=== PATIENT | female | born 1960 | race African-American/Black ===

== ENCOUNTER 2017-01-01 12:08 | Inpatient (IN) | payer OTHER ==
[2017-01-01 12:35] VITALS: BMI 15.6
--- NOTE | 2017-01-01 16:19 | HP ---
COWS - Scale Resting Pulse: 4= [place] > 121 Sweatin= Chills/Flushing Restless Observation: 1= Difficult to Sit Still Pupil Size: 0= Normal to Room Light Bone or Joint Aches: 4=Acute Joint/Muscle Pain Runny Nose/ Eye Tearin= None GI Upset > 30mins: 2= Nausea/Diarrhea (AND STOMACH CRAMPS) Tremor Observation: 2= Slight Tremor Visible Yawning Observation: 2= >3x During Session Anxiety or Irritability: 2=Irritable/Anxious Goose Flesh Skin: 0=Smooth Skin COWS Score: 18 CIWA Score - CIWA Score Nausea/Vomitin (DIARRHEA) Muscle Tremors: 4-Moderate,w/Arms Extend Anxiety: 4-Mod. Anxious/Guarded Agitation: 4-Moderately Restless Paroxysmal Sweats: 1-Minimal Palms Moist Orientation: 0-Oriented Tacttile Disturbances: 3-Moderate Itch/Numb/Burn Auditory Disturbances: 0-None Visual Disturbances: 0-None Headache: 0-None Present CIWA-Ar Total Score: 19 Admission ROS S - HPI Chief Complaint: DETOX TX FOR HEROIN AND ALCOHOL DEPENDENCE SEEKING DETOX TX Allergies/Adverse Reactions: Allergies Allergy/AdvReac Type Severity Reaction Status Date / Time No Known Drug Allergies Allergy Verified 01/01/17 12:28 chicken Allergy Severe Itching Uncoded 01/01/17 12:28 fish Allergy Severe Itching Uncoded 01/01/17 12:28 History of Present Illness: 56 Y/O AA/FEMALE WITH A HX OF HEROIN,COCAINE,ALCOHOL AND XANAX DEPENDENCE SEEKING DETOX TX Exam Limitations: No Limitations - Ebola screening Have you traveled outside of the country in the last 21 days: No Have you had contact with anyone from an Ebola affected area: No Have you been sick,other than usual withdrawal symptoms: No Do you have a fever: No - Review of Systems Constitutional: Chills, Loss of Appetite, Night Sweats, Changes in sleep, Unintentional Wgt. Loss EENT: reports: Tearing, Nose Congestion, Dental Problems (NO TEEHT) Respiratory: reports: Shortness of Breath (HX ASTHMA), Wheezing Cardiac: reports: No Symptoms Reported GI: reports: Constipated, Diarrhea, Nausea, Vomiting, Abdominal cramping : reports: No Symptoms Reported Musculoskeletal: reports: Back Pain, Joint Pain, Muscle Pain Integumentary: reports: Lesions (COCAINE RASH SCARS FROM SCRATCHING/"DIGGING"), Rash Neuro: reports: Tremors, Unsteady Gait Endocrine: reports: No Symptoms Reported Hematology: reports: No Symptoms Reported Psychiatric: reports: Orientated x3, Anxious, Depressed Other Systems: Reviewed and Negative Patient History - Patient Medical History Hx Anemia: No Hx Asthma: Yes (Pt is on MDI) Hx Chronic Obstructive Pulmonary Disease (COPD): No Hx Cancer: No Hx Cardiac Disorders: No Hx Congestive Heart Failure: No Hx Hypertension: No Hx Hypercholesterolemia: No Hx Pacemaker: No HX Cerebrovascular Accident: No Hx Seizures: No Hx Dementia: No Hx Diabetes: No Hx Gastrointestinal Disorders: No Hx Liver Disease: Yes (hep C) Hx Genitourinary Disorders: No Hx Sexually Transmitted Disorders: Yes (Tx for syphillis) Hx Renal Disease (ESRD): No Hx Thyroid Disease: No Hx Human Immunodeficiency Virus (HIV): Yes (on atripla ) Hx Hepatitis C: Yes Hx Depression: Yes Hx Suicide Attempt: No (DENIES) Hx Bipolar Disorder: No Hx Schizophrenia: Yes - Patient Surgical History Past Surgical History: Yes Hx Neurologic Surgery: No Hx Cataract Extraction: No Hx Cardiac Surgery: No Hx Lung Surgery: No Hx Breast Surgery: No Hx Breast Biopsy: No Hx Abdominal Surgery: No Hx Appendectomy: No Hx Cholecystectomy: No Hx Genitourinary Surgery: No Hx Section: No Hx Orthopedic Surgery: No Hx Hysterectomy: No Other Surgical History: Tubal ligation Anesthesia Reaction: No - PPD History Previous Implant?: Yes Documented Results: Positive w/o proof Implanted On Prior R Admission?: No Results: hx. positive PPD to be Administered?: No - Reproductive History Patient is a Female of Child Bearing Age (11 -55 yrs old): No (POST MENOPAUSAL) Last Menstrual Period: 05/27/94 Patient : No - Smoking Cessation Smoking history: Current every day smoker Have you smoked in the past 12 months: Yes Aproximately how many cigarettes per day: 20 Hx Chewing Tobacco Use: No Initiated information on smoking cessation: Yes 'Breaking Loose' booklet given: 01/01/17 - Substance & Tx. History Hx Alcohol Use: Yes (VODKA/BEER) Hx Substance Use: Yes (XANAX/HEROIN/CRACK) - Substances Abused Heroin Route: Injection Frequency: Daily Amount used: 6-7 BAGS Age of first use: 26 Date of Last Use: 12/31/16 Alcohol Route: Oral Frequency: Daily Amount used: 2 PINTS VODKA Age of first use: 9 Date of Last Use: 12/31/16 Crack Route: Smoking Frequency: Daily Amount used: $100 Age of first use: 36 Date of Last Use: 12/31/16 Alprazolam (Xanax) Route: Oral Frequency: 3-6 times per week Amount used: 6MG Age of first use: 54 Date of Last Use: 12/30/16 Family Disease History - Family Disease History Family Disease History: Heart Disease: Mother, Respiratory: Sister (que) Admission Physical Exam [facility] - Vital Signs Vital Signs: Vital Signs - 24 hr 01/01/17 01/01/17 12:11 12:33 Temperature 98.8 F 96.7 F L Pulse Rate 67 122 H Respiratory 18 18 Rate Blood Pressure 122/50 125/88 - Physical General Appearance: Yes: Moderate Distress, Irritable, Anxious HEENTM: Yes: EOMI, Normocephalic, FARTUN, Pharynx Normal Respiratory: Yes: Chest Non-Tender, Lungs Clear, Normal Breath Sounds, No Respiratory Distress Neck: Yes: Supple, Trachea in good position Breast: Yes: Breast Exam Deferred Cardiology: Yes: Regular Rhythm, Regular Rate, S1, S2 Abdominal: Yes: Normal Bowel Sounds, Non Tender, Soft Genitourinary: Yes: Other (N/C) Back: Yes: Within Normal Limits Musculoskeletal: Yes: full range of Motion, Gait Steady Extremities: Yes: Normal Range of Motion, Non-Tender Neurological: Yes: cleaning manager II-XII NML intact, Fully Oriented, Alert Integumentary: Yes: Dry, Warm Lymphatic: Yes: Within Normal Limits - Diagnostic (1) Hepatitis C Current Visit: Yes Status: Chronic Qualifiers: Viral hepatitis chronicity: chronic (2) Alcohol dependence with uncomplicated withdrawal Current Visit: Yes Status: Acute (3) Bronchial asthma Current Visit: Yes Status: Chronic Qualifiers: Asthma severity: mild intermittent Asthma complication type: uncomplicated Qualified Code(s): J45.20 - Mild intermittent asthma, uncomplicated (4) Cocaine dependence, uncomplicated Current Visit: Yes Status: Acute (5) HIV (human immunodeficiency virus infection) Current Visit: Yes Status: Chronic (6) Nicotine dependence Current Visit: Yes Status: Acute Qualifiers: Nicotine product type: cigarettes Substance use status: uncomplicated Qualified Code(s): F17.210 - Nicotine dependence, cigarettes, uncomplicated (7) Sedative hypnotic or anxiolytic dependence Current Visit: Yes Status: Acute Cleared for Admission [facility] - Detox or Rehab [facility] Level of Care: Medically Managed Detox Regimen/Protocol: Methadone/Librium [facility] Breath Alcohol Content Breath Alcohol Content: 0.285 Urine Pregancy Test - Result Urine Test Results: Negative- NO Line Present Urine Drug Screen - Results Drug Screen Negative: No Urine Drug Screen Results: BZO-Benzodiazepines
[2017-01-01] MEDS ORDERED: chlordiazePOXIDE HCL 25 MG CAPSULE PO PRN (16:37)
[2017-01-01] MEDS ORDERED: MAGNESIUM HYDROX 2400MG/30ML ORAL SUSPENSION 30 ML CUP PO PRN (16:37)
[2017-01-01] MEDS ORDERED: LOPERAMIDE HCL 2 MG CAPSULE PO PRN (16:37)
[2017-01-01] MEDS ORDERED: IBUPROFEN 400 MG TABLET (FP) PO PRN (16:37)
[2017-01-01] MEDS ORDERED: METHADONE HCL 10 MG TABLET (FOR DETOX USE ONLY) PO ONE ×2 (16:37→23:00)
[2017-01-01] MEDS ORDERED: guaiFENesin/D-METHORPHAN HB 10 ML UNIT-DOSE CUPS PO PRN (16:37)
[2017-01-01] MEDS ORDERED: MAG HYDROX/AL HYDROX/SIMETH 30 ML UNIT-DOSE CUP PO PRN (16:37)
[2017-01-01] MEDS ORDERED: chlordiazePOXIDE HCL 25 MG CAPSULE PO ONE (16:37)
[2017-01-01] MEDS ORDERED: P-EPHED 60MG/TRIPROLIDI 2.5MG TABLET PO PRN (16:37)
[2017-01-01] MEDS ORDERED: NICOTINE POLACRILEX 2 MG GUM BC PRN (16:37)
[2017-01-01] MEDS ORDERED: MENTHOL/PHENOL 1 EACH UD MM PRN (16:37)
[2017-01-01] MEDS ORDERED: MAGNESIUM CITRATE 300 ML BOTTLE PO PRN (16:37)
[2017-01-01] MEDS ORDERED: ACETAMINOPHEN 325 MG TABLET (FP) PO PRN (16:37)
[2017-01-01] MEDS: NICOTINE 14 MG/24 HOURS TOPICAL PATCH TD SCH (17:55)
[2017-01-01 21:12] LABS: URINE APPEARANCE SLCLOUDY; URINE BILIRUBIN NEGATIVE (NEGATIVE); URINE BLOOD 1+ (NEGATIVE); URINE COLOR AMBER; URINE GLUCOSE (UA) NEGATIVE (NEGATIVE); URINE KETONE NEGATIVE (NEGATIVE); URINE LEUK ESTERASE NEGATIVE (NEGATIVE); URINE NITRITE NEGATIVE (NEGATIVE); URINE UROBILINOGEN 4.0 E.U/dl mg/dL (0.2-1.0)
[2017-01-01 21:19] LABS: URINE PROTEIN 1+ (NEGATIVE)
[2017-01-01 21:32] LABS: CALCIUM OXALATE CRYSTALS FEW /hpf (NONE SEEN); URINE BACTERIA RARE /hpf (NONE SEEN); URINE MUCUS MANY; URINE RBC 13 /hpf (0-3); URINE WBC 11 /hpf (3-5)
[2017-01-01] MEDS: chlordiazePOXIDE HCL 25 MG CAPSULE PO SCH (22:38)
[2017-01-01] MEDS: THIAMINE HCL 100 MG TABLET (FP) PO SCH (22:38)
[2017-01-02] MEDS: chlordiazePOXIDE HCL 25 MG CAPSULE PO SCH ×4 (05:53→22:23)
--- NOTE | 2017-01-02 09:31 | EKG ---
Test Reason : Blood Pressure : / mmHG Vent. Rate : 043 BPM Atrial Rate : 043 BPM P-R Int : 148 ms QRS Dur : 098 ms QT Int : 494 ms P-R-T Axes : -04 070 034 degrees QTc Int : 417 ms MARKED SINUS BRADYCARDIA INCOMPLETE RIGHT BUNDLE BRANCH BLOCK T WAVE ABNORMALITY, CONSIDER ANTERIOR ISCHEMIA ABNORMAL ECG NO PREVIOUS ECGS AVAILABLE Confirmed by MD ALFRED, SERGIO ([id number]) on 01/02/2017 9:30:56 AM Referred By: Juan Kennedy Confirmed By:SERGIO SIMON MD
[2017-01-02] MEDS ORDERED: METHADONE HCL 10 MG TABLET (FOR DETOX USE ONLY) PO SCH (10:00)
[2017-01-02] MEDS: PRENATAL VITAMINS W/ FOLIC ACID TABLET (FP) PO SCH (10:37)
[2017-01-02] MEDS: NICOTINE 14 MG/24 HOURS TOPICAL PATCH TD SCH (10:39)
[2017-01-02 11:07] LABS: MCH 32.4 pg (25.7-33.7); MCHC 33.7 g/dl (32.0-36.0); MEAN CELL VOLUME 96.1 fl (80-96); MEAN PLT VOLUME 10.6 fl (7.5-11.1); PLATELET COUNT 162 K/MM3 (134-434); RDW 13.3 % (11.6-15.6); WHITE BLOOD COUNT 3.1 K/mm3 (4.0-10.0)
[2017-01-02 11:13] LABS: ALBUMIN 3.7 g/dl (3.4-5.0); ALK PHOS 86 U/L (45-117); ANION GAP 11 (8-16); BILIRUBIN,TOTAL 0.7 mg/dL (0.2-1.0); CALCIUM 8.4 mg/dL (8.5-10.1); CO2 23 mmol/L (21-32); CREATININE 0.8 mg/dL (0.55-1.02); GLUCOSE,RANDOM 95 mg/dL (74-106); SGOT/AST 30 U/L (15-37); SGPT/ALT 24 U/L (12-78); TOT PROT 8.3 g/dl (6.4-8.2)
--- NOTE | 2017-01-02 12:37 | PN ---
S CIWA - CIWA Score Nausea/Vomitin Muscle Tremors: 2 Anxiety: 2 Agitation: 2 Paroxysmal Sweats: 2 Orientation: 0-Oriented Tacttile Disturbances: 2-Mild Itch/Numbness/Burn Auditory Disturbances: 0-None Visual Disturbances: 1-Very Mild Sensitivity Headache: 2-Mild CIWA-Ar Total Score: 15 BHS COWS - Scale Resting Pulse: 0= [place] 80 or Below Sweatin=Flushed/Facial Moisture Restless Observation: 1= Difficult to Sit Still Pupil Size: 0= Normal to Room Light Bone or Joint Aches: 2= Severe Diffuse Aches Runny Nose/ Eye Tearin= Nasal Congestion GI Upset > 30mins: 2= Nausea/Diarrhea Tremor Observation of Outstretched Hands: 2= Slight Tremor Visible Yawning Observation: 0= None Anxiety or Irritability: 2=Irritable/Anxious Goose Flesh Skin: 0=Smooth Skin COWS Score: 12 BHS Progress Note (SOAP) Subjective: interrupted sleep, abdominal cramps, shakes and sweats Objective: 01/02/17 12:37 Vital Signs - 8 hr 01/02/17 01/02/17 01/02/17 04:58 06:51 10:00 Temperature 97.6 F 97.2 F L Pulse Rate 5 L 67 Respiratory 18 16 18 Rate Blood Pressure 105/71 144/61 Laboratory Last Values WBC 3.1 K/mm3 (4.0-10.0) L 01/02/17 06:00 RBC 3.87 M/mm3 (3.60-5.2) 01/02/17 06:00 Hgb 12.5 GM/dL (10.7-15.3) 01/02/17 06:00 Hct 37.2 % (32.4-45.2) 01/02/17 06:00 MCV 96.1 fl (80-96) H 01/02/17 06:00 MCH 32.4 pg (25.7-33.7) 01/02/17 06:00 MCHC 33.7 g/dl (32.0-36.0) 01/02/17 06:00 RDW 13.3 % (11.6-15.6) 01/02/17 06:00 Plt Count 162 K/MM3 (134-434) 01/02/17 06:00 MPV 10.6 fl (7.5-11.1) D 01/02/17 06:00 Sodium 139 mmol/L (136-145) 01/02/17 06:00 Potassium 4.0 mmol/L (3.5-5.1) 01/02/17 06:00 Chloride 105 mmol/L (98-107) 01/02/17 06:00 Carbon Dioxide 23 mmol/L (21-32) 01/02/17 06:00 Anion Gap 11 (8-16) 01/02/17 06:00 BUN 14 mg/dL (7-18) D 01/02/17 06:00 Creatinine 0.8 mg/dL (0.55-1.02) 01/02/17 06:00 Creat Clearance w eGFR > 60 (>60) 01/02/17 06:00 Random Glucose 95 mg/dL (74-106) 01/02/17 06:00 Calcium 8.4 mg/dL (8.5-10.1) L 01/02/17 06:00 Total Bilirubin 0.7 mg/dL (0.2-1.0) D 01/02/17 06:00 AST 30 U/L (15-37) 01/02/17 06:00 ALT 24 U/L (12-78) 01/02/17 06:00 Alkaline Phosphatase 86 U/L (45-117) D 01/02/17 06:00 Total Protein 8.3 g/dl (6.4-8.2) H 01/02/17 06:00 Albumin 3.7 g/dl (3.4-5.0) 01/02/17 06:00 Urine Color Elvira 01/01/17 20:00 Urine Appearance Slcloudy 01/01/17 20:00 Urine pH 5.0 (5.0-8.0) D 01/01/17 20:00 Ur Specific [place] >= 1.030 (1.005-1.025) H 01/01/17 20:00 Urine Protein 1+ (NEGATIVE) H 01/01/17 20:00 Urine Glucose (UA) Negative (NEGATIVE) 01/01/17 20:00 Urine Ketones Negative (NEGATIVE) 01/01/17 20:00 Urine Blood 1+ (NEGATIVE) H 01/01/17 20:00 Urine Nitrite Negative (NEGATIVE) 01/01/17 20:00 Urine Bilirubin Negative (NEGATIVE) 01/01/17 20:00 Urine Urobilinogen 4.0 e.u/dl mg/dL (0.2-1.0) H 01/01/17 20:00 Ur Leukocyte Esterase Negative (NEGATIVE) 01/01/17 20:00 Urine RBC 13 /hpf (0-3) 01/01/17 20:00 Urine WBC 11 /hpf (3-5) 01/01/17 20:00 Ur Epithelial Cells Few /hpf (FEW) 01/01/17 20:00 Calcium Oxalate Crystal Few /hpf (NONE SEEN) 01/01/17 20:00 Urine Bacteria Rare /hpf (NONE SEEN) 01/01/17 20:00 Urine Mucus Many 01/01/17 20:00 lab noted Assessment: 01/02/17 12:37 withdrawal sx Plan: continue detox
[2017-01-02 13:11] LABS: SICKLE CELL SCREEN NEGATIVE (NEGATIVE)
[2017-01-02] MEDS: HYDROCORTISONE 1% TOPICAL CREAM 30 GM TUBE TP PRN (14:44)
[2017-01-02] MEDS: hydrOXYzine PAMOATE 50 MG CAPSULE (FP) PO PRN (14:45)
--- NOTE | 2017-01-02 14:48 | CONSULT ---
[facility] Psychiatric Consult - Data Date of interview: 01/02/17 Admission source: [facility] Identifying data: Readmission to [facility] for this 56 y/o AA female seeking detox treatment on for heroin,benzodiazepine,alcohol and cocaine dependence.Patient is single,a mother of three,domiciled,unemployed and supported on [employer] funds. Substance Abuse History: Confirmed by patient in this interview. Smoking Cessation. Smoking history: Current every day smoker. Have you smoked in the past 12 months: Yes. Aproximately how many cigarettes per day: 20. Hx Chewing Tobacco Use: No. Initiated information on smoking cessation: Yes. 'Breaking Loose' booklet given: 01/01/17. - Substance & Tx. History. Hx Alcohol Use: Yes (VODKA/BEER). Hx Substance Use: Yes (XANAX/HEROIN/CRACK). - Substances Abused. Heroin. Route: Injection. Frequency: Daily. Amount used: 6-7 BAGS. Age of first use: 26. Date of Last Use: 12/31/16. Alcohol. Route: Oral. Frequency: Daily. Amount used: 2 PINTS VODKA. Age of first use: 9. Date of Last Use: 12/31/16. Crack. Route: Smoking. Frequency: Daily. Amount used: $100. Age of first use: 36. Date of Last Use: 12/31/16. Alprazolam (Xanax). Route: Oral. Frequency: 3-6 times per week. Amount used: 6MG. Age of first use: 54. Date of Last Use: 12/30/16 Medical History: HIV infection (on antiretroviral medications),bronchial asthma and chronic skin rash.History of treatment for syphilis. Psychiatric History: Diagnosed with Schizophrenia.History of multiple psychiatric hospitalizations.Known to [facility].Patient reports total non-adherence to psychotropic medications (including methadone maintenance ).Ms Gonzalez was discharged from [facility],months ago,on risperdal and cogentin.Not taken.Patient reports that she dropped out of the MMTP program at [facility] (methadone daily dose = 170 mg).Known history of suicide attempts. Physical/Sexual Abuse/Trauma History: Patient declines to discuss this domain. Additional Comment: Urine Drug Screen Results: BZO-Benzodiazepines.Noted. Mental Status Exam - Mental Status Exam Alert and Oriented to: Time, Place, Person Cognitive Function: Good Patient Appearance: Well Groomed Mood: Nervous, Withdrawn, Anxious Affect: Mood Congruent Patient Behavior: Fatigued, Talkative, Cooperative (medication-seeking) Speech Pattern: Clear Voice Loudness: Normal Thought Process: Goal Oriented Thought Disorder: Not Present Hallucinations: Denies Suicidal Ideation: Denies Homicidal Ideation: Denies Insight/Judgement: Poor Sleep: Poorly, Difficulty falling asleep Appetite: Fair, Weight loss Muscle strength/Tone: Normal Gait/Station: Normal Psychiatric Findings - Problem List ([place] 1, 2,3) (1) Schizophrenia Current Visit: Yes Status: Chronic (2) Alcohol dependence with uncomplicated withdrawal Current Visit: Yes Status: Acute (3) Cocaine dependence, uncomplicated Current Visit: Yes Status: Acute (4) Sedative hypnotic or anxiolytic dependence Current Visit: Yes Status: Acute (5) Nicotine dependence Current Visit: Yes Status: Acute Qualifiers: Nicotine product type: cigarettes Substance use status: uncomplicated Qualified Code(s): F17.210 - Nicotine dependence, cigarettes, uncomplicated (6) HIV (human immunodeficiency virus infection) Current Visit: Yes Status: Chronic (7) Hepatitis C Current Visit: Yes Status: Chronic Qualifiers: Viral hepatitis chronicity: chronic (8) Bronchial asthma Current Visit: Yes Status: Chronic Qualifiers: Asthma severity: mild intermittent Asthma complication type: uncomplicated Qualified Code(s): J45.20 - Mild intermittent asthma, uncomplicated (9) Insomnia Current Visit: Yes Status: Acute - Initial Treatment Plan Initial Treatment Plan: Psychoeducation.Detoxification.Medications : risperdal 0.5 mg po bid + cogentin 0.5 mg po hs.Side effects/benefits of both medications are discussed with the patient.She agrees with this careplan.Observation.
[2017-01-02] MEDS: diphenhydrAMINE HCL 50 MG CAPSULE PO PRN (22:22)
[2017-01-02] MEDS: THIAMINE HCL 100 MG TABLET (FP) PO SCH (22:22)
[2017-01-02] MEDS: risperiDONE 0.5 MG TABLET (FP) PO SCH (22:23)
[2017-01-02] MEDS: BENZTROPINE MESYLATE 0.5 MG TABLET (FP) PO SCH (22:23)
[2017-01-03] MEDS: chlordiazePOXIDE HCL 25 MG CAPSULE PO SCH ×3 (06:28→17:44)
[2017-01-03] MEDS: PRENATAL VITAMINS W/ FOLIC ACID TABLET (FP) PO SCH (10:09)
[2017-01-03] MEDS: METHADONE HCL 5 MG TABLET (FOR DETOX USE ONLY) PO SCH (10:09)
[2017-01-03] MEDS: risperiDONE 0.5 MG TABLET (FP) PO SCH ×2 (10:10→22:15)
[2017-01-03] MEDS: NICOTINE 14 MG/24 HOURS TOPICAL PATCH TD SCH (10:43)
[2017-01-03] MEDS: hydrOXYzine PAMOATE 50 MG CAPSULE (FP) PO PRN (13:59)
--- NOTE | 2017-01-03 19:49 | PN ---
[facility] CIWA - CIWA Score Nausea/Vomitin-No Nausea/No Vomiting Muscle Tremors: 3 Anxiety: 4-Mod. Anxious/Guarded Agitation: 4-Moderately Restless Paroxysmal Sweats: 3 Orientation: 0-Oriented Tacttile Disturbances: 0-None Auditory Disturbances: 0-None Visual Disturbances: 0-None Headache: 0-None Present CIWA-Ar Total Score: 14 S COWS - Scale Resting Pulse: 0= [place] 80 or Below Sweatin=Flushed/Facial Moisture Restless Observation: 1= Difficult to Sit Still Pupil Size: 0= Normal to Room Light Bone or Joint Aches: 1= Mild Discomfort Runny Nose/ Eye Tearin= Nasal Congestion GI Upset > 30mins: 2= Nausea/Diarrhea Tremor Observation of Outstretched Hands: 2= Slight Tremor Visible Yawning Observation: 1= 1-2x During Session Anxiety or Irritability: 2=Irritable/Anxious Goose Flesh Skin: 0=Smooth Skin COWS Score: 12 S Progress Note (SOAP) Objective: 01/03/17 19:48 Vital Signs - 8 hr 01/03/17 01/03/17 15:07 17:41 Temperature 98.6 F 98.1 F Pulse Rate 81 64 Respiratory 18 18 Rate Blood Pressure 148/91 96/52 Laboratory Last Values WBC 3.1 K/mm3 (4.0-10.0) L 01/02/17 06:00 RBC 3.87 M/mm3 (3.60-5.2) 01/02/17 06:00 Hgb 12.5 GM/dL (10.7-15.3) 01/02/17 06:00 Hct 37.2 % (32.4-45.2) 01/02/17 06:00 MCV 96.1 fl (80-96) H 01/02/17 06:00 MCH 32.4 pg (25.7-33.7) 01/02/17 06:00 MCHC 33.7 g/dl (32.0-36.0) 01/02/17 06:00 RDW 13.3 % (11.6-15.6) 01/02/17 06:00 Plt Count 162 K/MM3 (134-434) 01/02/17 06:00 MPV 10.6 fl (7.5-11.1) D 01/02/17 06:00 Sickle Cell Screen Negative (NEGATIVE) 01/02/17 06:00 Sodium 139 mmol/L (136-145) 01/02/17 06:00 Potassium 4.0 mmol/L (3.5-5.1) 01/02/17 06:00 Chloride 105 mmol/L (98-107) 01/02/17 06:00 Carbon Dioxide 23 mmol/L (21-32) 01/02/17 06:00 Anion Gap 11 (8-16) 01/02/17 06:00 BUN 14 mg/dL (7-18) D 01/02/17 06:00 Creatinine 0.8 mg/dL (0.55-1.02) 01/02/17 06:00 Creat Clearance w eGFR > 60 (>60) 01/02/17 06:00 Random Glucose 95 mg/dL (74-106) 01/02/17 06:00 Calcium 8.4 mg/dL (8.5-10.1) L 01/02/17 06:00 Total Bilirubin 0.7 mg/dL (0.2-1.0) D 01/02/17 06:00 AST 30 U/L (15-37) 01/02/17 06:00 ALT 24 U/L (12-78) 01/02/17 06:00 Alkaline Phosphatase 86 U/L (45-117) D 01/02/17 06:00 Total Protein 8.3 g/dl (6.4-8.2) H 01/02/17 06:00 Albumin 3.7 g/dl (3.4-5.0) 01/02/17 06:00 Urine Color Elvira 01/01/17 20:00 Urine Appearance Slcloudy 01/01/17 20:00 Urine pH 5.0 (5.0-8.0) D 01/01/17 20:00 Ur Specific [place] >= 1.030 (1.005-1.025) H 01/01/17 20:00 Urine Protein 1+ (NEGATIVE) H 01/01/17 20:00 Urine Glucose (UA) Negative (NEGATIVE) 01/01/17 20:00 Urine Ketones Negative (NEGATIVE) 01/01/17 20:00 Urine Blood 1+ (NEGATIVE) H 01/01/17 20:00 Urine Nitrite Negative (NEGATIVE) 01/01/17 20:00 Urine Bilirubin Negative (NEGATIVE) 01/01/17 20:00 Urine Urobilinogen 4.0 e.u/dl mg/dL (0.2-1.0) H 01/01/17 20:00 Ur Leukocyte Esterase Negative (NEGATIVE) 01/01/17 20:00 Urine RBC 13 /hpf (0-3) 01/01/17 20:00 Urine WBC 11 /hpf (3-5) 01/01/17 20:00 Ur Epithelial Cells Few /hpf (FEW) 01/01/17 20:00 Calcium Oxalate Crystal Few /hpf (NONE SEEN) 01/01/17 20:00 Urine Bacteria Rare /hpf (NONE SEEN) 01/01/17 20:00 Urine Mucus Many 01/01/17 20:00 RPR Titer Nonreactive (NONREACTIVE) 01/02/17 06:00 labs noted Assessment: 01/03/17 19:49 Withdrawal sx
[2017-01-03] MEDS: THIAMINE HCL 100 MG TABLET (FP) PO SCH (22:15)
[2017-01-03] MEDS: diphenhydrAMINE HCL 50 MG CAPSULE PO PRN (22:15)
[2017-01-03] MEDS: chlordiazePOXIDE 5 MG CAPSULE PO SCH (22:15)
[2017-01-03] MEDS: BENZTROPINE MESYLATE 0.5 MG TABLET (FP) PO SCH (22:15)
[2017-01-04] MEDS: chlordiazePOXIDE 5 MG CAPSULE PO SCH ×3 (05:50→17:22)
[2017-01-04] MEDS: METHADONE HCL 5 MG TABLET (FOR DETOX USE ONLY) PO SCH (10:31)
[2017-01-04] MEDS: PRENATAL VITAMINS W/ FOLIC ACID TABLET (FP) PO SCH (10:31)
[2017-01-04] MEDS: risperiDONE 0.5 MG TABLET (FP) PO SCH ×2 (10:31→22:20)
[2017-01-04] MEDS: NICOTINE 14 MG/24 HOURS TOPICAL PATCH TD SCH (10:33)
--- NOTE | 2017-01-04 11:20 | PN ---
BHS Progress Note (SOAP) Subjective: interrupted sleep agitation irritable Objective: 01/04/17 11:19 Vital Signs Temperature 97.5 F L 01/04/17 10:00 Pulse Rate 74 01/04/17 10:00 Respiratory Rate 18 01/04/17 10:00 Blood Pressure 99/59 01/04/17 10:00 O2 Sat by Pulse Oximetry (%) awake/alert ambulating no acute distress Assessment: 01/04/17 11:19 withdrawal sx Plan: continue detox
[2017-01-04] MEDS: hydrOXYzine PAMOATE 50 MG CAPSULE (FP) PO PRN (13:50)
[2017-01-04] MEDS: HYDROCORTISONE 1% TOPICAL CREAM 30 GM TUBE TP PRN (22:20)
[2017-01-04] MEDS: THIAMINE HCL 100 MG TABLET (FP) PO SCH (22:20)
[2017-01-04] MEDS: chlordiazePOXIDE HCL 10 MG CAPSULE PO SCH (22:20)
[2017-01-04] MEDS: BENZTROPINE MESYLATE 1 MG TABLET (FP) PO SCH (22:20)
[2017-01-05] MEDS: chlordiazePOXIDE HCL 10 MG CAPSULE PO SCH ×3 (05:42→17:58)
[2017-01-05] MEDS ORDERED: METHADONE HCL 10 MG TABLET (FOR DETOX USE ONLY) PO SCH (10:00)
[2017-01-05] MEDS: PRENATAL VITAMINS W/ FOLIC ACID TABLET (FP) PO SCH (10:27)
[2017-01-05] MEDS: NICOTINE 14 MG/24 HOURS TOPICAL PATCH TD SCH (10:27)
[2017-01-05] MEDS: risperiDONE 0.5 MG TABLET (FP) PO SCH ×2 (10:27→22:03)
[2017-01-05] MEDS ORDERED: ALBUTEROL SO4 6.7 GM HFA INHALER IH PRN (11:24)
--- NOTE | 2017-01-05 11:28 | PN ---
BHS Progress Note (SOAP) Subjective: nasua, sweats, interrupted sleep, anxiety, tremors Objective: 01/05/17 11:27 Vital Signs - 8 hr 01/05/17 01/05/17 01/05/17 03:30 06:57 10:32 Temperature 97.4 F L 99.1 F Pulse Rate 64 83 Respiratory 18 16 18 Rate Blood Pressure 119/76 100/63 Laboratory Tests 01/01/17 01/02/17 01/02/17 20:00 06:00 06:00 WBC 3.1 L RBC 3.87 Hgb 12.5 Hct 37.2 MCV 96.1 H MCH 32.4 MCHC 33.7 RDW 13.3 Plt Count 162 MPV 10.6 D Sickle Cell Screen Negative Sodium 139 Potassium 4.0 Chloride 105 Carbon Dioxide 23 Anion Gap 11 BUN 14 D Creatinine 0.8 Creat Clearance w eGFR > 60 Random Glucose 95 Calcium 8.4 L Total Bilirubin 0.7 D AST 30 ALT 24 Alkaline Phosphatase 86 D Total Protein 8.3 H Albumin 3.7 Urine Color Elvira Urine Appearance Slcloudy Urine pH 5.0 D Ur Specific [place] >= 1.030 H Urine Protein 1+ H Urine Glucose (UA) Negative Urine Ketones Negative Urine Blood 1+ H Urine Nitrite Negative Urine Bilirubin Negative Urine Urobilinogen 4.0 e.u/dl H Ur Leukocyte Esterase Negative Urine RBC 13 Urine WBC 11 Ur Epithelial Cells Few Calcium Oxalate Crystal Few Urine Bacteria Rare Urine Mucus Many RPR Titer 01/02/17 06:00 WBC RBC Hgb Hct MCV MCH MCHC RDW Plt Count MPV Sickle Cell Screen Sodium Potassium Chloride Carbon Dioxide Anion Gap BUN Creatinine Creat Clearance w eGFR Random Glucose Calcium Total Bilirubin AST ALT Alkaline Phosphatase Total Protein Albumin Urine Color Urine Appearance Urine pH Ur Specific [place] Urine Protein Urine Glucose (UA) Urine Ketones Urine Blood Urine Nitrite Urine Bilirubin Urine Urobilinogen Ur Leukocyte Esterase Urine RBC Urine WBC Ur Epithelial Cells Calcium Oxalate Crystal Urine Bacteria Urine Mucus RPR Titer Nonreactive 01/05/17 11:27 Assessment: 01/05/17 11:28 withdrawwal sx Plan: cont detox, fluids
[2017-01-05] MEDS: hydrOXYzine PAMOATE 50 MG CAPSULE (FP) PO PRN (13:37)
[2017-01-05] MEDS: diphenhydrAMINE HCL 50 MG CAPSULE PO PRN (22:03)
[2017-01-05] MEDS: THIAMINE HCL 100 MG TABLET (FP) PO SCH (22:03)
[2017-01-05] MEDS: BENZTROPINE MESYLATE 1 MG TABLET (FP) PO SCH (22:04)
[2017-01-06] MEDS ORDERED: METHADONE HCL 5 MG TABLET (FOR DETOX USE ONLY) PO SCH (06:00)
[2017-01-06 06:36] VITALS: BP 101/62; PULSE 80; TEMP 98
--- NOTE | 2017-01-06 09:08 | DS ---
[facility] Detox Discharge Summary Admission Date: 01/01/17 Discharge Date: 01/06/17 - History Present History: Alcohol Dependence, Cocaine Dependence, Opioid Dependence - Physical Exam Results Vital Signs: Vital Signs Temperature 98 F 01/06/17 06:35 Pulse Rate 80 01/06/17 06:35 Respiratory Rate 18 01/06/17 06:35 Blood Pressure 101/62 01/06/17 06:35 O2 Sat by Pulse Oximetry (%) - Treatment Hospital Course: Detox Protocol Followed, Detoxed Safely, Responded well, Discharged Condition Good, Rehab Referral Accepted - Medication Discharge Medications: Ambulatory Orders Efavirenz/Emtricitab/Tenofovir [Atripla -] 1 tab PO DAILY 09/29/15 Albuterol Sulfate Inhaler - [Ventolin HFA Inhaler -] 2 puff IH Q4H PRN 10/03/15 Benztropine Mesylate [Cogentin -] 0.5 mg PO BID #30 tablet 01/02/17 Risperidone [Risperdal] 1 mg PO BID #30 tablet 01/02/17 - Diagnosis (1) Alcohol dependence with uncomplicated withdrawal Current Visit: Yes Status: Chronic (2) Cocaine dependence, uncomplicated Current Visit: Yes Status: Chronic (3) Insomnia Current Visit: Yes Status: Chronic Qualifiers: Insomnia type: primary Qualified Code(s): F51.01 - Primary insomnia (4) Nicotine dependence Current Visit: Yes Status: Chronic Qualifiers: Nicotine product type: cigarettes Substance use status: uncomplicated Qualified Code(s): F17.210 - Nicotine dependence, cigarettes, uncomplicated (5) Sedative hypnotic or anxiolytic dependence Current Visit: Yes Status: Chronic (6) HIV (human immunodeficiency virus infection) Current Visit: Yes Status: Chronic (7) Hepatitis C Current Visit: Yes Status: Chronic Qualifiers: Viral hepatitis chronicity: chronic (8) Methadone maintenance therapy patient Current Visit: No Status: Deleted (9) Sedative, hypnotic or anxiolytic dependence with withdrawal, uncomplicated Current Visit: Yes Status: Chronic - AMA Did Patient Leave Against Medical Advice: No
[2017-01-06] MEDS ORDERED: EFAVIRENZ 600 MG TABLET PO SCH (10:00)
[2017-01-06] MEDS ORDERED: PATIENT'S OWN MEDICATION (NON-FORMULARY) (Efavirenz/Emtricitab/Tenofovir 1 TAB) PO SCH (10:00)
[2017-01-06] MEDS ORDERED: EMTRICITABINE 200MG/TENOFOVIR 300MG PO SCH (10:00)
== END 2017-01-06 09:24 | disposition home or self-care (01) | DRG 773 ==
LOC: YASAS 12:08 → Y6N 16:18
PROVIDERS: ADMIT Internal Medicine Addiction Medicine; ATTEND Internal Medicine Addiction Medicine
PROC: HZ2ZZZZ Detoxification Services for Substance Abuse Treatment (ICD-10-PCS; principal; 2017-01-01)
DX: F11.20 Opioid dependence, uncomplicated (principal); F13.230 Sedative, hypnotic or anxiolytic dependence with withdrawal, uncomplicated; F10.230 Alcohol dependence with withdrawal, uncomplicated; F14.20 Cocaine dependence, uncomplicated; F17.210 Nicotine dependence, cigarettes, uncomplicated; F20.9 Schizophrenia, unspecified; G47.00 Insomnia, unspecified; B18.2 Chronic viral hepatitis C; J45.20 Mild intermittent asthma, uncomplicated; Z21 Asymptomatic human immunodeficiency virus [HIV] infection status; Z87.42 Personal history of other diseases of the female genital tract
CPT/HCPCS: 36415; 71020-TC; 80053; 81003; 81015; 85027; 85660; 86593; 93005; 93010

== ENCOUNTER 2017-04-13 12:03 | Inpatient (IN) | payer OTHER ==
[2017-04-13 12:46] VITALS: BMI 24.1
--- NOTE | 2017-04-13 16:29 | HP ---
COWS - Scale Resting Pulse: 2= [place] 101-120 Sweatin= Chills/Flushing Restless Observation: 1= Difficult to Sit Still Pupil Size: 1= Pupils >than Normal Bone or Joint Aches: 1= Mild Discomfort Runny Nose/ Eye Tearin= Nasal Congestion GI Upset > 30mins: 2= Nausea/Diarrhea Tremor Observation: 2= Slight Tremor Visible Yawning Observation: 1= 1-2x During Session Anxiety or Irritability: 2=Irritable/Anxious Goose Flesh Skin: 3=Piloerection COWS Score: 17 CIWA Score - CIWA Score Nausea/Vomitin Muscle Tremors: 3 Anxiety: 3 Agitation: 3 Paroxysmal Sweats: 3 Orientation: 0-Oriented Tacttile Disturbances: 0-None Auditory Disturbances: 0-None Visual Disturbances: 0-None Headache: 0-None Present CIWA-Ar Total Score: 15 Admission ROS S - HPI Chief Complaint: alcohol, xanax and heorin withdrawl sx Allergies/Adverse Reactions: Allergies Allergy/AdvReac Type Severity Reaction Status Date / Time chicken derived Allergy Severe Itching Verified 04/13/17 16:01 Fish Containing Products Allergy Severe Itching Verified 04/13/17 16:01 No Known Drug Allergies Allergy Verified 01/01/17 12:28 History of Present Illness: 57 yo f with h/o heorin, xanax, and alcohol dependence admitted for inpatient detoxification because of withdrawawl sx when she does not use. no h/o sieuzres , DTs, suicide atemmpts. Has psychiatric history - schizophrenia - on depot medication. Exam Limitations: No Limitations - Ebola screening Have you traveled outside of the country in the last 21 days: No Have you had contact with anyone from an Ebola affected area: No Have you been sick,other than usual withdrawal symptoms: No Do you have a fever: No - Review of Systems Constitutional: Chills, Diaphoresis, Loss of Appetite, Malaise, Night Sweats, Unintentional Wgt. Loss EENT: reports: Nose Congestion Respiratory: reports: No Symptoms reported Cardiac: reports: No Symptoms Reported GI: reports: Diarrhea, Nausea, Poor Appetite, Poor Fluid Intake, Vomiting, Indigestion, Abdominal cramping : reports: No Symptoms Reported Musculoskeletal: reports: Back Pain, Joint Pain, Muscle Pain Integumentary: reports: Flushing, Sweating Neuro: reports: Headache, Numbness, Paresthesia, Tingling, Tremors, Weakness Endocrine: reports: Increased Thirst Hematology: reports: No Symptoms Reported Psychiatric: reports: Judgement Intact, Mood/Affect Appropiate, Orientated x3, Anxious, Depressed Other Systems: Reviewed and Negative Patient History - Patient Medical History Hx Anemia: No Hx Asthma: Yes (Pt is on MDI) Hx Chronic Obstructive Pulmonary Disease (COPD): No Hx Cancer: No Hx Cardiac Disorders: No Hx Congestive Heart Failure: No Hx Hypertension: No Hx Hypercholesterolemia: No Hx Pacemaker: No HX Cerebrovascular Accident: No Hx Seizures: No Hx Dementia: No Hx Diabetes: No Hx Gastrointestinal Disorders: No Hx Liver Disease: Yes (hep C) Hx Genitourinary Disorders: No Hx Sexually Transmitted Disorders: No Hx Renal Disease (ESRD): No Hx Thyroid Disease: No Hx Human Immunodeficiency Virus (HIV): Yes (on atripla ) Hx Hepatitis C: Yes Hx Depression: No Hx Suicide Attempt: No (no si at this time) Hx Bipolar Disorder: No Hx Schizophrenia: Yes (on depot medications) - Patient Surgical History Past Surgical History: Yes Hx Neurologic Surgery: No Hx Cataract Extraction: No Hx Cardiac Surgery: No Hx Lung Surgery: No Hx Breast Surgery: No Hx Breast Biopsy: No Hx Abdominal Surgery: No Hx Appendectomy: No Hx Cholecystectomy: No Hx Genitourinary Surgery: No Hx Section: No Hx Orthopedic Surgery: No Hx Hysterectomy: No Other Surgical History: Tubal ligation Anesthesia Reaction: No - PPD History Previous Implant?: Yes Documented Results: Positive w/proof Implanted On Prior R Admission?: No Results: CXR megative PPD to be Administered?: No - Reproductive History Patient is a Female of Child Bearing Age (11 -55 yrs old): No Last Menstrual Period: 05/27/94 Patient : No - Smoking Cessation Smoking history: Current every day smoker Have you smoked in the past 12 months: Yes Aproximately how many cigarettes per day: 20 Hx Chewing Tobacco Use: No Initiated information on smoking cessation: Yes 'Breaking Loose' booklet given: 04/13/17 - Substance & Tx. History Hx Alcohol Use: Yes Hx Substance Use: Yes Substance Use Type: Alcohol, Cocaine, Heroin, Marijuana, Opiates, Prescribed, Tranquilizers Hx Substance Use Treatment: Yes ([facility]) - Substances Abused Heroin Route: Injection Frequency: Daily Amount used: 6-7 bags Age of first use: 16 Date of Last Use: 04/13/17 Alprazolam (Xanax) Route: Oral Frequency: Daily Amount used: 6-8mg Age of first use: 20 Date of Last Use: 04/12/17 Crack Route: Smoking Frequency: Daily Amount used: 3-4 bags Age of first use: 20 Date of Last Use: 04/12/17 Alcohol Route: Oral Frequency: Daily Amount used: fifth of vodka Age of first use: 9 Date of Last Use: 04/13/17 Family Disease History - Family Disease History Family Disease History: Heart Disease: Mother, Respiratory: Sister (asharvind) Admission Physical Exam [facility] - Vital Signs Vital Signs: Vital Signs - 24 hr 04/13/17 12:43 Temperature 97.8 F Pulse Rate 105 H Respiratory 18 Rate Blood Pressure 102/68 - Physical General Appearance: Yes: Nourished, Appropriately Dressed, Disheveled, Mild Distress, Alcohol on Breath, Thin, Tremorous, Irritable, Sweating, Anxious HEENTM: Yes: EOMI, Hearing grossly Normal, Normocephalic, Normal Voice, FARTUN, Pharynx Normal, Nasal Congestion, Rhinorrhea Respiratory: Yes: Within Normal Limits, Chest Non-Tender, Lungs Clear, Normal Breath Sounds, No Respiratory Distress, No Accessory Muscle Use Neck: Yes: Within Normal Limits, No masses,lesions,Nodules, Supple, Trachea in good position Breast: Yes: Breast Exam Deferred Cardiology: Yes: Within Normal Limits, Regular Rhythm, Regular Rate, S1, S2 Abdominal: Yes: Normal Bowel Sounds, Non Tender, Flat, Soft, Increased Bowel Sounds Genitourinary: Yes: Within Normal Limits Back: Yes: Normal Inspection Musculoskeletal: Yes: full range of Motion, Gait Steady, Pelvis Stable, Back pain Extremities: Yes: Normal Capillary Refill, Normal Range of Motion, Non-Tender, Tremors Neurological: Yes: briquetter operator II-XII NML intact, Fully Oriented, Alert, Motor Strength 5/5, Normal Response, Depressed Affect Integumentary: Yes: Normal Color, Warm, Diaphoresis, Moist, Track Norris (new track norris no infection, no abscess noted) Lymphatic: Yes: Within Normal Limits - Addiitonal Findings: withdrawal sx - Diagnostic (1) Alcohol dependence with uncomplicated withdrawal Current Visit: No Status: Chronic (2) Cocaine dependence, uncomplicated Current Visit: No Status: Chronic (3) HIV (human immunodeficiency virus infection) Current Visit: No Status: Chronic (4) Hepatitis C Current Visit: No Status: Chronic Qualifiers: Viral hepatitis chronicity: chronic (5) Nicotine dependence Current Visit: No Status: Chronic Qualifiers: Nicotine product type: cigarettes Substance use status: uncomplicated Qualified Code(s): F17.210 - Nicotine dependence, cigarettes, uncomplicated (6) Opioid dependence with withdrawal Current Visit: No Status: Chronic (7) Schizophrenia Current Visit: No Status: Chronic (8) Sedative, hypnotic or anxiolytic dependence with withdrawal, uncomplicated Current Visit: No Status: Chronic Cleared for Admission S - Detox or Rehab [facility] Level of Care: Medically Managed Detox Regimen/Protocol: Methadone/Librium S Breath Alcohol Content Breath Alcohol Content: 0 Urine Pregancy Test - Result Urine Test Results: Negative- NO Line Present Urine Drug Screen - Results Drug Screen Negative: No Urine Drug Screen Results: ARANZA-Cocaine, OPI-Opiates, BZO-Benzodiazepines
[2017-04-13] MEDS ORDERED: MAG HYDROX/AL HYDROX/SIMETH 30 ML UNIT-DOSE CUP PO PRN (16:30)
[2017-04-13] MEDS ORDERED: P-EPHED 60MG/TRIPROLIDI 2.5MG TABLET PO PRN (16:30)
[2017-04-13] MEDS ORDERED: MAGNESIUM CITRATE 300 ML BOTTLE PO PRN (16:30)
[2017-04-13] MEDS ORDERED: ACETAMINOPHEN 325 MG TABLET (FP) PO PRN (16:30)
[2017-04-13] MEDS ORDERED: LOPERAMIDE HCL 2 MG CAPSULE PO PRN (16:30)
[2017-04-13] MEDS ORDERED: MAGNESIUM HYDROX 2400MG/30ML ORAL SUSPENSION 30 ML CUP PO PRN (16:30)
[2017-04-13] MEDS ORDERED: guaiFENesin/D-METHORPHAN HB 10 ML UNIT-DOSE CUPS PO PRN (16:30)
[2017-04-13] MEDS ORDERED: MENTHOL/PHENOL 1 EACH UD MM PRN (16:30)
[2017-04-13] MEDS ORDERED: chlordiazePOXIDE HCL 25 MG CAPSULE PO PRN (16:30)
[2017-04-13] MEDS ORDERED: ALBUTEROL SO4 18 GM HFA INHALER IH PRN (16:33)
[2017-04-13] MEDS ORDERED: PATIENT'S OWN MEDICATION (NON-FORMULARY) (Efavirenz/Emtricitab/Tenofovir 1 TAB) PO SCH (16:45)
[2017-04-13] MEDS ORDERED: chlordiazePOXIDE HCL 25 MG CAPSULE PO ONE (19:00)
[2017-04-13] MEDS ORDERED: EMTRICITABINE 200MG/TENOFOVIR 300MG PO ONE (19:00)
[2017-04-13] MEDS ORDERED: METHADONE HCL 10 MG TABLET (FOR DETOX USE ONLY) PO ONE ×2 (19:00→23:00)
[2017-04-13] MEDS ORDERED: EFAVIRENZ 600 MG TABLET PO ONE (19:00)
[2017-04-13] MEDS: NICOTINE 21 MG/24 HOURS TOPICAL PATCH TD SCH (19:25)
--- NOTE | 2017-04-13 20:51 | EKG ---
Test Reason : Blood Pressure : / mmHG Vent. Rate : 059 BPM Atrial Rate : 059 BPM P-R Int : 144 ms QRS Dur : 088 ms QT Int : 432 ms P-R-T Axes : 042 077 027 degrees QTc Int : 427 ms SINUS BRADYCARDIA NONSPECIFIC T WAVE ABNORMALITY ABNORMAL ECG WHEN COMPARED WITH ECG OF 01-JAN-2017 16:58, COMPARED TO EKG NO SIGNIFICANT CHANGE IS FOUND Confirmed by MD SAMM, SAM ([id number]) on 04/13/2017 8:51:25 PM Referred By: Confirmed By:SAM QUIJANO MD
[2017-04-13] MEDS: chlordiazePOXIDE HCL 25 MG CAPSULE PO SCH (22:15)
[2017-04-13] MEDS: THIAMINE HCL 100 MG TABLET (FP) PO SCH (22:15)
[2017-04-14 01:24] LABS: URINE APPEARANCE SLCLOUDY; URINE BILIRUBIN NEGATIVE (NEGATIVE); URINE BLOOD 1+ (NEGATIVE); URINE COLOR AMBER; URINE GLUCOSE (UA) NEGATIVE (NEGATIVE); URINE KETONE NEGATIVE (NEGATIVE); URINE NITRITE NEGATIVE (NEGATIVE); URINE PROTEIN NEGATIVE (NEGATIVE)
[2017-04-14 01:45] LABS: URINE LEUK ESTERASE 3+ (NEGATIVE)
[2017-04-14 01:53] LABS: URINE BACTERIA RARE /hpf (NONE SEEN); URINE HYALINE CAST 2 /lpf; URINE MUCUS MODERATE; URINE RBC 36 /hpf (0-3); URINE WBC 66 /hpf (3-5)
[2017-04-14] MEDS: chlordiazePOXIDE HCL 25 MG CAPSULE PO SCH ×4 (05:41→22:49)
--- NOTE | 2017-04-14 07:34 | CONSULT ---
[facility] Psychiatric Consult - Data Date of interview: 04/14/17 Admission source: [facility] Identifying data: This is 57 years old female with Schizophrenia history , intoxicated with: Alcohol, Cocaine, Xanax and Nicotine Substance Abuse History: - Smoking Cessation. Smoking history: Current every day smoker. Have you smoked in the past 12 months: Yes. Aproximately how many cigarettes per day: 20. Hx Chewing Tobacco Use: No. Initiated information on smoking cessation: Yes. 'Breaking Loose' booklet given: 04/13/17. - Substance & Tx. History. Hx Alcohol Use: Yes. Hx Substance Use: Yes. Substance Use Type : Alcohol, Cocaine, Heroin, Marijuana, Opiates, Prescribed, Tranquilizers. Hx Substance Use Treatment: Yes ([facility] - Substances Abused. Heroin. Route: Injection. Frequency: Daily. Amount used: 6-7 bags. Age of first use: 16. Date of Last Use: 04/13/17. Alprazolam (Xanax). Route: Oral. Frequency: Daily. Amount used: 6-8mg. Age of first use: 20. Date of Last Use : 04/12/17. Crack. Route: Smoking. Frequency: Daily. Amount used: 3-4 bags. Age of first use: 20. Date of Last Use: 04/12/17. Alcohol. Route: Oral. Frequency: Daily. Amount used: fifth of vodka. Age of first use: 9. Date of Last Use: 04/13/17 Medical History: HIV+, HepC+ Psychiatric History: Patient reports history of Paranoid Schizophrenia with nost recent psychoiatric admission at [facility] due to auditory hallucinations, currently stable on Haldol Decanoate 50mg IM per month with last injection on 04/13/17 Physical/Sexual Abuse/Trauma History: Denies Additional Comment: Haldol Decanoate 50mg IM per month with last injection on 04/13/17 Mental Status Exam - Mental Status Exam Alert and Oriented to: Person Cognitive Function: Fair Patient Appearance: Unkempt Mood: Anxious Affect: Constricted Patient Behavior: Cooperative Speech Pattern: Appropriate Voice Loudness: Normal Thought Process: Goal Oriented Thought Disorder: Being Controlled Hallucinations: Denies Suicidal Ideation: Denies Homicidal Ideation: Denies Insight/Judgement: Fair Sleep: Difficulty falling asleep Appetite: Weight loss Muscle strength/Tone: Normal Gait/Station: Normal Additional Comments: Haldol Decanoate 50mg IM per month with last injection on 04/13/17 Psychiatric Findings - Problem List (Toney 1, 2,3) (1) Alcohol dependence with uncomplicated withdrawal Current Visit: No Status: Chronic (2) Cocaine dependence, uncomplicated Current Visit: No Status: Chronic (3) Nicotine dependence Current Visit: No Status: Chronic Qualifiers: Nicotine product type: cigarettes Substance use status: uncomplicated Qualified Code(s): F17.210 - Nicotine dependence, cigarettes, uncomplicated (4) Opioid dependence with withdrawal Current Visit: No Status: Chronic (5) Schizophrenia Current Visit: No Status: Chronic (6) Sedative hypnotic or anxiolytic dependence Current Visit: No Status: Chronic - Initial Treatment Plan Initial Treatment Plan: Haldol Decanoate 50mg IM per month with last injection on 04/13/17
[2017-04-14 10:06] LABS: MCHC 33.7 g/dl (32.0-36.0); MEAN PLT VOLUME 7.8 fl (7.5-11.1); PLATELET COUNT 282 K/MM3 (134-434); RDW 14.8 % (11.6-15.6); WHITE BLOOD COUNT 3.8 K/mm3 (4.0-10.0)
[2017-04-14] MEDS: PRENATAL VITAMINS W/ FOLIC ACID TABLET (FP) PO SCH (10:16)
[2017-04-14] MEDS: METHADONE HCL 10 MG TABLET (FOR DETOX USE ONLY) PO SCH ×2 (10:16→10:19)
[2017-04-14] MEDS: EFAVIRENZ 600 MG TABLET PO SCH (10:17)
[2017-04-14] MEDS: EMTRICITABINE 200MG/TENOFOVIR 300MG PO SCH (10:17)
[2017-04-14] MEDS: NICOTINE 21 MG/24 HOURS TOPICAL PATCH TD SCH (10:17)
[2017-04-14 10:21] LABS: URINE LEUK ESTERASE 2+ (NEGATIVE)
[2017-04-14 10:28] LABS: ALK PHOS 92 U/L (45-117); ANION GAP 10 (8-16); BILIRUBIN,TOTAL 0.3 mg/dL (0.2-1.0); CALCIUM 8.5 mg/dL (8.5-10.1); CO2 19 mmol/L (21-32); CREATININE 0.8 mg/dL (0.55-1.02); GLUCOSE,RANDOM 85 mg/dL (74-106); SGOT/AST 25 U/L (15-37); SGPT/ALT 50 U/L (12-78); TOT PROT 7.8 g/dl (6.4-8.2)
--- NOTE | 2017-04-14 10:29 | PN ---
S CIWA - CIWA Score Nausea/Vomitin Muscle Tremors: 2 Anxiety: 2 Agitation: 2 Paroxysmal Sweats: 3 Orientation: 0-Oriented Tacttile Disturbances: 2-Mild Itch/Numbness/Burn Auditory Disturbances: 0-None Visual Disturbances: 0-None Headache: 0-None Present CIWA-Ar Total Score: 13 BHS COWS - Scale Resting Pulse: 0= [place] 80 or Below Sweatin= Chills/Flushing Restless Observation: 1= Difficult to Sit Still Pupil Size: 1= Pupils >than Normal Bone or Joint Aches: 1= Mild Discomfort Runny Nose/ Eye Tearin= Nasal Congestion GI Upset > 30mins: 1= Stomach Cramp Tremor Observation of Outstretched Hands: 1= Tremor [place], Not Seen Yawning Observation: 0= None Anxiety or Irritability: 1=Feels Anxious/Irritable Goose Flesh Skin: 0=Smooth Skin COWS Score: 8 BHS Progress Note (SOAP) Subjective: interrupted sleep, sweats, Objective: 04/14/17 10:26 Vital Signs Temperature 98.1 F 04/14/17 06:06 Pulse Rate 66 04/14/17 06:06 Respiratory Rate 16 04/14/17 06:06 Blood Pressure 116/67 04/14/17 06:06 O2 Sat by Pulse Oximetry (%) Laboratory Tests 04/13/17 04/14/17 23:37 07:00 WBC 3.8 L RBC 3.63 Hgb 12.0 Hct 35.6 MCV 98.0 H MCH 33.0 MCHC 33.7 RDW 14.8 D Plt Count 282 D MPV 7.8 D Urine Color Elvira Urine Appearance Slcloudy Urine pH 5.0 Ur Specific [place] 1.018 Urine Protein Negative Urine Glucose (UA) Negative Urine Ketones Negative Urine Blood 1+ H Urine Nitrite Negative Urine Bilirubin Negative Urine Urobilinogen 2.0 H Ur Leukocyte Esterase 2+ H Urine WBC (Auto) 66 Urine RBC (Auto) 36 Ur Epithelial Cells Rare Urine Bacteria Rare Hyaline Casts 2 Urine Mucus Moderate pt aox3 in nad ambulating Assessment: 04/14/17 10:27 withdrawal sx's abn. u/a Plan: cont. detox increase fluids repeat u/a, cx
[2017-04-14] MEDS: IBUPROFEN 400 MG TABLET (FP) PO PRN (14:01)
[2017-04-14] MEDS: THIAMINE HCL 100 MG TABLET (FP) PO SCH (22:21)
[2017-04-15] MEDS: chlordiazePOXIDE HCL 25 MG CAPSULE PO SCH ×3 (05:15→17:26)
[2017-04-15] MEDS: IBUPROFEN 400 MG TABLET (FP) PO PRN (08:37)
[2017-04-15] MEDS: METHADONE HCL 5 MG TABLET (FOR DETOX USE ONLY) PO SCH (10:14)
[2017-04-15] MEDS: PRENATAL VITAMINS W/ FOLIC ACID TABLET (FP) PO SCH (10:14)
[2017-04-15] MEDS: EFAVIRENZ 600 MG TABLET PO SCH (10:15)
[2017-04-15] MEDS: NICOTINE 21 MG/24 HOURS TOPICAL PATCH TD SCH (10:15)
[2017-04-15] MEDS: EMTRICITABINE 200MG/TENOFOVIR 300MG PO SCH (10:15)
--- NOTE | 2017-04-15 10:52 | PN ---
S CIWA - CIWA Score Nausea/Vomitin Muscle Tremors: 3 Anxiety: 3 Agitation: 3 Paroxysmal Sweats: 3 Orientation: 0-Oriented Tacttile Disturbances: 0-None Auditory Disturbances: 0-None Visual Disturbances: 0-None Headache: 0-None Present CIWA-Ar Total Score: 15 BHS COWS - Scale Resting Pulse: 0= [place] 80 or Below Sweatin= Chills/Flushing Restless Observation: 1= Difficult to Sit Still Pupil Size: 1= Pupils >than Normal Bone or Joint Aches: 1= Mild Discomfort Runny Nose/ Eye Tearin= Nasal Congestion GI Upset > 30mins: 2= Nausea/Diarrhea Tremor Observation of Outstretched Hands: 2= Slight Tremor Visible Yawning Observation: 1= 1-2x During Session Anxiety or Irritability: 2=Irritable/Anxious Goose Flesh Skin: 3=Piloerection COWS Score: 15 S Progress Note (SOAP) Subjective: nasuea, sweats, interrupted sleep, anxiety, tremors Objective: 04/15/17 10:51 Vital Signs - 24 hr 04/14/17 04/14/17 04/14/17 11:04 13:07 16:51 Temperature 97.9 F 98.2 F 97.2 F L Pulse Rate 75 78 74 Respiratory 16 16 18 Rate Blood Pressure 97/57 112/65 93/56 04/14/17 04/14/17 04/15/17 22:04 22:44 00:30 Temperature 98.2 F Pulse Rate 69 Respiratory 16 18 Rate Blood Pressure 87/60 112/71 04/15/17 04/15/17 04/15/17 03:30 06:19 09:22 Temperature 97.5 F L 97.7 F Pulse Rate 71 78 Respiratory 18 18 18 Rate Blood Pressure 101/50 106/63 Laboratory Tests 04/13/17 04/14/17 04/14/17 23:37 07:00 07:00 WBC 3.8 L RBC 3.63 Hgb 12.0 Hct 35.6 MCV 98.0 H MCH 33.0 MCHC 33.7 RDW 14.8 D Plt Count 282 D MPV 7.8 D Sodium 139 Potassium 3.7 Chloride 110 H Carbon Dioxide 19 L Anion Gap 10 BUN 16 Creatinine 0.8 Creat Clearance w eGFR > 60 Random Glucose 85 Calcium 8.5 Total Bilirubin 0.3 D AST 25 ALT 50 D Alkaline Phosphatase 92 Total Protein 7.8 Albumin 3.0 L Urine Color Elvira Urine Appearance Slcloudy Urine pH 5.0 Ur Specific [place] 1.018 Urine Protein Negative Urine Glucose (UA) Negative Urine Ketones Negative Urine Blood 1+ H Urine Nitrite Negative Urine Bilirubin Negative Urine Urobilinogen 2.0 H Ur Leukocyte Esterase 2+ H Urine WBC (Auto) 66 Urine RBC (Auto) 36 Ur Epithelial Cells Rare Urine Bacteria Rare Hyaline Casts 2 Urine Mucus Moderate RPR Titer 04/14/17 07:00 WBC RBC Hgb Hct MCV MCH MCHC RDW Plt Count MPV Sodium Potassium Chloride Carbon Dioxide Anion Gap BUN Creatinine Creat Clearance w eGFR Random Glucose Calcium Total Bilirubin AST ALT Alkaline Phosphatase Total Protein Albumin Urine Color Urine Appearance Urine pH Ur Specific [place] Urine Protein Urine Glucose (UA) Urine Ketones Urine Blood Urine Nitrite Urine Bilirubin Urine Urobilinogen Ur Leukocyte Esterase Urine WBC (Auto) Urine RBC (Auto) Ur Epithelial Cells Urine Bacteria Hyaline Casts Urine Mucus RPR Titer Nonreactive Assessment: 04/15/17 10:52 withdrawal sx - cont detox, fluids, encourage ambualtion
[2017-04-15 21:48] LABS: URINE APPEARANCE CLOUDY; URINE BILIRUBIN NEGATIVE (NEGATIVE); URINE BLOOD NEGATIVE (NEGATIVE); URINE COLOR YELLOW; URINE GLUCOSE (UA) NEGATIVE (NEGATIVE); URINE KETONE NEGATIVE (NEGATIVE); URINE NITRITE NEGATIVE (NEGATIVE); URINE PROTEIN NEGATIVE (NEGATIVE); URINE UROBILINOGEN NEGATIVE mg/dL (0.2-1.0)
[2017-04-15 21:51] LABS: URINE LEUK ESTERASE 3+ (NEGATIVE)
[2017-04-15 21:56] LABS: URINE BACTERIA RARE /hpf (NONE SEEN); URINE MUCUS RARE; URINE RBC 2 /hpf (0-3); URINE WBC 4 /hpf (3-5)
[2017-04-15] MEDS: chlordiazePOXIDE 5 MG CAPSULE PO SCH (22:21)
[2017-04-15] MEDS: THIAMINE HCL 100 MG TABLET (FP) PO SCH (22:21)
[2017-04-15 23:28] LABS: URINE LEUK ESTERASE 2+ (NEGATIVE)
[2017-04-16] MEDS: IBUPROFEN 400 MG TABLET (FP) PO PRN (00:35)
[2017-04-16] MEDS: chlordiazePOXIDE 5 MG CAPSULE PO SCH ×3 (05:13→17:24)
[2017-04-16] MEDS: EFAVIRENZ 600 MG TABLET PO SCH (10:14)
[2017-04-16] MEDS: METHADONE HCL 5 MG TABLET (FOR DETOX USE ONLY) PO SCH (10:14)
[2017-04-16] MEDS: PRENATAL VITAMINS W/ FOLIC ACID TABLET (FP) PO SCH (10:14)
[2017-04-16] MEDS: EMTRICITABINE 200MG/TENOFOVIR 300MG PO SCH (10:15)
[2017-04-16] MEDS: NICOTINE 21 MG/24 HOURS TOPICAL PATCH TD SCH (10:15)
--- NOTE | 2017-04-16 10:55 | PN ---
BHS Progress Note (SOAP) Subjective: agitation sweats interrupted sleep body aches Objective: 04/16/17 10:54 Vital Signs Temperature 96.3 F L 04/16/17 10:02 Pulse Rate 77 04/16/17 10:02 Respiratory Rate 18 04/16/17 10:02 Blood Pressure 106/67 04/16/17 10:02 O2 Sat by Pulse Oximetry (%) [id number] ambulating no acute distress Assessment: 04/16/17 10:55 withdrawal sx Plan: continue detox increase fluids
[2017-04-16] MEDS: NICOTINE POLACRILEX 4 MG GUM BC PRN (11:07)
[2017-04-16] MEDS: chlordiazePOXIDE HCL 10 MG CAPSULE PO SCH (22:28)
[2017-04-16] MEDS: THIAMINE HCL 100 MG TABLET (FP) PO SCH (22:29)
[2017-04-17] MEDS: chlordiazePOXIDE HCL 10 MG CAPSULE PO SCH ×3 (05:59→17:26)
[2017-04-17] MEDS: IBUPROFEN 400 MG TABLET (FP) PO PRN (08:39)
[2017-04-17] MEDS ORDERED: METHADONE HCL 10 MG TABLET (FOR DETOX USE ONLY) PO SCH (10:00)
[2017-04-17] MEDS: NICOTINE 21 MG/24 HOURS TOPICAL PATCH TD SCH (10:23)
[2017-04-17] MEDS: PRENATAL VITAMINS W/ FOLIC ACID TABLET (FP) PO SCH (10:23)
[2017-04-17] MEDS: EFAVIRENZ 600 MG TABLET PO SCH (10:23)
[2017-04-17] MEDS: EMTRICITABINE 200MG/TENOFOVIR 300MG PO SCH (10:23)
[2017-04-17] MEDS: hydrOXYzine PAMOATE 50 MG CAPSULE (FP) PO PRN ×2 (14:36→22:29)
--- NOTE | 2017-04-17 15:48 | PN ---
BHS Progress Note (SOAP) Subjective: Sweating,interrupted sleep,restless Objective: 04/17/17 15:44 Vital Signs - 8 hr 04/17/17 15:28 Temperature 98.1 F Pulse Rate 77 Respiratory 18 Rate Blood Pressure 107/67 Laboratory Tests 04/13/17 04/14/17 04/14/17 23:37 07:00 07:00 WBC 3.8 L RBC 3.63 Hgb 12.0 Hct 35.6 MCV 98.0 H MCH 33.0 MCHC 33.7 RDW 14.8 D Plt Count 282 D MPV 7.8 D Sodium 139 Potassium 3.7 Chloride 110 H Carbon Dioxide 19 L Anion Gap 10 BUN 16 Creatinine 0.8 Creat Clearance w eGFR > 60 Random Glucose 85 Calcium 8.5 Total Bilirubin 0.3 D AST 25 ALT 50 D Alkaline Phosphatase 92 Total Protein 7.8 Albumin 3.0 L Urine Color Elvira Urine Appearance Slcloudy Urine pH 5.0 Ur Specific [place] 1.018 Urine Protein Negative Urine Glucose (UA) Negative Urine Ketones Negative Urine Blood 1+ H Urine Nitrite Negative Urine Bilirubin Negative Urine Urobilinogen 2.0 H Ur Leukocyte Esterase 2+ H Urine WBC (Auto) 66 Urine RBC (Auto) 36 Ur Epithelial Cells Rare Urine Bacteria Rare Hyaline Casts 2 Urine Mucus Moderate RPR Titer 04/14/17 04/15/17 07:00 17:00 WBC RBC Hgb Hct MCV MCH MCHC RDW Plt Count MPV Sodium Potassium Chloride Carbon Dioxide Anion Gap BUN Creatinine Creat Clearance w eGFR Random Glucose Calcium Total Bilirubin AST ALT Alkaline Phosphatase Total Protein Albumin Urine Color Yellow Urine Appearance Cloudy Urine pH 5.0 Ur Specific [place] 1.016 Urine Protein Negative Urine Glucose (UA) Negative Urine Ketones Negative Urine Blood Negative Urine Nitrite Negative Urine Bilirubin Negative Urine Urobilinogen Negative Ur Leukocyte Esterase 2+ H Urine WBC (Auto) 4 Urine RBC (Auto) 2 Ur Epithelial Cells Few Urine Bacteria Rare Hyaline Casts Urine Mucus Rare RPR Titer Nonreactive Repeat U/A is grossly normal, Nitrite is negative in both samples. No further w/ u needed Assessment: 04/17/17 15:46 Withdrawal sx. Plan: Continue detox
[2017-04-17] MEDS: THIAMINE HCL 100 MG TABLET (FP) PO SCH (22:29)
[2017-04-18] MEDS: NICOTINE POLACRILEX 4 MG GUM BC PRN (05:35)
[2017-04-18] MEDS ORDERED: METHADONE HCL 5 MG TABLET (FOR DETOX USE ONLY) PO SCH (06:00)
[2017-04-18 06:53] VITALS: BP 93/65; PULSE 76; TEMP 96.4
--- NOTE | 2017-04-18 09:00 | DS ---
[facility] Detox Discharge Summary Admission Date: 04/13/17 Discharge Date: 04/18/17 - History Present History: Alcohol Dependence, Cocaine Dependence, Opioid Dependence Pertinent Past History: HIV Hep C Asthma - Physical Exam Results Vital Signs: Vital Signs Temperature 96.4 F L 04/18/17 06:53 Pulse Rate 76 04/18/17 06:53 Respiratory Rate 18 04/18/17 06:53 Blood Pressure 93/65 04/18/17 06:53 O2 Sat by Pulse Oximetry (%) Pertinent Admission Physical Exam Findings: Withdrawal sx. Laboratory Tests 04/13/17 04/14/17 04/14/17 23:37 07:00 07:00 WBC 3.8 L RBC 3.63 Hgb 12.0 Hct 35.6 MCV 98.0 H MCH 33.0 MCHC 33.7 RDW 14.8 D Plt Count 282 D MPV 7.8 D Sodium 139 Potassium 3.7 Chloride 110 H Carbon Dioxide 19 L Anion Gap 10 BUN 16 Creatinine 0.8 Creat Clearance w eGFR > 60 Random Glucose 85 Calcium 8.5 Total Bilirubin 0.3 D AST 25 ALT 50 D Alkaline Phosphatase 92 Total Protein 7.8 Albumin 3.0 L Urine Color Elvira Urine Appearance Slcloudy Urine pH 5.0 Ur Specific [place] 1.018 Urine Protein Negative Urine Glucose (UA) Negative Urine Ketones Negative Urine Blood 1+ H Urine Nitrite Negative Urine Bilirubin Negative Urine Urobilinogen 2.0 H Ur Leukocyte Esterase 2+ H Urine WBC (Auto) 66 Urine RBC (Auto) 36 Ur Epithelial Cells Rare Urine Bacteria Rare Hyaline Casts 2 Urine Mucus Moderate RPR Titer 04/14/17 04/15/17 07:00 17:00 WBC RBC Hgb Hct MCV MCH MCHC RDW Plt Count MPV Sodium Potassium Chloride Carbon Dioxide Anion Gap BUN Creatinine Creat Clearance w eGFR Random Glucose Calcium Total Bilirubin AST ALT Alkaline Phosphatase Total Protein Albumin Urine Color Yellow Urine Appearance Cloudy Urine pH 5.0 Ur Specific [place] 1.016 Urine Protein Negative Urine Glucose (UA) Negative Urine Ketones Negative Urine Blood Negative Urine Nitrite Negative Urine Bilirubin Negative Urine Urobilinogen Negative Ur Leukocyte Esterase 2+ H Urine WBC (Auto) 4 Urine RBC (Auto) 2 Ur Epithelial Cells Few Urine Bacteria Rare Hyaline Casts Urine Mucus Rare RPR Titer Nonreactive labs noted, U/A is negative for nitrite, no infection - Treatment Hospital Course: Detox Protocol Followed, Detoxed Safely, Responded well, Discharged Condition Good, Rehab Referral Accepted Patient has Accepted a Rehab Referral to: [facility] - Medication Discharge Medications: Ambulatory Orders Efavirenz/Emtricitab/Tenofovir [Atripla -] 1 tab PO DAILY 09/29/15 Albuterol Sulfate Inhaler - [Ventolin HFA Inhaler -] 2 puff IH Q4H PRN 10/03/15 Haloperidol Decanoate [Haldol Decanoate 100] 50 mg IM ASDIR 04/13/17 - Diagnosis (1) Alcohol dependence with uncomplicated withdrawal Current Visit: Yes Status: Chronic (2) Opioid dependence with withdrawal Current Visit: Yes Status: Chronic (3) Cocaine dependence, uncomplicated Current Visit: Yes Status: Chronic (4) HIV (human immunodeficiency virus infection) Current Visit: Yes Status: Chronic (5) Hepatitis C Current Visit: No Status: Chronic Qualifiers: Viral hepatitis chronicity: chronic (6) Sedative, hypnotic or anxiolytic dependence with withdrawal, uncomplicated Current Visit: Yes Status: Chronic (7) Schizophrenia Current Visit: No Status: Chronic - AMA Did Patient Leave Against Medical Advice: No
[2017-04-18] MEDS: hydrOXYzine PAMOATE 50 MG CAPSULE (FP) PO PRN (09:19)
[2017-04-18] MEDS: PRENATAL VITAMINS W/ FOLIC ACID TABLET (FP) PO SCH (10:11)
[2017-04-18] MEDS: EFAVIRENZ 600 MG TABLET PO SCH (10:11)
[2017-04-18] MEDS: EMTRICITABINE 200MG/TENOFOVIR 300MG PO SCH (10:11)
[2017-04-18] MEDS: NICOTINE 21 MG/24 HOURS TOPICAL PATCH TD SCH (10:11)
== END 2017-04-18 10:26 | disposition other institution (70) | DRG 773 ==
LOC: YASAS 12:03 → Y6N 18:25
PROVIDERS: ADMIT Internal Medicine; ATTEND Internal Medicine
PROC: HZ2ZZZZ Detoxification Services for Substance Abuse Treatment (ICD-10-PCS; principal; 2017-04-13)
DX: F11.23 Opioid dependence with withdrawal (principal); F10.230 Alcohol dependence with withdrawal, uncomplicated; F13.230 Sedative, hypnotic or anxiolytic dependence with withdrawal, uncomplicated; F14.20 Cocaine dependence, uncomplicated; F17.210 Nicotine dependence, cigarettes, uncomplicated; F20.9 Schizophrenia, unspecified; Z21 Asymptomatic human immunodeficiency virus [HIV] infection status; B18.2 Chronic viral hepatitis C; J45.909 Unspecified asthma, uncomplicated; R82.90 Unspecified abnormal findings in urine; Z91.013 Allergy to seafood; Z91.018 Allergy to other foods
CPT/HCPCS: 36415; 80053; 81003; 81015; 85027; 86593; 87086; 93005; 93010

== ENCOUNTER 2017-04-18 11:33 | Inpatient (IN) | payer OTHER ==
[2017-04-18] MEDS ORDERED: MAG HYDROX/AL HYDROX/SIMETH 30 ML UNIT-DOSE CUP PO PRN (12:13)
[2017-04-18] MEDS ORDERED: ACETAMINOPHEN 325 MG TABLET (FP) PO PRN (12:13)
[2017-04-18] MEDS ORDERED: P-EPHED 60MG/TRIPROLIDI 2.5MG TABLET PO PRN (12:13)
[2017-04-18] MEDS ORDERED: LOPERAMIDE HCL 2 MG CAPSULE PO PRN (12:13)
[2017-04-18] MEDS ORDERED: MENTHOL/PHENOL 1 EACH UD MM PRN (12:13)
[2017-04-18] MEDS ORDERED: guaiFENesin/D-METHORPHAN HB 10 ML UNIT-DOSE CUPS PO PRN (12:13)
[2017-04-18] MEDS ORDERED: NICOTINE POLACRILEX 4 MG GUM BUC PRN (12:13)
[2017-04-18] MEDS ORDERED: MAGNESIUM HYDROX 2400MG/30ML ORAL SUSPENSION 30 ML CUP PO PRN (12:13)
[2017-04-18] MEDS ORDERED: MAGNESIUM CITRATE 300 ML BOTTLE PO PRN (12:13)
[2017-04-18] MEDS ORDERED: IBUPROFEN 400 MG TABLET (FP) PO PRN (12:13)
[2017-04-18] MEDS ORDERED: ALBUTEROL SO4 18 GM HFA INHALER IH PRN (12:14)
--- NOTE | 2017-04-18 12:20 | HP ---
[facility] Rehab Assess/Revision - Admission History Admitted to Rehab from: [facility] Date of Admission to Rehab: 04/18/17 - Vital signs Vital Signs: Vital Signs Period Temp Pulse Resp BP Sys/Franco Pulse Ox Last 24 Hr 97.9 F 79 18 102/73 - Findings Detox History & Physical reviewed: Yes Concur with findings: Yes Inpatient Rehab Admission - Initial Determination Are CD services needed?: Yes Free of communicable disease: Yes Not in need of hospitalization: Yes - Rehab Admission Criteria Previous failed treatment: Yes Poor recovery environment: Yes Comorbidities: Yes Lacks judgement: Yes Patient is meeting Inpatient Rehab admission criteria:: Yes
[2017-04-18] MEDS: hydrOXYzine PAMOATE 50 MG CAPSULE (FP) PO PRN ×2 (13:59→21:24)
[2017-04-18] MEDS ORDERED: diphenhydrAMINE HCL 25 MG CAPSULE (FP) PO PRN (16:07)
[2017-04-18] MEDS: THIAMINE HCL 100 MG TABLET (FP) PO SCH (21:23)
[2017-04-19] MEDS: hydrOXYzine PAMOATE 50 MG CAPSULE (FP) PO PRN ×4 (06:38→19:29)
[2017-04-19] MEDS ORDERED: PT OWN MED DRAWER 7, Y5N ONE (08:25)
[2017-04-19] MEDS: PRENATAL VITAMINS W/ FOLIC ACID TABLET (FP) PO SCH (09:37)
[2017-04-19] MEDS: EFAVIRENZ 600 MG TABLET PO SCH (09:37)
[2017-04-19] MEDS: NICOTINE 21 MG/24 HOURS TOPICAL PATCH TD SCH (09:38)
[2017-04-19] MEDS: EMTRICITABINE 200MG/TENOFOVIR 300MG PO SCH (09:47)
[2017-04-19] MEDS: THIAMINE HCL 100 MG TABLET (FP) PO SCH (21:08)
[2017-04-20 06:39] VITALS: TEMP 98
[2017-04-20] MEDS: hydrOXYzine PAMOATE 50 MG CAPSULE (FP) PO PRN ×3 (07:02→15:45)
[2017-04-20] MEDS: PRENATAL VITAMINS W/ FOLIC ACID TABLET (FP) PO SCH (09:27)
[2017-04-20] MEDS: EMTRICITABINE 200MG/TENOFOVIR 300MG PO SCH (09:27)
[2017-04-20] MEDS: EFAVIRENZ 600 MG TABLET PO SCH (09:27)
[2017-04-20] MEDS: NICOTINE 21 MG/24 HOURS TOPICAL PATCH TD SCH (09:27)
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
[2017-04-20] MEDS ORDERED: BENZTROPINE MESYLATE 1 MG TABLET (FP) PO SCH (11:45)
[2017-04-20] MEDS ORDERED: cloNIDine HCL 0.1 MG TABLET PO ONE (15:40)
[2017-04-20 15:44] VITALS: BP 114/78; PULSE 94
[2017-04-20] MEDS ORDERED: GABAPENTIN 100 MG CAPSULE (FP) PO SCH (22:00)
[2017-04-20] MEDS ORDERED: CYCLOBENZAPRINE HCL 10 MG TABLET (FP) PO SCH (22:00)
[2017-04-20] MEDS ORDERED: cloNIDine HCL 0.1 MG TABLET PO SCH (22:00)
[2017-04-20] MEDS ORDERED: SUVOREXANT 10 MG TABLET PO PRN (22:00)
--- NOTE | 2017-04-20 23:56 | PN ---
JOSE ALEJANDRO Progress Note Note: received nurse call that the patient wants to leave the facility encourage to inform attending physician on 3E or director of instruction psychiatrist
== END 2017-04-20 17:05 | disposition left against medical advice (07) | DRG 770 ==
LOC: YASAS 11:33 → Y3E 11:36
PROVIDERS: ADMIT Psychiatry & Neurology Psychiatry; ATTEND Psychiatry & Neurology Psychiatry
PROC: HZ42ZZZ Group Counseling for Substance Abuse Treatment, Cognitive-Behavioral (ICD-10-PCS; principal; 2017-04-18)
DX: F11.20 Opioid dependence, uncomplicated (principal); F10.20 Alcohol dependence, uncomplicated; F13.20 Sedative, hypnotic or anxiolytic dependence, uncomplicated; F14.20 Cocaine dependence, uncomplicated; F17.210 Nicotine dependence, cigarettes, uncomplicated; F20.9 Schizophrenia, unspecified; F19.282 Other psychoactive substance dependence with psychoactive substance-induced sleep disorder; F19.280 Other psychoactive substance dependence with psychoactive substance-induced anxiety disorder; Z21 Asymptomatic human immunodeficiency virus [HIV] infection status; B18.2 Chronic viral hepatitis C; J45.909 Unspecified asthma, uncomplicated

== ENCOUNTER 2017-08-03 10:41 | Inpatient (IN) | payer OTHER ==
[2017-08-03 12:13] VITALS: BMI 24.8
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
[2017-08-03] MEDS ORDERED: IBUPROFEN 400 MG TABLET (FP) PO PRN (13:45)
[2017-08-03] MEDS ORDERED: ACETAMINOPHEN 325 MG TABLET (FP) PO PRN (13:45)
[2017-08-03] MEDS ORDERED: MAGNESIUM CITRATE 300 ML BOTTLE PO PRN (13:45)
[2017-08-03] MEDS ORDERED: MAGNESIUM HYDROX 2400MG/30ML ORAL SUSPENSION 30 ML CUP PO PRN (13:45)
[2017-08-03] MEDS ORDERED: LOPERAMIDE HCL 2 MG CAPSULE PO PRN (13:45)
[2017-08-03] MEDS ORDERED: P-EPHED 60MG/TRIPROLIDI 2.5MG TABLET PO PRN (13:45)
[2017-08-03] MEDS ORDERED: MENTHOL/PHENOL 1 EACH UD MM PRN (13:45)
[2017-08-03] MEDS ORDERED: guaiFENesin/D-METHORPHAN HB 10 ML UNIT-DOSE CUPS PO PRN (13:45)
[2017-08-03] MEDS ORDERED: MAG HYDROX/AL HYDROX/SIMETH 30 ML UNIT-DOSE CUP PO PRN (13:45)
[2017-08-03] MEDS ORDERED: ALBUTEROL SO4 18 GM HFA INHALER IH PRN (13:48)
[2017-08-03] MEDS ORDERED: METHADONE HCL 10 MG TABLET (FOR DETOX USE ONLY) PO ONE ×2 (13:50→23:00)
[2017-08-03] MEDS ORDERED: diazePAM 5 MG TABLET PO ONE (13:50)
[2017-08-03] MEDS ORDERED: diphenhydrAMINE HCL 25 MG CAPSULE (FP) PO ONE (14:00)
[2017-08-03] MEDS: diazePAM 5 MG TABLET PO SCH ×2 (15:17→22:16)
[2017-08-03] MEDS: AMMONIUM LACTATE 12% LOTION 225 GM BOTTLE TP SCH ×2 (16:07→22:15)
[2017-08-03 16:46] LABS: HEMATOCRIT 40.7 % (32.4-45.2); MCH 34.3 pg (25.7-33.7); MCHC 34.4 g/dl (32.0-36.0); MEAN CELL VOLUME 99.7 fl (80-96); MEAN PLT VOLUME 9.8 fl (7.5-11.1); PLATELET COUNT 209 K/MM3 (134-434); RBC 4.09 M/mm3 (3.60-5.2); RDW 13.5 % (11.6-15.6); WHITE BLOOD COUNT 3.3 K/mm3 (4.0-10.0)
--- NOTE | 2017-08-03 16:53 | CONSULT ---
[facility] Psychiatric Consult - Data Date of interview: 08/03/17 Admission source: [facility] Identifying data: Pt. is a 57 year old single female, mother of three, unemployed, living in an apartment, and supported by public assistance. This is one of multiple admissions for patient. Pt. admitted to detox for alcohol, cocaine and opiate dependence. Substance Abuse History: Following information confirmed with Mr. Gonzalez: Substance & Tx. History. Hx Alcohol Use: Yes. Hx Substance Use: Yes. Substance Use Type: Alcohol, Cocaine, Heroin, Tranquilizers. Hx Substance Use Treatment: Yes (Previous Detox/Rehab admissions at [facility] (Last: 03/2017).). - Substances Abused. Heroin. Route: Inhalation. Frequency: Daily. Amount used: 8 bags. Age of first use: 20. Date of Last Use: 08/02/17. Crack. Route: Smoking. Frequency: Daily. Amount used: $80-90. Age of first use: 20. Date of Last Use: 08/02/17. Alcohol-vodka/beer. Route: Oral. Frequency: Daily. Amount used: fifth/2 (16 oz.). Age of first use: 9. Date of Last Use: 08/02/17. Xanax. Route: Oral. Frequency: 3-6 times per week. Amount used : 4-6 mg. Age of first use: 47. Date of Last Use: 08/01/17 Medical History: Asthma, Hep C, Tubal ligation, approx. 20 years ago Psychiatric History: Pt. reports multiple psychiatric hospitalizations, most recently at [facility] approximately 4 months ago for auditory hallucinations. Pt. has also been hospitalized at [facility]. Outpatient care is provided by the [facility] clinic. Pt. has a diagnosis of Schizophrenia and receives the haldol deconate injection monthly. As per patient, most recent haldol injection was received last month and states she will not be receiving the haldol injection while in this facility. Pt. also refusing to accept PO haldol. No psychosis noted. Pt. denies h/o suicide attempt. As per past entries patient has had several suicide attempts in the past. Pt. currently denies suicidal and homicidal ideation. Physical/Sexual Abuse/Trauma History: Denies. Mental Status Exam - Mental Status Exam Alert and Oriented to: Time, Place, Person Cognitive Function: Good Patient Appearance: Well Groomed Mood: Anxious Affect: Appropriate Patient Behavior: Cooperative Speech Pattern: Appropriate Voice Loudness: Normal Thought Process: Goal Oriented Thought Disorder: Not Present Hallucinations: Denies Suicidal Ideation: Denies Homicidal Ideation: Denies Insight/Judgement: Poor Sleep: Fair Appetite: Good Muscle strength/Tone: Normal Gait/Station: Other (Did not observe patient's gait.) Psychiatric Findings - Problem List ([place] 1, 2,3) (1) Schizophrenia Current Visit: Yes Status: Chronic (2) Alcohol dependence with uncomplicated withdrawal Current Visit: Yes Status: Acute (3) Opioid dependence with withdrawal Current Visit: Yes Status: Acute (4) Cocaine dependence, uncomplicated Current Visit: Yes Status: Chronic (5) Nicotine dependence Current Visit: Yes Status: Chronic Qualifiers: Nicotine product type: cigarettes Substance use status: uncomplicated Qualified Code(s): F17.210 - Nicotine dependence, cigarettes, uncomplicated - Initial Treatment Plan Initial Treatment Plan: Psychoeducation provided. Detoxification in progress. Pt. refusing to accept medication. Pt. made aware of the risk of the accepting medication. Observation.
[2017-08-03 17:10] LABS: ALBUMIN 4.2 g/dl (3.4-5.0); ALK PHOS 87 U/L (45-117); ANION GAP 10 (8-16); BILIRUBIN,TOTAL 0.4 mg/dL (0.2-1.0); BLOOD UREA NITROGEN 14 mg/dL (7-18); CALCIUM 9.4 mg/dL (8.5-10.1); CHLORIDE 109 mmol/L (98-107); CO2 21 mmol/L (21-32); CREATININE 0.8 mg/dL (0.55-1.02); GLUCOSE,RANDOM 98 mg/dL (74-106); POTASSIUM 3.9 mmol/L (3.5-5.1); SGOT/AST 26 U/L (15-37); SGPT/ALT 19 U/L (12-78); SODIUM 140 mmol/L (136-145); TOT PROT 9.2 g/dl (6.4-8.2)
[2017-08-03] MEDS: THIAMINE HCL 100 MG TABLET (FP) PO SCH (22:16)
[2017-08-03 23:02] LABS: URINE APPEARANCE TURBID; URINE BILIRUBIN NEGATIVE (<2.0 mg/dL); URINE BLOOD NEGATIVE (NEGATIVE); URINE COLOR DKYELLOW; URINE GLUCOSE (UA) NEGATIVE (NEGATIVE); URINE KETONE NEGATIVE (NEGATIVE); URINE NITRITE NEGATIVE (NEGATIVE); URINE PROTEIN NEGATIVE (NEGATIVE); URINE UROBILINOGEN 4.0 E.U/dl mg/dL (0.2-1.0)
[2017-08-03 23:31] LABS: URINE LEUK ESTERASE 3+ (NEGATIVE)
[2017-08-03 23:34] LABS: CALCIUM OXALATE CRYSTALS MANY /hpf (NONE SEEN); EPI CELLS FEW /HPF (FEW); URINE MUCUS FEW
[2017-08-04] MEDS: diazePAM 5 MG TABLET PO SCH ×3 (05:19→22:21)
[2017-08-04] MEDS ORDERED: PATIENT'S OWN MEDICATION (NON-FORMULARY) (Efavirenz/Emtricitab/Tenofovir 1 TAB) PO SCH (10:00)
[2017-08-04] MEDS ORDERED: METHADONE HCL 10 MG TABLET (FOR DETOX USE ONLY) PO SCH (10:00)
[2017-08-04] MEDS: diazePAM 5 MG TABLET PO PRN (10:34)
[2017-08-04] MEDS: PRENATAL VITAMINS W/ FOLIC ACID TABLET (FP) PO SCH (10:34)
[2017-08-04] MEDS: EFAVIRENZ 600 MG TABLET PO SCH (10:34)
[2017-08-04] MEDS: AMMONIUM LACTATE 12% LOTION 225 GM BOTTLE TP SCH ×2 (10:35→22:22)
[2017-08-04] MEDS: EMTRICITABINE 200MG/TENOFOVIR 300MG PO SCH (10:35)
[2017-08-04] MEDS: SELENIUM SULFIDE 2.5% LOTION 4 OZ. TP SCH (10:36)
--- NOTE | 2017-08-04 10:44 | PN ---
S CIWA - CIWA Score Nausea/Vomitin Muscle Tremors: 2 Anxiety: 2 Agitation: 2 Paroxysmal Sweats: 3 Orientation: 0-Oriented Tacttile Disturbances: 2-Mild Itch/Numbness/Burn Auditory Disturbances: 0-None Visual Disturbances: 0-None Headache: 0-None Present CIWA-Ar Total Score: 13 BHS COWS - Scale Resting Pulse: 0= [place] 80 or Below Sweatin=Flushed/Facial Moisture Restless Observation: 1= Difficult to Sit Still Pupil Size: 1= Pupils >than Normal Bone or Joint Aches: 2= Severe Diffuse Aches Runny Nose/ Eye Tearin= Nasal Congestion GI Upset > 30mins: 1= Stomach Cramp Tremor Observation of Outstretched Hands: 1= Tremor [place], Not Seen Yawning Observation: 1= 1-2x During Session Anxiety or Irritability: 1=Feels Anxious/Irritable Goose Flesh Skin: 0=Smooth Skin COWS Score: 11 S Progress Note (SOAP) Subjective: interrrupted sleep, sweats, Objective: 08/04/17 10:40 Vital Signs Temperature 97.7 F 08/04/17 09:23 Pulse Rate 51 L 08/04/17 09:23 Respiratory Rate 18 08/04/17 09:23 Blood Pressure 127/74 08/04/17 09:23 O2 Sat by Pulse Oximetry (%) Laboratory Tests 08/03/17 08/03/17 08/03/17 14:00 14:00 16:00 WBC 3.3 L RBC 4.09 Hgb 14.0 D Hct 40.7 MCV 99.7 H MCH 34.3 H MCHC 34.4 RDW 13.5 Plt Count 209 D MPV 9.8 D Sodium 140 Potassium 3.9 Chloride 109 H Carbon Dioxide 21 Anion Gap 10 BUN 14 Creatinine 0.8 Creat Clearance w eGFR > 60 Random Glucose 98 Calcium 9.4 Total Bilirubin 0.4 D AST 26 ALT 19 Alkaline Phosphatase 87 Total Protein 9.2 H Albumin 4.2 Urine Color Dkyellow Urine Appearance Turbid Urine pH 7.0 D Ur Specific [place] 1.015 Urine Protein Negative Urine Glucose (UA) Negative Urine Ketones Negative Urine Blood Negative Urine Nitrite Negative Urine Bilirubin Negative Urine Urobilinogen 4.0 e.u/dl H Ur Leukocyte Esterase 3+ H Urine WBC (Auto) 29 Urine RBC (Auto) 8 Ur Epithelial Cells Few Calcium Oxalate Crystal Many Urine Mucus Few pt aox3 in nad , lying in bed Assessment: 08/04/17 10:41 withdrawal sx's abn u/a low wbc 3.3 08/04/17 10:42 Plan: cont. detox increase fluids repeat u/a
--- NOTE | 2017-08-04 10:53 | EKG ---
Test Reason : Blood Pressure : / mmHG Vent. Rate : 047 BPM Atrial Rate : 047 BPM P-R Int : 166 ms QRS Dur : 088 ms QT Int : 504 ms P-R-T Axes : 032 057 046 degrees QTc Int : 446 ms SINUS BRADYCARDIA OTHERWISE NORMAL ECG WHEN COMPARED WITH ECG OF 13-APR-2017 19:38, NONSPECIFIC T WAVE ABNORMALITY NO LONGER EVIDENT IN LATERAL LEADS Confirmed by EDITH QUEZADA, SHELTON ([id number]) on 08/04/2017 10:52:55 AM Referred By: Confirmed By:SHELTON SHARMA MD
[2017-08-04] MEDS: MELATONIN 5 MG TABLETS PO PRN (22:21)
[2017-08-04] MEDS: THIAMINE HCL 100 MG TABLET (FP) PO SCH (22:21)
[2017-08-04 22:27] LABS: URINE APPEARANCE TURBID; URINE BILIRUBIN NEGATIVE (<2.0 mg/dL); URINE BLOOD NEGATIVE (NEGATIVE); URINE COLOR AMBER; URINE GLUCOSE (UA) NEGATIVE (NEGATIVE); URINE KETONE NEGATIVE (NEGATIVE); URINE NITRITE NEGATIVE (NEGATIVE); URINE PROTEIN NEGATIVE (NEGATIVE); URINE UROBILINOGEN 4.0 E.U/dl mg/dL (0.2-1.0)
[2017-08-04 22:32] LABS: URINE LEUK ESTERASE 2+ (NEGATIVE)
[2017-08-04 22:39] LABS: EPI CELLS RARE /HPF (FEW); URINE BACTERIA MODERATE /hpf (NONE SEEN); URINE MUCUS FEW
[2017-08-05] MEDS: EFAVIRENZ 600 MG TABLET PO SCH (10:10)
[2017-08-05] MEDS: METHADONE HCL 5 MG TABLET (FOR DETOX USE ONLY) PO SCH (10:11)
[2017-08-05] MEDS: PRENATAL VITAMINS W/ FOLIC ACID TABLET (FP) PO SCH (10:11)
[2017-08-05] MEDS: EMTRICITABINE 200MG/TENOFOVIR 300MG PO SCH (10:11)
[2017-08-05] MEDS: diazePAM 5 MG TABLET PO SCH ×2 (10:11→22:10)
[2017-08-05] MEDS: AMMONIUM LACTATE 12% LOTION 225 GM BOTTLE TP SCH ×2 (10:12→22:11)
[2017-08-05] MEDS: SELENIUM SULFIDE 2.5% LOTION 4 OZ. TP SCH (11:28)
[2017-08-05] MEDS: diazePAM 5 MG TABLET PO PRN ×2 (12:54→17:35)
--- NOTE | 2017-08-05 13:26 | PN ---
[facility] CIWA - CIWA Score Nausea/Vomitin-No Nausea/No Vomiting Muscle Tremors: 3 Anxiety: 3 Agitation: 3 Paroxysmal Sweats: 1-Minimal Palms Moist Orientation: 0-Oriented Tacttile Disturbances: 1-Very Mild Itch/Numbness Auditory Disturbances: 0-None Visual Disturbances: 0-None Headache: 0-None Present CIWA-Ar Total Score: 11 BHS COWS - Scale Resting Pulse: 0= [place] 80 or Below Sweatin= Chills/Flushing Restless Observation: 1= Difficult to Sit Still Pupil Size: 0= Normal to Room Light Bone or Joint Aches: 1= Mild Discomfort Runny Nose/ Eye Tearin= Nasal Congestion GI Upset > 30mins: 1= Stomach Cramp Tremor Observation of Outstretched Hands: 2= Slight Tremor Visible Yawning Observation: 2= >3x During Session Anxiety or Irritability: 1=Feels Anxious/Irritable Goose Flesh Skin: 0=Smooth Skin COWS Score: 10 S Progress Note (SOAP) Subjective: anxiety joint pain body ache tremor sweat gi distress Objective: 08/05/17 13:25 Vital Signs Temperature 97.9 F 08/05/17 10:25 Pulse Rate 56 L 08/05/17 10:25 Respiratory Rate 18 08/05/17 10:25 Blood Pressure 98/69 08/05/17 10:25 O2 Sat by Pulse Oximetry (%) Laboratory Last Values WBC 3.3 K/mm3 (4.0-10.0) L 08/03/17 14:00 RBC 4.09 M/mm3 (3.60-5.2) 08/03/17 14:00 Hgb 14.0 GM/dL (10.7-15.3) D 08/03/17 14:00 Hct 40.7 % (32.4-45.2) 08/03/17 14:00 MCV 99.7 fl (80-96) H 08/03/17 14:00 MCH 34.3 pg (25.7-33.7) H 08/03/17 14:00 MCHC 34.4 g/dl (32.0-36.0) 08/03/17 14:00 RDW 13.5 % (11.6-15.6) 08/03/17 14:00 Plt Count 209 K/MM3 (134-434) D 08/03/17 14:00 MPV 9.8 fl (7.5-11.1) D 08/03/17 14:00 Sodium 140 mmol/L (136-145) 08/03/17 14:00 Potassium 3.9 mmol/L (3.5-5.1) 08/03/17 14:00 Chloride 109 mmol/L (98-107) H 08/03/17 14:00 Carbon Dioxide 21 mmol/L (21-32) 08/03/17 14:00 Anion Gap 10 (8-16) 08/03/17 14:00 BUN 14 mg/dL (7-18) 08/03/17 14:00 Creatinine 0.8 mg/dL (0.55-1.02) 08/03/17 14:00 Creat Clearance w eGFR > 60 (>60) 08/03/17 14:00 Random Glucose 98 mg/dL (74-106) 08/03/17 14:00 Calcium 9.4 mg/dL (8.5-10.1) 08/03/17 14:00 Total Bilirubin 0.4 mg/dL (0.2-1.0) D 08/03/17 14:00 AST 26 U/L (15-37) 08/03/17 14:00 ALT 19 U/L (12-78) 08/03/17 14:00 Alkaline Phosphatase 87 U/L (45-117) 08/03/17 14:00 Total Protein 9.2 g/dl (6.4-8.2) H 08/03/17 14:00 Albumin 4.2 g/dl (3.4-5.0) 08/03/17 14:00 Urine Color [place] 08/04/17 19:00 Urine Appearance Turbid 08/04/17 19:00 Urine pH 7.0 (5.0-8.0) 08/04/17 19:00 Ur Specific [place] 1.020 (1.001-1.035) 08/04/17 19:00 Urine Protein Negative (NEGATIVE) 08/04/17 19:00 Urine Glucose (UA) Negative (NEGATIVE) 08/04/17 19:00 Urine Ketones Negative (NEGATIVE) 08/04/17 19:00 Urine Blood Negative (NEGATIVE) 08/04/17 19:00 Urine Nitrite Negative (NEGATIVE) 08/04/17 19:00 Urine Bilirubin Negative (<2.0 mg/dL) 08/04/17 19:00 Urine Urobilinogen 4.0 e.u/dl mg/dL (0.2-1.0) H 08/04/17 19:00 Ur Leukocyte Esterase 2+ (NEGATIVE) H 08/04/17 19:00 Urine WBC (Auto) 33 /hpf (3-5) 08/04/17 19:00 Urine RBC (Auto) 4 /hpf (0-3) 08/04/17 19:00 Ur Epithelial Cells Rare /HPF (FEW) 08/04/17 19:00 Calcium Oxalate Crystal Many /hpf (NONE SEEN) 08/03/17 16:00 Urine Bacteria Moderate /hpf (NONE SEEN) 08/04/17 19:00 Urine Mucus Few 08/04/17 19:00 RPR Titer Nonreactive (NONREACTIVE) 08/03/17 14:00 lab noted Assessment: 08/05/17 13:26 withdrawal sx Plan: continue detox
--- NOTE | 2017-08-05 14:29 | PN ---
Psychiatric Progress Note Vital Signs: Vital Signs Period Temp Pulse Resp BP Sys/Franco Pulse Ox Last 24 Hr 97.7 F-99.9 F 47-72 16-18 97-121/54-71 Date of Session: 08/05/17 Chief Complaint:: Insomnia HPI: As per nursing report Patient complains for Insomnia, reports taking Ambien in the past with good response Current Medications: Active Medications Generic Name Dose Route Start Last Admin Trade Name Freq PRN Reason Stop Dose Admin Acetaminophen 650 mg 08/03/17 13:45 Tylenol - PO Q4H PRN FEVER Al Hydroxide/Mg Hydroxide 30 ml 08/03/17 13:45 Mylanta Oral Suspension - PO Q6H PRN DYSPEPSIA Albuterol Sulfate 2 puff 08/03/17 13:48 Ventolin Hfa Inhaler - IH Q4H PRN WHEEZING Diazepam 5 mg 08/05/17 10:00 08/05/17 10:11 Valium - PO 08/06/17 22:01 5 mg BID SILVANA Administration Diazepam 5 mg 08/07/17 10:00 Valium - PO 08/07/17 10:01 DAILY SILVANA Diazepam 10 mg 08/03/17 13:45 08/05/17 12:54 Valium - PO 08/06/17 13:45 10 mg Q4H PRN Administration WITHDRAWAL(CONT SUBST) Efavirenz 600 mg 08/04/17 10:00 08/05/17 10:10 Sustiva - PO 600 mg DAILY SILVANA Administration Emtricitabine/Tenofovir 1 tab 08/04/17 10:00 08/05/17 10:11 Truvada PO 1 tab DAILY SILVANA Administration Eucalyptus/Menthol/Phenol/Sorbitol 1 each 08/03/17 13:45 Cepastat Lozenge - MM Q4H PRN SORE THROAT Guaifenesin 10 ml 08/03/17 13:45 Robitussin Dm - PO Q6H PRN COUGH Ibuprofen 400 mg 08/03/17 13:45 Motrin - PO Q6H PRN PAIN LEVEL 4-6 Lactic Acid 1 applic 08/03/17 14:00 08/05/17 10:12 Lac-Hydrin 12 TP Not Given BID SILVANA Loperamide HCl 4 mg 08/03/17 13:45 Imodium - PO Q6H PRN DIARRHEA Magnesium Citrate 300 ml 08/03/17 13:45 Citroma - PO Q48H PRN CONSTIPATION Magnesium Hydroxide 30 ml 08/03/17 13:45 Milk Of Magnesia - PO DAILY PRN CONSTIPATION Melatonin 5 mg 08/03/17 22:00 08/04/17 22:21 Melatonin PO 5 mg HS PRN Administration INSOMNIA Methadone HCl 10 mg 08/07/17 10:00 Dolophine - PO 08/07/17 10:01 DAILY SILVANA Methadone HCl 15 mg 08/05/17 10:00 08/05/17 10:11 Dolophine - PO 08/06/17 10:01 15 mg DAILY SILVANA Administration Methadone HCl 5 mg 08/08/17 06:00 Dolophine - PO 08/08/17 06:01 DAILY@0600 SILVANA Multivit/Folic Acid/Iron 1 tab 08/04/17 10:00 08/05/17 10:11 Vitamins (Sjr) - PO 1 tab DAILY SILVANA Administration Pseudoephedrine/Triprolidine 1 combo 08/03/17 13:45 Actifed - PO TID PRN NASAL CONGESTION Selenium Sulfide 1 applic 08/04/17 10:00 08/05/17 11:28 Selsun 2.5% Lotion - TP 08/11/17 09:59 1 applic DAILY SILVANA Administration Thiamine HCl 100 mg 08/03/17 22:00 08/04/17 22:21 Vitamin B1 - PO 100 mg HS SILVANA Administration Provider note:: Chart revewed, patient evaluated, as per Dr. Nagy notes, patient has a history of Schzophrenia and has been taking Haldol Decanoate IM last month, patient does not remember on what dfay injection has been done, she reports : '' last month'', patient refusing Haldol injections, refusing po Haldol as well, denies delusions and hallucinations, suicidal and homicidal ideation, following directionsm making stable eye contact and asking for sleeping medications. Patientn asking for sleeping medications and reports good response on Ambien 10mg po qhs in the past. Mental Status Exam - Mental Status Exam Alert and Oriented to: Person Cognitive Function: Fair Patient Appearance: Unkempt Mood: Nervous, Anxious Affect: Constricted Patient Behavior: Talkative, Cooperative Speech Pattern: Excessive Voice Loudness: Normal Thought Process: Circumstantial Thought Disorder: Being Controlled Hallucinations: Denies Suicidal Ideation: Denies Homicidal Ideation: Denies Insight/Judgement: Fair Sleep: Difficulty falling asleep Appetite: Weight loss Muscle strength/Tone: Mild Hypertonicity Gait/Station: Normal Additional Comments: Ambien 10mg po prn qhs Psychiatric Treatment Plan - Problem List (1) Alcohol dependence with uncomplicated withdrawal Current Visit: Yes (2) Cocaine dependence, uncomplicated Current Visit: Yes (3) Nicotine dependence Current Visit: Yes Qualifiers: Nicotine product type: cigarettes Substance use status: uncomplicated Qualified Code(s): F17.210 - Nicotine dependence, cigarettes, uncomplicated (4) Opioid dependence with withdrawal Current Visit: Yes (5) Schizophrenia Current Visit: Yes Qualifiers: Schizophrenia type: paranoid schizophrenia Qualified Code(s): F20.0 - Paranoid schizophrenia (6) Sedative, hypnotic or anxiolytic dependence with withdrawal, uncomplicated Current Visit: Yes (7) Alcohol dependence Current Visit: No (8) Cocaine dependence Current Visit: No (9) Opioid dependence Current Visit: No (10) Substance-induced anxiety disorder Current Visit: No (11) Substance-induced sleep disorder Current Visit: No Initial treatment plan: Ambien 10mg po prn qhs. Haldol 1mg po prn q4 for agitation and psychosis (12) Non compliance w medication regimen Current Visit: Yes
[2017-08-05] MEDS: THIAMINE HCL 100 MG TABLET (FP) PO SCH (22:10)
[2017-08-05] MEDS: MELATONIN 5 MG TABLETS PO PRN (22:10)
[2017-08-06] MEDS: PRENATAL VITAMINS W/ FOLIC ACID TABLET (FP) PO SCH (09:57)
[2017-08-06] MEDS: diazePAM 5 MG TABLET PO SCH ×2 (09:57→22:26)
[2017-08-06] MEDS: METHADONE HCL 5 MG TABLET (FOR DETOX USE ONLY) PO SCH (09:57)
[2017-08-06] MEDS: EFAVIRENZ 600 MG TABLET PO SCH (09:57)
[2017-08-06] MEDS: AMMONIUM LACTATE 12% LOTION 225 GM BOTTLE TP SCH ×2 (09:59→22:25)
[2017-08-06] MEDS ORDERED: hydrOXYzine PAMOATE 50 MG CAPSULE (FP) PO PRN (09:59)
[2017-08-06] MEDS: EMTRICITABINE 200MG/TENOFOVIR 300MG PO SCH (09:59)
[2017-08-06] MEDS: SELENIUM SULFIDE 2.5% LOTION 4 OZ. TP SCH (09:59)
--- NOTE | 2017-08-06 10:03 | PN ---
S CIWA - CIWA Score Nausea/Vomitin Muscle Tremors: 3 Anxiety: 3 Agitation: 3 Paroxysmal Sweats: 1-Minimal Palms Moist Orientation: 0-Oriented Tacttile Disturbances: 0-None Auditory Disturbances: 0-None Visual Disturbances: 0-None Headache: 0-None Present CIWA-Ar Total Score: 13 BHS COWS - Scale Resting Pulse: 0= MO 80 or Below Sweatin= Chills/Flushing Restless Observation: 1= Difficult to Sit Still Pupil Size: 1= Pupils >than Normal Bone or Joint Aches: 1= Mild Discomfort Runny Nose/ Eye Tearin= Nasal Congestion GI Upset > 30mins: 2= Nausea/Diarrhea Tremor Observation of Outstretched Hands: 2= Slight Tremor Visible Yawning Observation: 1= 1-2x During Session Anxiety or Irritability: 2=Irritable/Anxious Goose Flesh Skin: 0=Smooth Skin COWS Score: 12 S Progress Note (SOAP) Subjective: nausea, sweats, interrupted lseep, anxity, tremors Objective: 08/06/17 10:02 Vital Signs - 24 hr 08/05/17 08/05/17 08/05/17 10:25 15:07 18:45 Temperature 97.9 F 97.7 F 98.2 F Pulse Rate 56 L 65 55 L Respiratory 18 20 16 Rate Blood Pressure 98/69 115/72 97/53 08/05/17 08/06/17 08/06/17 22:05 00:30 03:30 Temperature 97.7 F Pulse Rate 67 Respiratory 18 18 18 Rate Blood Pressure 105/54 08/06/17 06:00 Temperature 97.2 F L Pulse Rate 64 Respiratory 18 Rate Blood Pressure 98/53 Laboratory Tests 08/03/17 08/03/17 08/03/17 14:00 14:00 14:00 WBC 3.3 L RBC 4.09 Hgb 14.0 D Hct 40.7 MCV 99.7 H MCH 34.3 H MCHC 34.4 RDW 13.5 Plt Count 209 D MPV 9.8 D Sodium 140 Potassium 3.9 Chloride 109 H Carbon Dioxide 21 Anion Gap 10 BUN 14 Creatinine 0.8 Creat Clearance w eGFR > 60 Random Glucose 98 Calcium 9.4 Total Bilirubin 0.4 D AST 26 ALT 19 Alkaline Phosphatase 87 Total Protein 9.2 H Albumin 4.2 Urine Color Urine Appearance Urine pH Ur Specific [place] Urine Protein Urine Glucose (UA) Urine Ketones Urine Blood Urine Nitrite Urine Bilirubin Urine Urobilinogen Ur Leukocyte Esterase Urine WBC (Auto) Urine RBC (Auto) Ur Epithelial Cells Calcium Oxalate Crystal Urine Bacteria Urine Mucus RPR Titer Nonreactive 08/03/17 08/04/17 16:00 19:00 WBC RBC Hgb Hct MCV MCH MCHC RDW Plt Count MPV Sodium Potassium Chloride Carbon Dioxide Anion Gap BUN Creatinine Creat Clearance w eGFR Random Glucose Calcium Total Bilirubin AST ALT Alkaline Phosphatase Total Protein Albumin Urine Color Dkyellow Elvira Urine Appearance Turbid Turbid Urine pH 7.0 D 7.0 Ur Specific [place] 1.015 1.020 Urine Protein Negative Negative Urine Glucose (UA) Negative Negative Urine Ketones Negative Negative Urine Blood Negative Negative Urine Nitrite Negative Negative Urine Bilirubin Negative Negative Urine Urobilinogen 4.0 e.u/dl H 4.0 e.u/dl H Ur Leukocyte Esterase 3+ H 2+ H Urine WBC (Auto) 29 33 Urine RBC (Auto) 8 4 Ur Epithelial Cells Few Rare Calcium Oxalate Crystal Many Urine Bacteria Moderate Urine Mucus Few Few RPR Titer Assessment: 08/06/17 10:02 withdrawwal sx, cont detox, symptomtic relief ordered sa requested by pateint
[2017-08-06] MEDS ORDERED: ONDANSETRON *ODT* 4 MG TABLET SL ONE (10:20)
[2017-08-06] MEDS: NAPROXEN 500 MG TABLET (FP) PO SCH ×2 (10:28→22:25)
[2017-08-06] MEDS ORDERED: diazePAM 5 MG TABLET PO ONE (11:20)
[2017-08-06] MEDS ORDERED: GABAPENTIN 100 MG CAPSULE (FP) PO SCH (14:00)
[2017-08-06] MEDS: GABAPENTIN 300 MG CAPSULE (FP) PO SCH ×2 (14:37→22:25)
[2017-08-06] MEDS: CYCLOBENZAPRINE HCL 10 MG TABLET (FP) PO SCH ×2 (14:37→22:25)
--- NOTE | 2017-08-06 17:20 | PN ---
Psychiatric Progress Note Vital Signs: Vital Signs Period Temp Pulse Resp BP Sys/Franco Pulse Ox Last 24 Hr 96.1 F-98.2 F 55-68 16-18 97-109/53-66 Date of Session: 08/06/17 Chief Complaint:: " I can't sleep." HPI: Pt. admitted to [facility] detox for alcohol, cocaine and opiate dependence. ROS: Unremarkable Current Medications: Active Medications Generic Name Dose Route Start Last Admin Trade Name Freq PRN Reason Stop Dose Admin Acetaminophen 650 mg 08/03/17 13:45 Tylenol - PO Q4H PRN FEVER Al Hydroxide/Mg Hydroxide 30 ml 08/03/17 13:45 Mylanta Oral Suspension - PO Q6H PRN DYSPEPSIA Albuterol Sulfate 2 puff 08/03/17 13:48 Ventolin Hfa Inhaler - IH Q4H PRN WHEEZING Cyclobenzaprine HCl 10 mg 08/06/17 14:00 08/06/17 14:37 Flexeril - PO 10 mg TID SILVANA Administration Diazepam 5 mg 08/05/17 10:00 08/06/17 09:57 Valium - PO 08/06/17 22:01 5 mg BID SILVANA Administration Diazepam 5 mg 08/07/17 10:00 Valium - PO 08/07/17 10:01 DAILY SILVANA Efavirenz 600 mg 08/04/17 10:00 08/06/17 09:57 Sustiva - PO 600 mg DAILY SILVANA Administration Emtricitabine/Tenofovir 1 tab 08/04/17 10:00 08/06/17 09:59 Truvada PO 1 tab DAILY SILVANA Administration Eucalyptus/Menthol/Phenol/Sorbitol 1 each 08/03/17 13:45 Cepastat Lozenge - MM Q4H PRN SORE THROAT Gabapentin 300 mg 08/06/17 14:00 08/06/17 14:37 Neurontin - PO 300 mg TID SILVANA Administration Guaifenesin 10 ml 08/03/17 13:45 Robitussin Dm - PO Q6H PRN COUGH Hydroxyzine Pamoate 50 mg 08/06/17 09:59 08/06/17 16:03 Vistaril - PO 50 mg Q4H PRN Administration FOR ITCHING Lactic Acid 1 applic 08/03/17 14:00 08/06/17 09:59 Lac-Hydrin 12 TP Not Given BID SILVANA Loperamide HCl 4 mg 08/03/17 13:45 Imodium - PO Q6H PRN DIARRHEA Magnesium Citrate 300 ml 08/03/17 13:45 Citroma - PO Q48H PRN CONSTIPATION Magnesium Hydroxide 30 ml 08/03/17 13:45 Milk Of Magnesia - PO DAILY PRN CONSTIPATION Melatonin 5 mg 08/03/17 22:00 08/05/17 22:10 Melatonin PO 5 mg HS PRN Administration INSOMNIA Methadone HCl 10 mg 08/07/17 10:00 Dolophine - PO 08/07/17 10:01 DAILY SILVANA Methadone HCl 5 mg 08/08/17 06:00 Dolophine - PO 08/08/17 06:01 DAILY@0600 SILVANA Naproxen 500 mg 08/06/17 10:00 08/06/17 10:28 Naprosyn - PO 500 mg BID SILVANA Administration Multivit/Folic Acid/Iron 1 tab 08/04/17 10:00 08/06/17 09:57 Vitamins (Sjr) - PO 1 tab DAILY SILVANA Administration Pseudoephedrine/Triprolidine 1 combo 08/03/17 13:45 Actifed - PO TID PRN NASAL CONGESTION Selenium Sulfide 1 applic 08/04/17 10:00 08/06/17 09:59 Selsun 2.5% Lotion - TP 08/11/17 09:59 Not Given DAILY [facility] Thiamine HCl 100 mg 08/03/17 22:00 08/05/17 22:10 Vitamin B1 - PO 100 mg HS SILVANA Administration Zolpidem Tartrate 10 mg 08/06/17 22:00 Ambien - PO 08/09/17 21:59 HS PRN INSOMNIA Medication(s) Change(s): No. Provider note:: Service Car Driver met with patient concerning her psychiatric reconsultation. Pt. reports poor sleep. Charts reviewed. Previous notes read and appreciated. Patient is ordered ambien 10mg for sleep but did not receive medication last night. Pt. made aware that ambien 10mg is available for her to accept for insomnia. Pt. appeared restless and was educated on the medication vistaril which she also has ordered. Benefits and side effects discussed. Pt. made aware of the risk of parasomnia when accepting ambien. Pt. receptive and satisifed with feedback. Will continue to monitor. Total face to face time:: 20 Mental Status Exam - Mental Status Exam Alert and Oriented to: Time, Place, Person Cognitive Function: Good Patient Appearance: Well Groomed Mood: Anxious Affect: Appropriate Patient Behavior: Cooperative Speech Pattern: Appropriate Voice Loudness: Normal Thought Process: Goal Oriented Thought Disorder: Not Present Hallucinations: Denies Suicidal Ideation: Denies Homicidal Ideation: Denies Insight/Judgement: Poor Sleep: Poorly Appetite: Fair Muscle strength/Tone: Normal Gait/Station: Normal Psychiatric Treatment Plan - Problem List (1) Schizophrenia Current Visit: Yes Qualifiers: Schizophrenia type: paranoid schizophrenia Qualified Code(s): F20.0 - Paranoid schizophrenia (2) Alcohol dependence with uncomplicated withdrawal Current Visit: Yes (3) Opioid dependence with withdrawal Current Visit: Yes (4) Cocaine dependence, uncomplicated Current Visit: Yes (5) Nicotine dependence Current Visit: Yes Qualifiers: Nicotine product type: cigarettes Substance use status: uncomplicated Qualified Code(s): F17.210 - Nicotine dependence, cigarettes, uncomplicated
[2017-08-06] MEDS ORDERED: ZOLPIDEM TARTRATE 10 MG TABLET (PARK CARE ONLY) PO PRN (22:00)
[2017-08-06] MEDS: ZOLPIDEM TARTRATE 10 MG TABLET (PARK CARE ONLY) PO PRN (22:25)
[2017-08-06] MEDS: THIAMINE HCL 100 MG TABLET (FP) PO SCH (22:26)
[2017-08-07] MEDS: CYCLOBENZAPRINE HCL 10 MG TABLET (FP) PO SCH ×3 (06:16→22:21)
[2017-08-07] MEDS: GABAPENTIN 300 MG CAPSULE (FP) PO SCH ×3 (06:16→22:21)
[2017-08-07] MEDS ORDERED: diazePAM 5 MG TABLET PO SCH (10:00)
[2017-08-07] MEDS ORDERED: METHADONE HCL 10 MG TABLET (FOR DETOX USE ONLY) PO SCH (10:00)
[2017-08-07] MEDS: NAPROXEN 500 MG TABLET (FP) PO SCH ×2 (10:46→22:21)
[2017-08-07] MEDS: AMMONIUM LACTATE 12% LOTION 225 GM BOTTLE TP SCH ×2 (10:46→22:46)
[2017-08-07] MEDS: PRENATAL VITAMINS W/ FOLIC ACID TABLET (FP) PO SCH (10:46)
[2017-08-07] MEDS: EFAVIRENZ 600 MG TABLET PO SCH (10:47)
[2017-08-07] MEDS: EMTRICITABINE 200MG/TENOFOVIR 300MG PO SCH (10:47)
[2017-08-07] MEDS: SELENIUM SULFIDE 2.5% LOTION 4 OZ. TP SCH (10:47)
--- NOTE | 2017-08-07 15:44 | PN ---
S Progress Note (SOAP) Subjective: ALERT,IRRITABLE,ANXIOUS,INTERRUPTED SLEEP Objective: 08/07/17 15:43 Vital Signs Temperature 96.4 F L 08/07/17 11:32 Pulse Rate 71 08/07/17 11:32 Respiratory Rate 20 08/07/17 11:32 Blood Pressure 119/66 08/07/17 11:32 O2 Sat by Pulse Oximetry (%) Assessment: 08/07/17 15:43 WITHDRAWAL SYMPTOM Plan: CONTINUE DETOX,DISCHARGE IN AM
[2017-08-07] MEDS: THIAMINE HCL 100 MG TABLET (FP) PO SCH (22:21)
[2017-08-07] MEDS: ZOLPIDEM TARTRATE 10 MG TABLET (PARK CARE ONLY) PO PRN (22:21)
[2017-08-08] MEDS: GABAPENTIN 300 MG CAPSULE (FP) PO SCH (05:56)
[2017-08-08] MEDS: CYCLOBENZAPRINE HCL 10 MG TABLET (FP) PO SCH (05:56)
[2017-08-08] MEDS ORDERED: METHADONE HCL 5 MG TABLET (FOR DETOX USE ONLY) PO SCH (06:00)
[2017-08-08 07:02] VITALS: BP 101/51; PULSE 59; TEMP 97.5
--- NOTE | 2017-08-08 11:13 | DS ---
[facility] Detox Discharge Summary Admission Date: 08/03/17 Discharge Date: 08/08/17 - History Present History: Alcohol Dependence, Opioid Dependence Additional Comments: 57 years old female admitted for alcohol banzo opioid detox completed detox regimen tolerated well alert oriented x 3 no acute distress wants to go to [facility] for rehab at [facility] Physical Exam Results Vital Signs: Vital Signs Temperature 97.5 F L 08/08/17 07:02 Pulse Rate 59 L 08/08/17 07:02 Respiratory Rate 18 08/08/17 07:02 Blood Pressure 101/51 08/08/17 07:02 O2 Sat by Pulse Oximetry (%) Pertinent Admission Physical Exam Findings: withdrawal sx Laboratory Last Values WBC 3.3 K/mm3 (4.0-10.0) L 08/03/17 14:00 RBC 4.09 M/mm3 (3.60-5.2) 08/03/17 14:00 Hgb 14.0 GM/dL (10.7-15.3) D 08/03/17 14:00 Hct 40.7 % (32.4-45.2) 08/03/17 14:00 MCV 99.7 fl (80-96) H 08/03/17 14:00 MCH 34.3 pg (25.7-33.7) H 08/03/17 14:00 MCHC 34.4 g/dl (32.0-36.0) 08/03/17 14:00 RDW 13.5 % (11.6-15.6) 08/03/17 14:00 Plt Count 209 K/MM3 (134-434) D 08/03/17 14:00 MPV 9.8 fl (7.5-11.1) D 08/03/17 14:00 Sodium 140 mmol/L (136-145) 08/03/17 14:00 Potassium 3.9 mmol/L (3.5-5.1) 08/03/17 14:00 Chloride 109 mmol/L (98-107) H 08/03/17 14:00 Carbon Dioxide 21 mmol/L (21-32) 08/03/17 14:00 Anion Gap 10 (8-16) 08/03/17 14:00 BUN 14 mg/dL (7-18) 08/03/17 14:00 Creatinine 0.8 mg/dL (0.55-1.02) 08/03/17 14:00 Creat Clearance w eGFR > 60 (>60) 08/03/17 14:00 Random Glucose 98 mg/dL (74-106) 08/03/17 14:00 Calcium 9.4 mg/dL (8.5-10.1) 08/03/17 14:00 Total Bilirubin 0.4 mg/dL (0.2-1.0) D 08/03/17 14:00 AST 26 U/L (15-37) 08/03/17 14:00 ALT 19 U/L (12-78) 08/03/17 14:00 Alkaline Phosphatase 87 U/L (45-117) 08/03/17 14:00 Total Protein 9.2 g/dl (6.4-8.2) H 08/03/17 14:00 Albumin 4.2 g/dl (3.4-5.0) 08/03/17 14:00 Urine Color Elvira 08/04/17 19:00 Urine Appearance Turbid 08/04/17 19:00 Urine pH 7.0 (5.0-8.0) 08/04/17 19:00 Ur Specific [place] 1.020 (1.001-1.035) 08/04/17 19:00 Urine Protein Negative (NEGATIVE) 08/04/17 19:00 Urine Glucose (UA) Negative (NEGATIVE) 08/04/17 19:00 Urine Ketones Negative (NEGATIVE) 08/04/17 19:00 Urine Blood Negative (NEGATIVE) 08/04/17 19:00 Urine Nitrite Negative (NEGATIVE) 08/04/17 19:00 Urine Bilirubin Negative (<2.0 mg/dL) 08/04/17 19:00 Urine Urobilinogen 4.0 e.u/dl mg/dL (0.2-1.0) H 08/04/17 19:00 Ur Leukocyte Esterase 2+ (NEGATIVE) H 08/04/17 19:00 Urine WBC (Auto) 33 /hpf (3-5) 08/04/17 19:00 Urine RBC (Auto) 4 /hpf (0-3) 08/04/17 19:00 Ur Epithelial Cells Rare /HPF (FEW) 08/04/17 19:00 Calcium Oxalate Crystal Many /hpf (NONE SEEN) 08/03/17 16:00 Urine Bacteria Moderate /hpf (NONE SEEN) 08/04/17 19:00 Urine Mucus Few 08/04/17 19:00 RPR Titer Nonreactive (NONREACTIVE) 08/03/17 14:00 lab noted - Treatment Hospital Course: Detox Protocol Followed, Detoxed Safely, Responded well, Discharged Condition Good, Rehab Referral Accepted Patient has Accepted a Rehab Referral to: [facility] - Medication Discharge Medications: Ambulatory Orders Albuterol Sulfate Inhaler - [Ventolin HFA Inhaler -] 2 puff IH Q4H PRN #1 inhaler 08/06/17 Efavirenz/Emtricitab/Tenofovir [Atripla Tablet -] 1 tab PO DAILY #30 tab - Diagnosis (1) Alcohol dependence with uncomplicated withdrawal Status: Acute (2) Asthma Status: Chronic Qualifiers: Asthma severity: mild Asthma persistence: intermittent Asthma complication type: uncomplicated Qualified Code(s): J45.20 - Mild intermittent asthma, uncomplicated (3) HIV (human immunodeficiency virus infection) Status: Chronic (4) Hepatitis C Status: Chronic Qualifiers: Viral hepatitis chronicity: chronic Hepatic coma status: without hepatic coma Qualified Code(s): B18.2 - Chronic viral hepatitis C (5) Nicotine dependence Status: Acute Qualifiers: Nicotine product type: cigarettes Substance use status: in withdrawal Qualified Code(s): F17.213 - Nicotine dependence, cigarettes, with withdrawal (6) Opioid dependence with withdrawal Status: Acute (7) Schizophrenia Status: Suspected Qualifiers: Schizophrenia type: paranoid schizophrenia Qualified Code(s): F20.0 - Paranoid schizophrenia - AMA Did Patient Leave Against Medical Advice: No
== END 2017-08-08 10:20 | disposition home or self-care (01) | DRG 773 ==
LOC: YASAS 10:41 → Y6N 13:47
PROVIDERS: ADMIT Internal Medicine; ATTEND Internal Medicine
PROC: HZ2ZZZZ Detoxification Services for Substance Abuse Treatment (ICD-10-PCS; principal; 2017-08-03)
DX: F11.23 Opioid dependence with withdrawal (principal); F10.230 Alcohol dependence with withdrawal, uncomplicated; F17.213 Nicotine dependence, cigarettes, with withdrawal; F20.0 Paranoid schizophrenia; F19.280 Other psychoactive substance dependence with psychoactive substance-induced anxiety disorder; F19.282 Other psychoactive substance dependence with psychoactive substance-induced sleep disorder; Z21 Asymptomatic human immunodeficiency virus [HIV] infection status; B18.2 Chronic viral hepatitis C; J45.20 Mild intermittent asthma, uncomplicated; Z91.5 Personal history of self-harm
CPT/HCPCS: 36415; 80053; 81003; 81015; 85027; 86593; 87086; 93005; 93010

== ENCOUNTER 2017-09-06 14:46 | Inpatient (IN) | payer OTHER ==
[2017-09-06 16:53] VITALS: BMI 22.4
--- NOTE | 2017-09-06 19:06 | HP ---
COWS - Scale Resting Pulse: 2= GA 101-120 Sweatin= Beads of Sweat on Face Restless Observation: 5= Unable to Sit Still Pupil Size: 0= Normal to Room Light Bone or Joint Aches: 2= Severe Diffuse Aches Runny Nose/ Eye Tearin= Nasal Congestion GI Upset > 30mins: 2= Nausea/Diarrhea Tremor Observation: 4= Gross Tremor/Twitching Yawning Observation: 0= None Anxiety or Irritability: 2=Irritable/Anxious Goose Flesh Skin: 0=Smooth Skin COWS Score: 21 CIWA Score - CIWA Score Nausea/Vomitin-Mild Nausea/No Vomiting Muscle Tremors: 4-Moderate,w/Arms Extend Anxiety: 4-Mod. Anxious/Guarded Agitation: 4-Moderately Restless Paroxysmal Sweats: 4-Forehead w/Sweat Beads Orientation: 0-Oriented Tacttile Disturbances: 0-None Auditory Disturbances: 0-None Visual Disturbances: 0-None Headache: 0-None Present CIWA-Ar Total Score: 17 Admission ROS [facility] - HPI Chief Complaint: Here for heroin and xanax withdrawal, Also c/o w/drawal from crack and alcohol. Allergies/Adverse Reactions: Allergies Allergy/AdvReac Type Severity Reaction Status Date / Time chicken derived Allergy Severe Itching Verified 09/06/17 17:36 Fish Containing Products Allergy Severe Itching Verified 09/06/17 17:36 No Known Drug Allergies Allergy Verified 09/06/17 17:36 History of Present Illness: Heroin use since age 13. Crack began around age 15. Currently uses alot daily. and Alcohol use began around age 9. Currently drinks a 1/5 liquor and 6 pack beer daily. Xanax use began around age 53. Currently use around 4-5 sticks daily. Middle of last night 09/06/17. Other helath problems include HIV when diagnosed in Exam Limitations: No Limitations - Ebola screening Have you traveled outside of the country in the last 21 days: No Have you had contact with anyone from an Ebola affected area: No Have you been sick,other than usual withdrawal symptoms: No Do you have a fever: No - Review of Systems Constitutional: Chills, Diaphoresis, Changes in sleep (Sleeping difficulty during wihdrawal.) EENT: reports: No Symptoms Reported, Dental Problems (No teeth. Denies difficulty eating regular food.) Respiratory: reports: No Symptoms reported (asthma. Denies recent exacerbation) , Other Cardiac: reports: No Symptoms Reported GI: reports: Diarrhea, Abdominal cramping : reports: No Symptoms Reported Musculoskeletal: reports: Back Pain (because of withdrawal), Joint Pain ( because of withdrawal) Integumentary: reports: Lesions (from disgging/scratching skin.) Neuro: reports: Tremors, Weakness Endocrine: reports: No Symptoms Reported Hematology: reports: Other (HIV positive) Psychiatric: reports: Orientated x3, Agitated, Anxious Patient History - Patient Medical History Hx Anemia: No Hx Asthma: Yes (uses albuterol. No exacerbation for months) Hx Chronic Obstructive Pulmonary Disease (COPD): No Hx Cancer: No Hx Cardiac Disorders: No Hx Congestive Heart Failure: No Hx Hypertension: No Hx Hypercholesterolemia: No Hx Pacemaker: No HX Cerebrovascular Accident: No Hx Seizures: No Hx Dementia: No Hx Diabetes: No Hx Gastrointestinal Disorders: No Hx Liver Disease: Yes (Hep C, No Treatment Yet.) Hx Genitourinary Disorders: No Hx Sexually Transmitted Disorders: No Hx Renal Disease (ESRD): No Hx Thyroid Disease: No Hx Human Immunodeficiency Virus (HIV): Yes (on atripla ) Hx Hepatitis C: Yes (Diagnosed approx. 6 years ago. No treatment yet.) Hx Depression: No (Denies depression, suicide or violent ideation) Hx Suicide Attempt: No Hx Bipolar Disorder: No Hx Schizophrenia: Yes (Denies tx) - Patient Surgical History Past Surgical History: Yes Hx Neurologic Surgery: No Hx Cataract Extraction: No Hx Cardiac Surgery: No Hx Lung Surgery: No Hx Breast Surgery: No Hx Breast Biopsy: No Hx Abdominal Surgery: No Hx Appendectomy: No Hx Cholecystectomy: No Hx Genitourinary Surgery: No Hx Section: No Hx Orthopedic Surgery: No Hx Hysterectomy: No Other Surgical History: Tubal ligation, approx. 20 years ago. Anesthesia Reaction: No - PPD History Previous Implant?: Yes Documented Results: Positive w/o proof Results: CXR (-)12/2016 PPD to be Administered?: No - Reproductive History Patient is a Female of Child Bearing Age (11 -55 yrs old): No Last Menstrual Period: 05/27/94 Patient : No - Smoking Cessation Smoking history: Current every day smoker Have you smoked in the past 12 months: Yes Aproximately how many cigarettes per day: 20 Cigars Per Day: 0 Hx Chewing Tobacco Use: No Initiated information on smoking cessation: Yes 'Breaking Loose' booklet given: 09/06/17 - Substance & Tx. History Hx Alcohol Use: Yes Hx Substance Use: Yes Substance Use Type: Alcohol, Cocaine, Heroin, Tranquilizers - Substances Abused Heroin Route: Inhalation Frequency: Daily Amount used: 10 bags Age of first use: 13 Date of Last Use: 09/05/17 Crack Route: Smoking Frequency: Daily Amount used: $100 Age of first use: 15 Date of Last Use: 09/05/17 Alcohol-vodka/beer Route: Oral Frequency: Daily Amount used: fifth/3-6 pks. Age of first use: 9 Date of Last Use: 09/05/17 Xanax Route: Oral Frequency: Daily Amount used: 4 mg. Age of first use: 53 Date of Last Use: 09/05/17 Family Disease History - Family Disease History Family Disease History: Heart Disease: Mother (.), Respiratory: Sister ( Asthma; .), Other: Father (, AIDS.) Admission Physical Exam [facility] - Vital Signs Vital Signs: Vital Signs - 24 hr 09/06/17 16:51 Temperature 97.2 F L Pulse Rate 106 H Respiratory 18 Rate Blood Pressure 118/65 - Physical General Appearance: Yes: Moderate Distress, Tremorous, Irritable, Sweating, Anxious HEENTM: Yes: Hearing grossly Normal, Normocephalic, FARTUN, Other (bilateral franco circcle around iris (arcus senilis); no teeth) Respiratory: Yes: Lungs Clear, Normal Breath Sounds Neck: Yes: No masses,lesions,Nodules, Supple Breast: Yes: Breast Exam Deferred Cardiology: Yes: Regular Rhythm, Regular Rate, S1, S2 Abdominal: Yes: Normal Bowel Sounds, Non Tender, Flat, Soft Genitourinary: Yes: Within Normal Limits Back: Yes: Normal Inspection Musculoskeletal: Yes: full range of Motion, Gait Steady Extremities: Yes: Normal Capillary Refill, Normal Inspection, Tremors (stanley tremors hands, shaking legs) Neurological: Yes: Fully Oriented, Motor Strength 5/5 Integumentary: Yes: Dry (Dry skin and mucous membranes), Track Casey (elevated, dark thickened lesions arms, chest) Lymphatic: Yes: Within Normal Limits - Diagnostic (1) Dehydration Current Visit: Yes Status: Acute (2) Alcohol dependence with uncomplicated withdrawal Current Visit: Yes Status: Acute (3) Nicotine dependence Current Visit: Yes Status: Acute Qualifiers: Nicotine product type: cigarettes Substance use status: in withdrawal Qualified Code(s): F17.213 - Nicotine dependence, cigarettes, with withdrawal (4) Opioid dependence with withdrawal Current Visit: Yes Status: Acute (5) Asthma Current Visit: No Status: Chronic Qualifiers: Asthma severity: mild Asthma persistence: unspecified Asthma complication type: uncomplicated Qualified Code(s): J45.909 - Unspecified asthma, uncomplicated (6) Cocaine dependence, uncomplicated Current Visit: Yes Status: Chronic (7) HIV (human immunodeficiency virus infection) Current Visit: Yes Status: Chronic Comment: Takes Atripla. (8) Anxiolytic withdrawal without complication Current Visit: Yes Status: Acute Cleared for Admission S - Detox or Rehab [facility] Level of Care: Medically Managed Detox Regimen/Protocol: Methadone/Valium BHS Breath Alcohol Content Breath Alcohol Content: 0 Urine Pregancy Test - Result Urine Test Results: Negative- NO Line Present Urine Drug Screen - Results Drug Screen Negative: No Urine Drug Screen Results: ARANZA-Cocaine, OPI-Opiates, BZO-Benzodiazepines, TCA- Tricyclic Antidepress
[2017-09-06] MEDS ORDERED: guaiFENesin/D-METHORPHAN HB 10 ML UNIT-DOSE CUPS PO PRN (19:21)
[2017-09-06] MEDS ORDERED: LOPERAMIDE HCL 2 MG CAPSULE PO PRN (19:21)
[2017-09-06] MEDS ORDERED: MAG HYDROX/AL HYDROX/SIMETH 30 ML UNIT-DOSE CUP PO PRN (19:21)
[2017-09-06] MEDS ORDERED: MENTHOL/PHENOL 1 EACH UD MM PRN (19:21)
[2017-09-06] MEDS ORDERED: METHADONE HCL 10 MG TABLET (FOR DETOX USE ONLY) PO ONE ×2 (19:21→23:00)
[2017-09-06] MEDS ORDERED: MAGNESIUM HYDROX 2400MG/30ML ORAL SUSPENSION 30 ML CUP PO PRN (19:21)
[2017-09-06] MEDS ORDERED: MAGNESIUM CITRATE 300 ML BOTTLE PO PRN (19:21)
[2017-09-06] MEDS ORDERED: P-EPHED 60MG/TRIPROLIDI 2.5MG TABLET PO PRN (19:21)
[2017-09-06] MEDS ORDERED: IBUPROFEN 400 MG TABLET (FP) PO PRN (19:21)
[2017-09-06] MEDS ORDERED: ACETAMINOPHEN 325 MG TABLET (FP) PO PRN (19:41)
[2017-09-06] MEDS ORDERED: ALBUTEROL SO4 18 GM HFA INHALER IH PRN (19:41)
[2017-09-06] MEDS ORDERED: NICOTINE POLACRILEX 2 MG GUM BUC PRN (19:45)
[2017-09-06] MEDS ORDERED: diazePAM 5 MG TABLET PO ONE (19:45)
[2017-09-06] MEDS ORDERED: MELATONIN 5 MG TABLETS PO PRN (22:00)
[2017-09-06] MEDS: diazePAM 5 MG TABLET PO SCH (22:21)
[2017-09-06] MEDS: THIAMINE HCL 100 MG TABLET (FP) PO SCH (22:21)
[2017-09-06 22:59] LABS: URINE APPEARANCE CLEAR; URINE BILIRUBIN NEGATIVE (<2.0 mg/dL); URINE COLOR YELLOW; URINE GLUCOSE (UA) NEGATIVE (NEGATIVE); URINE KETONE NEGATIVE (NEGATIVE); URINE LEUK ESTERASE NEGATIVE (NEGATIVE); URINE NITRITE NEGATIVE (NEGATIVE); URINE PROTEIN NEGATIVE (NEGATIVE); URINE UROBILINOGEN 4.0 E.U/dl mg/dL (0.2-1.0)
[2017-09-07] MEDS: diazePAM 5 MG TABLET PO PRN ×3 (01:37→16:30)
[2017-09-07] MEDS: diazePAM 5 MG TABLET PO SCH ×3 (05:45→22:06)
--- NOTE | 2017-09-07 09:31 | CONSULT ---
[facility] Psychiatric Consult - Data Date of interview: 09/07/17 Admission source: [facility] Identifying data: Patient is a 57 year single female, domiciled, mother of three , unemployed and supported by public assistance. This is one of multiple admissions for patient. Pt. admitted to for alcohol, cocaine, opiate, and benzodiazepine dependence. Substance Abuse History: Following information confirmed with Ms. Gonzalez: - Smoking Cessation. Smoking history: Current every day smoker. Have you smoked in the past 12 months: Yes. Aproximately how many cigarettes per day: 20. Cigars Per Day: 0. Hx Chewing Tobacco Use: No. Initiated information on smoking cessation: Yes. 'Breaking Loose' booklet given: 09/06/17. - Substance & Tx. History. Hx Alcohol Use: Yes. Hx Substance Use: Yes. Substance Use Type : Alcohol, Cocaine, Heroin, Tranquilizers. - Substances Abused. Heroin. Route: Inhalation. Frequency: Daily. Amount used: 10 bags. Age of first use: 13. Date of Last Use: 09/05/17. Crack. Route: Smoking. Frequency: Daily. Amount used: $100. Age of first use: 15. Date of Last Use: 09/05/17. Alcohol-vodka/beer. Route: Oral. Frequency: Daily. Amount used: fifth/3-6 pks. Age of first use: 9. Date of Last Use: 09/05/17. Xanax. Route: Oral. Frequency: Daily. Amount used: 4 mg. Age of first use: 53. Date of Last Use: 09/05/17 Medical History: Asthma, Hep C, tubal ligation approximately 20 years ago. Psychiatric History: Patient with a diagnosis of schizophrenia. Reports four psychiatric hospitalizations most recently in 2014 at [facility]. Pt. is also known to [facility]. Pt. reports nonadherence to medications and outpatient care. Reports h/o accepting haldol deconate but has not received injection "in many months." No psychosis noted. Pt. reports feeling fine and refuses to accept psychotrophic medications. Pt. denies h/o suicide attempt. Pt. denies suicidal and homicidal ideation. Physical/Sexual Abuse/Trauma History: Denies. Mental Status Exam - Mental Status Exam Alert and Oriented to: Time, Place, Person Cognitive Function: Good Patient Appearance: Well Groomed Mood: Hopeful Affect: Mood Congruent Patient Behavior: Guarded, Appropriate, Cooperative Speech Pattern: Appropriate Voice Loudness: Normal Thought Process: Goal Oriented Thought Disorder: Not Present Hallucinations: Denies Suicidal Ideation: Denies Homicidal Ideation: Denies Insight/Judgement: Poor Sleep: Poorly Appetite: Fair Muscle strength/Tone: Normal Gait/Station: Normal Psychiatric Findings - Problem List (Pollock 1, 2,3) (1) Alcohol dependence with uncomplicated withdrawal Current Visit: Yes Status: Acute (2) Nicotine dependence Current Visit: Yes Status: Acute Qualifiers: Nicotine product type: cigarettes Substance use status: in withdrawal Qualified Code(s): F17.213 - Nicotine dependence, cigarettes, with withdrawal (3) Opioid dependence with withdrawal Current Visit: Yes Status: Acute (4) Sedative, hypnotic or anxiolytic dependence with withdrawal, uncomplicated Current Visit: Yes Status: Acute (5) Substance-induced sleep disorder Current Visit: Yes Status: Acute (6) Schizophrenia Current Visit: Yes Status: Chronic Qualifiers: Schizophrenia type: paranoid schizophrenia Qualified Code(s): F20.0 - Paranoid schizophrenia Comment: Self reports. - Initial Treatment Plan Initial Treatment Plan: Psychoeducation provided. Detoxification in progress. Patient made aware of the risk of psychosis, delusions, auditory and visual hallucinatins when not accepting medications for schizophrenia. No psychosis noted. Ambien 10mg qhs prn ordered for insomnia. Benefits and side effects discussed. Pt. made aware of the risk of parasomnia. Verbal consent given. Will continue to monitor.
[2017-09-07] MEDS ORDERED: METHADONE HCL 10 MG TABLET (FOR DETOX USE ONLY) PO SCH (10:00)
[2017-09-07] MEDS ORDERED: PATIENT'S OWN MEDICATION (NON-FORMULARY) (Efavirenz/Emtricitab/Tenofovir 1 TAB) PO SCH (10:00)
[2017-09-07] MEDS: EFAVIRENZ 600 MG TABLET PO SCH (10:15)
[2017-09-07] MEDS: PRENATAL VITAMINS W/ FOLIC ACID TABLET (FP) PO SCH (10:15)
[2017-09-07 10:16] LABS: HEMATOCRIT 35.8 % (32.4-45.2); HEMOGLOBIN 12.5 GM/dL (10.7-15.3); MCH 34.6 pg (25.7-33.7); MCHC 34.8 g/dl (32.0-36.0); MEAN CELL VOLUME 99.5 fl (80-96); MEAN PLT VOLUME 8.7 fl (7.5-11.1); PLATELET COUNT 182 K/MM3 (134-434); RDW 13.6 % (11.6-15.6); WHITE BLOOD COUNT 3.6 K/mm3 (4.0-10.0)
[2017-09-07] MEDS: NICOTINE 21 MG/24 HOURS TOPICAL PATCH TD SCH (10:16)
[2017-09-07 10:24] LABS: CHLORIDE 106 mmol/L (98-107); POTASSIUM 3.8 mmol/L (3.5-5.1); SODIUM 140 mmol/L (136-145)
[2017-09-07 10:41] LABS: ALK PHOS 107 U/L (45-117); ANION GAP 9 (8-16); BILIRUBIN,TOTAL 0.3 mg/dL (0.2-1.0); BLOOD UREA NITROGEN 19 mg/dL (7-18); CALCIUM 8.1 mg/dL (8.5-10.1); CO2 25 mmol/L (21-32); CREATININE 0.8 mg/dL (0.55-1.02); GLUCOSE,RANDOM 86 mg/dL (74-106); SGOT/AST 15 U/L (15-37); SGPT/ALT 13 U/L (12-78); TOT PROT 7.2 g/dl (6.4-8.2)
[2017-09-07] MEDS: EMTRICITABINE 200MG/TENOFOVIR 300MG PO SCH (11:06)
--- NOTE | 2017-09-07 11:57 | PN ---
[facility] CIWA - CIWA Score Nausea/Vomitin-Mild Nausea/No Vomiting Muscle Tremors: 4-Moderate,w/Arms Extend Anxiety: 4-Mod. Anxious/Guarded Agitation: 4-Moderately Restless Paroxysmal Sweats: 1-Minimal Palms Moist Orientation: 0-Oriented Tacttile Disturbances: 1-Very Mild Itch/Numbness Auditory Disturbances: 0-None Visual Disturbances: 0-None Headache: 0-None Present CIWA-Ar Total Score: 15 BHS COWS - Scale Resting Pulse: 0= [place] 80 or Below Sweatin= Chills/Flushing Restless Observation: 3= Extraneous Movement Pupil Size: 0= Normal to Room Light Bone or Joint Aches: 2= Severe Diffuse Aches Runny Nose/ Eye Tearin= Runny Nose/Eyes GI Upset > 30mins: 2= Nausea/Diarrhea Tremor Observation of Outstretched Hands: 2= Slight Tremor Visible Yawning Observation: 2= >3x During Session Anxiety or Irritability: 2=Irritable/Anxious Goose Flesh Skin: 0=Smooth Skin COWS Score: 16 [facility] Progress Note (SOAP) Subjective: body ache sweat tremor trouble sleep at night Objective: 09/07/17 12:00 Vital Signs Temperature 97.9 F 09/07/17 09:00 Pulse Rate 79 09/07/17 09:00 Respiratory Rate 16 09/07/17 09:00 Blood Pressure 121/59 09/07/17 09:00 O2 Sat by Pulse Oximetry (%) Laboratory Last Values WBC 3.6 K/mm3 (4.0-10.0) L 09/07/17 07:00 RBC 3.60 M/mm3 (3.60-5.2) 09/07/17 07:00 Hgb 12.5 GM/dL (10.7-15.3) D 09/07/17 07:00 Hct 35.8 % (32.4-45.2) 09/07/17 07:00 MCV 99.5 fl (80-96) H 09/07/17 07:00 MCH 34.6 pg (25.7-33.7) H 09/07/17 07:00 MCHC 34.8 g/dl (32.0-36.0) 09/07/17 07:00 RDW 13.6 % (11.6-15.6) 09/07/17 07:00 Plt Count 182 K/MM3 (134-434) 09/07/17 07:00 MPV 8.7 fl (7.5-11.1) D 09/07/17 07:00 Sodium 140 mmol/L (136-145) 09/07/17 07:00 Potassium 3.8 mmol/L (3.5-5.1) 09/07/17 07:00 Chloride 106 mmol/L (98-107) 09/07/17 07:00 Carbon Dioxide 25 mmol/L (21-32) 09/07/17 07:00 Anion Gap 9 (8-16) 09/07/17 07:00 BUN 19 mg/dL (7-18) H 09/07/17 07:00 Creatinine 0.8 mg/dL (0.55-1.02) 09/07/17 07:00 Creat Clearance w eGFR > 60 (>60) 09/07/17 07:00 Random Glucose 86 mg/dL (74-106) 09/07/17 07:00 Calcium 8.1 mg/dL (8.5-10.1) L 09/07/17 07:00 Total Bilirubin 0.3 mg/dL (0.2-1.0) D 09/07/17 07:00 AST 15 U/L (15-37) 09/07/17 07:00 ALT 13 U/L (12-78) 09/07/17 07:00 Alkaline Phosphatase 107 U/L (45-117) 09/07/17 07:00 Total Protein 7.2 g/dl (6.4-8.2) 09/07/17 07:00 Albumin 3.0 g/dl (3.4-5.0) L 09/07/17 07:00 Urine Color Yellow 09/06/17 22:49 Urine Appearance Clear 09/06/17 22:49 Urine pH 7.0 (5.0-8.0) 09/06/17 22:49 Ur Specific Hamill 1.019 (1.001-1.035) 09/06/17 22:49 Urine Protein Negative (NEGATIVE) 09/06/17 22:49 Urine Glucose (UA) Negative (NEGATIVE) 09/06/17 22:49 Urine Ketones Negative (NEGATIVE) 09/06/17 22:49 Urine Blood Negative (NEGATIVE) 09/06/17 22:49 Urine Nitrite Negative (NEGATIVE) 09/06/17 22:49 Urine Bilirubin Negative (<2.0 mg/dL) 09/06/17 22:49 Urine Urobilinogen 4.0 e.u/dl mg/dL (0.2-1.0) H 09/06/17 22:49 Ur Leukocyte Esterase Negative (NEGATIVE) 09/06/17 22:49 RPR Titer Nonreactive (NONREACTIVE) 09/07/17 07:00 lab noted Assessment: 09/07/17 12:00 withdrawal sx Plan: continue detox
--- NOTE | 2017-09-07 12:01 | EKG ---
Test Reason : Blood Pressure : / mmHG Vent. Rate : 055 BPM Atrial Rate : 055 BPM P-R Int : 140 ms QRS Dur : 096 ms QT Int : 434 ms P-R-T Axes : 054 074 060 degrees QTc Int : 415 ms SINUS BRADYCARDIA OTHERWISE NORMAL ECG WHEN COMPARED WITH ECG OF 03-AUG-2017 15:07, NO SIGNIFICANT CHANGE WAS FOUND Confirmed by MD ALFRED, SERGIO ([id number]) on 09/07/2017 12:00:41 PM Referred By: Confirmed By:SERGIO SIMON MD
[2017-09-07] MEDS ORDERED: COLLOIDAL OATMEAL 1 BAR EACH TP PRN (12:46)
[2017-09-07] MEDS: ZOLPIDEM TARTRATE 10 MG TABLET (PARK CARE ONLY) PO PRN (22:06)
[2017-09-07] MEDS: THIAMINE HCL 100 MG TABLET (FP) PO SCH (22:06)
[2017-09-08] MEDS: diazePAM 5 MG TABLET PO PRN ×4 (05:31→19:10)
[2017-09-08] MEDS: hydrOXYzine PAMOATE 50 MG CAPSULE (FP) PO PRN ×2 (07:09→15:27)
[2017-09-08] MEDS: PRENATAL VITAMINS W/ FOLIC ACID TABLET (FP) PO SCH (09:33)
[2017-09-08] MEDS: EFAVIRENZ 600 MG TABLET PO SCH (09:33)
[2017-09-08] MEDS: BACLOFEN 10 MG TABLET (FP) PO PRN ×2 (09:34→22:10)
[2017-09-08] MEDS: EMTRICITABINE 200MG/TENOFOVIR 300MG PO SCH (09:34)
[2017-09-08] MEDS: NICOTINE 21 MG/24 HOURS TOPICAL PATCH TD SCH (09:35)
[2017-09-08] MEDS ORDERED: METHADONE HCL 5 MG TABLET (FOR DETOX USE ONLY) PO SCH (10:00)
[2017-09-08] MEDS: diazePAM 5 MG TABLET PO SCH ×2 (11:05→22:10)
--- NOTE | 2017-09-08 11:49 | PN ---
[facility] CIWA - CIWA Score Nausea/Vomitin-Mild Nausea/No Vomiting Muscle Tremors: 3 Anxiety: 3 Agitation: 3 Paroxysmal Sweats: 1-Minimal Palms Moist Orientation: 0-Oriented Tacttile Disturbances: 1-Very Mild Itch/Numbness Auditory Disturbances: 0-None Visual Disturbances: 0-None Headache: 0-None Present CIWA-Ar Total Score: 12 BHS COWS - Scale Resting Pulse: 0= [place] 80 or Below Sweatin= Chills/Flushing Restless Observation: 1= Difficult to Sit Still Pupil Size: 0= Normal to Room Light Bone or Joint Aches: 1= Mild Discomfort Runny Nose/ Eye Tearin= Nasal Congestion GI Upset > 30mins: 2= Nausea/Diarrhea Tremor Observation of Outstretched Hands: 2= Slight Tremor Visible Yawning Observation: 2= >3x During Session Anxiety or Irritability: 2=Irritable/Anxious Goose Flesh Skin: 0=Smooth Skin COWS Score: 12 [facility] Progress Note (SOAP) Subjective: joint pain body ache sweat tremor anxiety restlessness Objective: 09/08/17 12:00 Vital Signs Temperature 97.6 F 09/08/17 10:24 Pulse Rate 77 09/08/17 10:24 Respiratory Rate 20 09/08/17 10:24 Blood Pressure 104/70 09/08/17 10:24 O2 Sat by Pulse Oximetry (%) Laboratory Last Values WBC 3.6 K/mm3 (4.0-10.0) L 09/07/17 07:00 RBC 3.60 M/mm3 (3.60-5.2) 09/07/17 07:00 Hgb 12.5 GM/dL (10.7-15.3) D 09/07/17 07:00 Hct 35.8 % (32.4-45.2) 09/07/17 07:00 MCV 99.5 fl (80-96) H 09/07/17 07:00 MCH 34.6 pg (25.7-33.7) H 09/07/17 07:00 MCHC 34.8 g/dl (32.0-36.0) 09/07/17 07:00 RDW 13.6 % (11.6-15.6) 09/07/17 07:00 Plt Count 182 K/MM3 (134-434) 09/07/17 07:00 MPV 8.7 fl (7.5-11.1) D 09/07/17 07:00 Sodium 140 mmol/L (136-145) 09/07/17 07:00 Potassium 3.8 mmol/L (3.5-5.1) 09/07/17 07:00 Chloride 106 mmol/L (98-107) 09/07/17 07:00 Carbon Dioxide 25 mmol/L (21-32) 09/07/17 07:00 Anion Gap 9 (8-16) 09/07/17 07:00 BUN 19 mg/dL (7-18) H 09/07/17 07:00 Creatinine 0.8 mg/dL (0.55-1.02) 09/07/17 07:00 Creat Clearance w eGFR > 60 (>60) 09/07/17 07:00 Random Glucose 86 mg/dL (74-106) 09/07/17 07:00 Calcium 8.1 mg/dL (8.5-10.1) L 09/07/17 07:00 Total Bilirubin 0.3 mg/dL (0.2-1.0) D 09/07/17 07:00 AST 15 U/L (15-37) 09/07/17 07:00 ALT 13 U/L (12-78) 09/07/17 07:00 Alkaline Phosphatase 107 U/L (45-117) 09/07/17 07:00 Total Protein 7.2 g/dl (6.4-8.2) 09/07/17 07:00 Albumin 3.0 g/dl (3.4-5.0) L 09/07/17 07:00 Urine Color Yellow 09/06/17 22:49 Urine Appearance Clear 09/06/17 22:49 Urine pH 7.0 (5.0-8.0) 09/06/17 22:49 Ur Specific [place] 1.019 (1.001-1.035) 09/06/17 22:49 Urine Protein Negative (NEGATIVE) 09/06/17 22:49 Urine Glucose (UA) Negative (NEGATIVE) 09/06/17 22:49 Urine Ketones Negative (NEGATIVE) 09/06/17 22:49 Urine Blood Negative (NEGATIVE) 09/06/17 22:49 Urine Nitrite Negative (NEGATIVE) 09/06/17 22:49 Urine Bilirubin Negative (<2.0 mg/dL) 09/06/17 22:49 Urine Urobilinogen 4.0 e.u/dl mg/dL (0.2-1.0) H 09/06/17 22:49 Ur Leukocyte Esterase Negative (NEGATIVE) 09/06/17 22:49 RPR Titer Nonreactive (NONREACTIVE) 09/07/17 07:00 lab noted Assessment: 09/08/17 12:00 withdrawal sx Plan: continue detox
--- NOTE | 2017-09-08 12:06 | PN ---
[facility] Progress Note Note: patient insists to receive her xanax that her prescribed for her health teaching on addiction and the mission and goals of detox
[2017-09-08] MEDS ORDERED: HYDROCORTISONE 1% TOPICAL CREAM 30 GM TUBE TP PRN (13:42)
--- NOTE | 2017-09-08 15:53 | PN ---
Psychiatric Progress Note Vital Signs: Vital Signs Period Temp Pulse Resp BP Sys/Franco Pulse Ox Last 24 Hr 97.6 F-98.2 F 73-85 18-20 86-121/59-77 Date of Session: 09/08/17 Chief Complaint:: " I need some medications to help me sleep at night". HPI: Unremarkable course of treatment except for complaint of refractory insomnia. ROS: Patient is alert and fully oriented.Ambulatory.Visible on unit.Easily redirectable. Current Medications: Active Medications Generic Name Dose Route Start Last Admin Trade Name Freq PRN Reason Stop Dose Admin Acetaminophen 650 mg 09/06/17 19:41 Tylenol - PO Q4H PRN FEVER Al Hydroxide/Mg Hydroxide 30 ml 09/06/17 19:21 Mylanta Oral Suspension - PO Q6H PRN DYSPEPSIA Albuterol Sulfate 2 puff 09/06/17 19:41 Ventolin Hfa Inhaler - IH Q4H PRN WHEEZING Baclofen 10 mg 09/08/17 09:21 09/08/17 09:34 Lioresal - PO 10 mg TID PRN Administration BACK PAIN Colloidal Oatmeal 1 applic 09/07/17 12:46 09/07/17 14:14 Aveeno Soap - TP 1 applic DAILY PRN Administration HYGEINE Diazepam 5 mg 09/08/17 10:00 09/08/17 11:05 Valium - PO 09/09/17 22:01 5 mg BID SILVANA Administration Diazepam 5 mg 09/10/17 10:00 Valium - PO 09/10/17 10:01 DAILY SILVANA Diazepam 10 mg 09/06/17 19:42 09/08/17 13:25 Valium - PO 09/09/17 19:41 10 mg Q4H PRN Administration WITHDRAWAL(CONT SUBST) Efavirenz 600 mg 09/07/17 10:00 09/08/17 09:33 Sustiva - PO 600 mg DAILY SILVANA Administration Emtricitabine/Tenofovir 1 tab 09/07/17 10:00 09/08/17 09:34 Truvada PO 1 tab DAILY SILVANA Administration Eucalyptus/Menthol/Phenol/Sorbitol 1 each 09/06/17 19:21 Cepastat Lozenge - MM Q4H PRN SORE THROAT Guaifenesin 10 ml 09/06/17 19:21 Robitussin Dm - PO Q6H PRN COUGH Hydrocortisone 1 applic 09/08/17 13:42 09/08/17 15:26 Hytone 1% Cream - TP 1 applic QID PRN Administration DRY SKIN Hydroxyzine Pamoate 50 mg 09/06/17 19:42 09/08/17 15:27 Vistaril - PO 50 mg Q4H PRN Administration AGITATION Ibuprofen 400 mg 09/06/17 19:21 Motrin - PO Q6H PRN PAIN LEVEL 4-6 Loperamide HCl 4 mg 09/06/17 19:21 Imodium - PO Q6H PRN DIARRHEA Magnesium Citrate 300 ml 09/06/17 19:21 Citroma - PO Q48H PRN CONSTIPATION Magnesium Hydroxide 30 ml 09/06/17 19:21 Milk Of Magnesia - PO DAILY PRN CONSTIPATION Methadone HCl 5 mg 09/10/17 06:00 Dolophine - PO 09/10/17 06:01 DAILY@0600 SILVANA Methadone HCl 10 mg 09/09/17 10:00 Dolophine - PO 09/09/17 10:01 DAILY SILVANA Nicotine 21 mg 09/07/17 10:00 09/08/17 09:35 Nicoderm Patch - TD Not Given DAILY SILVANA Nicotine Polacrilex 2 mg 09/06/17 19:45 Nicorette Gum - BUC Q2H PRN NICOTINE REPLACEMENT RX Multivit/Folic Acid/Iron 1 tab 09/07/17 10:00 09/08/17 09:33 Vitamins (Sjr) - PO 1 tab DAILY SILVANA Administration Pseudoephedrine/Triprolidine 1 combo 09/06/17 19:21 Actifed - PO TID PRN NASAL CONGESTION Thiamine HCl 100 mg 09/06/17 22:00 09/07/17 22:06 Vitamin B1 - PO 100 mg HS SILVANA Administration Zolpidem Tartrate 10 mg 09/07/17 22:00 09/07/17 22:06 Ambien - PO 09/10/17 21:59 10 mg HS PRN Administration INSOMNIA Medication(s) Change(s): Yes. Added to the regimen : Seroquel 50 mg po hs. Side effects/benefits discussed with the patient.Ms Gonzalez is in agreement with this plan of care. Current Side Effect: No Lab tests ordered: No Lab tests reviewed: Yes Provider note:: Chart reviewed.hairspring vibrator Missy's note is read and appreciaited.patient is already known to this leader writer.Met with the patient.Complaint validated.Ms Gonzalez is made aware of the virtues of sleep hygiene and presented with a selection of hypnotic drugs.She expressed her preferebce for quetiapine (low dose).Side effects/benefits discussed.The patient agrees to take 50 mg of seroquel at bedtime.Stable mental status.Adherent to this detoxification regimen.Will follow. Total face to face time:: 25 Mental Status Exam - Mental Status Exam Alert and Oriented to: Time, Place, Person Cognitive Function: Good Patient Appearance: Well Groomed (thin habitus) Mood: Anxious, Irritable Affect: Mood Congruent Patient Behavior: Fatigued, Talkative, Cooperative Speech Pattern: Clear Voice Loudness: Normal Thought Process: Goal Oriented Thought Disorder: Not Present Hallucinations: Denies Suicidal Ideation: Denies Homicidal Ideation: Denies Insight/Judgement: Poor Sleep: Poorly, Difficulty falling asleep Appetite: Good Muscle strength/Tone: Normal Gait/Station: Normal Psychiatric Treatment Plan - Problem List (1) Insomnia Current Visit: Yes (2) Opioid dependence with withdrawal Current Visit: Yes (3) Alcohol dependence with uncomplicated withdrawal Current Visit: Yes (4) Anxiolytic withdrawal without complication Current Visit: Yes (5) Nicotine dependence Current Visit: Yes Qualifiers: Nicotine product type: cigarettes Substance use status: in withdrawal Qualified Code(s): F17.213 - Nicotine dependence, cigarettes, with withdrawal (6) Substance induced mood disorder Current Visit: Yes (7) Schizophrenia Current Visit: Yes Qualifiers: Schizophrenia type: paranoid schizophrenia Qualified Code(s): F20.0 - Paranoid schizophrenia Comment: Self reports.
[2017-09-08] MEDS: QUEtiapine FUMARATE 50 MG TABLET PO SCH (22:10)
[2017-09-08] MEDS: THIAMINE HCL 100 MG TABLET (FP) PO SCH (22:11)
[2017-09-08] MEDS: ZOLPIDEM TARTRATE 10 MG TABLET (PARK CARE ONLY) PO PRN (22:12)
[2017-09-09] MEDS ORDERED: METHADONE HCL 10 MG TABLET (FOR DETOX USE ONLY) PO SCH (10:00)
[2017-09-09] MEDS: EFAVIRENZ 600 MG TABLET PO SCH (10:07)
[2017-09-09] MEDS: EMTRICITABINE 200MG/TENOFOVIR 300MG PO SCH (10:07)
[2017-09-09] MEDS: NICOTINE 21 MG/24 HOURS TOPICAL PATCH TD SCH (10:08)
[2017-09-09] MEDS: diazePAM 5 MG TABLET PO SCH ×2 (10:08→22:07)
[2017-09-09] MEDS: PRENATAL VITAMINS W/ FOLIC ACID TABLET (FP) PO SCH (11:12)
--- NOTE | 2017-09-09 11:25 | PN ---
[facility] Progress Note (SOAP) Subjective: feeling better alert oriented x 3 no acute distress no tremor denies body aches Objective: 09/09/17 11:23 Vital Signs Temperature 97.7 F 09/09/17 10:22 Pulse Rate 77 09/09/17 10:22 Respiratory Rate 18 09/09/17 10:22 Blood Pressure 111/58 09/09/17 10:22 O2 Sat by Pulse Oximetry (%) Laboratory Last Values WBC 3.6 K/mm3 (4.0-10.0) L 09/07/17 07:00 RBC 3.60 M/mm3 (3.60-5.2) 09/07/17 07:00 Hgb 12.5 GM/dL (10.7-15.3) D 09/07/17 07:00 Hct 35.8 % (32.4-45.2) 09/07/17 07:00 MCV 99.5 fl (80-96) H 09/07/17 07:00 MCH 34.6 pg (25.7-33.7) H 09/07/17 07:00 MCHC 34.8 g/dl (32.0-36.0) 09/07/17 07:00 RDW 13.6 % (11.6-15.6) 09/07/17 07:00 Plt Count 182 K/MM3 (134-434) 09/07/17 07:00 MPV 8.7 fl (7.5-11.1) D 09/07/17 07:00 Sodium 140 mmol/L (136-145) 09/07/17 07:00 Potassium 3.8 mmol/L (3.5-5.1) 09/07/17 07:00 Chloride 106 mmol/L (98-107) 09/07/17 07:00 Carbon Dioxide 25 mmol/L (21-32) 09/07/17 07:00 Anion Gap 9 (8-16) 09/07/17 07:00 BUN 19 mg/dL (7-18) H 09/07/17 07:00 Creatinine 0.8 mg/dL (0.55-1.02) 09/07/17 07:00 Creat Clearance w eGFR > 60 (>60) 09/07/17 07:00 Random Glucose 86 mg/dL (74-106) 09/07/17 07:00 Calcium 8.1 mg/dL (8.5-10.1) L 09/07/17 07:00 Total Bilirubin 0.3 mg/dL (0.2-1.0) D 09/07/17 07:00 AST 15 U/L (15-37) 09/07/17 07:00 ALT 13 U/L (12-78) 09/07/17 07:00 Alkaline Phosphatase 107 U/L (45-117) 09/07/17 07:00 Total Protein 7.2 g/dl (6.4-8.2) 09/07/17 07:00 Albumin 3.0 g/dl (3.4-5.0) L 09/07/17 07:00 Urine Color Yellow 09/06/17 22:49 Urine Appearance Clear 09/06/17 22:49 Urine pH 7.0 (5.0-8.0) 09/06/17 22:49 Ur Specific [place] 1.019 (1.001-1.035) 09/06/17 22:49 Urine Protein Negative (NEGATIVE) 09/06/17 22:49 Urine Glucose (UA) Negative (NEGATIVE) 09/06/17 22:49 Urine Ketones Negative (NEGATIVE) 09/06/17 22:49 Urine Blood Negative (NEGATIVE) 09/06/17 22:49 Urine Nitrite Negative (NEGATIVE) 09/06/17 22:49 Urine Bilirubin Negative (<2.0 mg/dL) 09/06/17 22:49 Urine Urobilinogen 4.0 e.u/dl mg/dL (0.2-1.0) H 09/06/17 22:49 Ur Leukocyte Esterase Negative (NEGATIVE) 09/06/17 22:49 RPR Titer Nonreactive (NONREACTIVE) 09/07/17 07:00 lab noted Assessment: 09/09/17 11:23 mild withdrawl sx Plan: medically supervised detox can be discharged 09/10/17
[2017-09-09] MEDS: hydrOXYzine PAMOATE 50 MG CAPSULE (FP) PO PRN (11:37)
[2017-09-09] MEDS: diazePAM 5 MG TABLET PO PRN ×2 (13:00→17:07)
[2017-09-09] MEDS: THIAMINE HCL 100 MG TABLET (FP) PO SCH (22:06)
[2017-09-09] MEDS: QUEtiapine FUMARATE 50 MG TABLET PO SCH (22:07)
[2017-09-09] MEDS: ZOLPIDEM TARTRATE 10 MG TABLET (PARK CARE ONLY) PO PRN (22:07)
[2017-09-09] MEDS: BACLOFEN 10 MG TABLET (FP) PO PRN (22:08)
[2017-09-10] MEDS ORDERED: METHADONE HCL 5 MG TABLET (FOR DETOX USE ONLY) PO SCH (06:00)
--- NOTE | 2017-09-10 08:31 | DS ---
[facility] Detox Discharge Summary Admission Date: 09/06/17 Discharge Date: 09/10/17 - History Present History: Alcohol Dependence, Opioid Dependence Additional Comments: 57 years old female admitted on 09/06/17 for alcohol and opioid withdrawal sx completed detox regimen tolerated well denies alcohol and opioid withdrawal sx alert oriented x 3 speech coherent agrees aftercare [facility] for addiction patient agrees follow up with infectious disease care provider - Physical Exam Results Vital Signs: Vital Signs Temperature 97.9 F 09/10/17 06:14 Pulse Rate 72 09/10/17 06:14 Respiratory Rate 16 09/10/17 06:14 Blood Pressure 107/62 09/10/17 06:14 O2 Sat by Pulse Oximetry (%) Pertinent Admission Physical Exam Findings: withdrawal sx Vital Signs Temperature 97.9 F 09/10/17 06:14 Pulse Rate 72 09/10/17 06:14 Respiratory Rate 16 09/10/17 06:14 Blood Pressure 107/62 09/10/17 06:14 O2 Sat by Pulse Oximetry (%) Laboratory Last Values WBC 3.6 K/mm3 (4.0-10.0) L 09/07/17 07:00 RBC 3.60 M/mm3 (3.60-5.2) 09/07/17 07:00 Hgb 12.5 GM/dL (10.7-15.3) D 09/07/17 07:00 Hct 35.8 % (32.4-45.2) 09/07/17 07:00 MCV 99.5 fl (80-96) H 09/07/17 07:00 MCH 34.6 pg (25.7-33.7) H 09/07/17 07:00 MCHC 34.8 g/dl (32.0-36.0) 09/07/17 07:00 RDW 13.6 % (11.6-15.6) 09/07/17 07:00 Plt Count 182 K/MM3 (134-434) 09/07/17 07:00 MPV 8.7 fl (7.5-11.1) D 09/07/17 07:00 Sodium 140 mmol/L (136-145) 09/07/17 07:00 Potassium 3.8 mmol/L (3.5-5.1) 09/07/17 07:00 Chloride 106 mmol/L (98-107) 09/07/17 07:00 Carbon Dioxide 25 mmol/L (21-32) 09/07/17 07:00 Anion Gap 9 (8-16) 09/07/17 07:00 BUN 19 mg/dL (7-18) H 09/07/17 07:00 Creatinine 0.8 mg/dL (0.55-1.02) 09/07/17 07:00 Creat Clearance w eGFR > 60 (>60) 09/07/17 07:00 Random Glucose 86 mg/dL (74-106) 09/07/17 07:00 Calcium 8.1 mg/dL (8.5-10.1) L 09/07/17 07:00 Total Bilirubin 0.3 mg/dL (0.2-1.0) D 09/07/17 07:00 AST 15 U/L (15-37) 09/07/17 07:00 ALT 13 U/L (12-78) 09/07/17 07:00 Alkaline Phosphatase 107 U/L (45-117) 09/07/17 07:00 Total Protein 7.2 g/dl (6.4-8.2) 09/07/17 07:00 Albumin 3.0 g/dl (3.4-5.0) L 09/07/17 07:00 Urine Color Yellow 09/06/17 22:49 Urine Appearance Clear 09/06/17 22:49 Urine pH 7.0 (5.0-8.0) 09/06/17 22:49 Ur Specific [place] 1.019 (1.001-1.035) 09/06/17 22:49 Urine Protein Negative (NEGATIVE) 09/06/17 22:49 Urine Glucose (UA) Negative (NEGATIVE) 09/06/17 22:49 Urine Ketones Negative (NEGATIVE) 09/06/17 22:49 Urine Blood Negative (NEGATIVE) 09/06/17 22:49 Urine Nitrite Negative (NEGATIVE) 09/06/17 22:49 Urine Bilirubin Negative (<2.0 mg/dL) 09/06/17 22:49 Urine Urobilinogen 4.0 e.u/dl mg/dL (0.2-1.0) H 09/06/17 22:49 Ur Leukocyte Esterase Negative (NEGATIVE) 09/06/17 22:49 RPR Titer Nonreactive (NONREACTIVE) 09/07/17 07:00 lab noted - Treatment Hospital Course: Detox Protocol Followed, Detoxed Safely, Responded well, Discharged Condition Good, Rehab Referral Accepted Patient has Accepted a Rehab Referral to: [facility] - Medication Discharge Medications: Ambulatory Orders Efavirenz/Emtricitab/Tenofovir [Atripla Tablet -] 1 tab PO DAILY #30 tab Albuterol Sulfate Inhaler - [Ventolin HFA Inhaler -] 2 puff IH Q4H PRN #1 inhaler 09/09/17 - Diagnosis (1) Alcohol dependence with uncomplicated withdrawal Current Visit: Yes Status: Acute (2) Nicotine dependence Current Visit: Yes Status: Acute Qualifiers: Nicotine product type: cigarettes Substance use status: in withdrawal Qualified Code(s): F17.213 - Nicotine dependence, cigarettes, with withdrawal (3) HIV (human immunodeficiency virus infection) Current Visit: Yes Status: Chronic (4) Schizophrenia Current Visit: Yes Status: Suspected Qualifiers: Schizophrenia type: paranoid schizophrenia Qualified Code(s): F20.0 - Paranoid schizophrenia (5) Asthma Current Visit: Yes Status: Chronic Qualifiers: Asthma severity: mild Asthma persistence: unspecified Asthma complication type: uncomplicated Qualified Code(s): J45.909 - Unspecified asthma, uncomplicated (6) Hepatitis C Current Visit: No Status: Resolved Qualifiers: Viral hepatitis chronicity: chronic Hepatic coma status: without hepatic coma Qualified Code(s): B18.2 - Chronic viral hepatitis C - AMA Did Patient Leave Against Medical Advice: No
[2017-09-10] MEDS: EFAVIRENZ 600 MG TABLET PO SCH (09:14)
[2017-09-10] MEDS: NICOTINE 21 MG/24 HOURS TOPICAL PATCH TD SCH (09:15)
[2017-09-10] MEDS: PRENATAL VITAMINS W/ FOLIC ACID TABLET (FP) PO SCH (09:15)
[2017-09-10] MEDS: EMTRICITABINE 200MG/TENOFOVIR 300MG PO SCH (09:15)
[2017-09-10 09:52] VITALS: BP 112/59; PULSE 81; TEMP 97.1
[2017-09-10] MEDS ORDERED: diazePAM 5 MG TABLET PO SCH (10:00)
[2017-09-10] MEDS ORDERED: METHADONE HCL 10 MG TABLET (FOR DETOX USE ONLY) PO SCH (10:00)
[2017-09-11] MEDS ORDERED: METHADONE HCL 5 MG TABLET (FOR DETOX USE ONLY) PO SCH (06:00)
== END 2017-09-10 10:49 | disposition home or self-care (01) | DRG 773 ==
LOC: YASAS 14:46 → Y6N 19:24
PROVIDERS: ADMIT Surgery; ATTEND Surgery
PROC: HZ2ZZZZ Detoxification Services for Substance Abuse Treatment (ICD-10-PCS; principal; 2017-09-06)
DX: F11.23 Opioid dependence with withdrawal (principal); F13.230 Sedative, hypnotic or anxiolytic dependence with withdrawal, uncomplicated; F10.230 Alcohol dependence with withdrawal, uncomplicated; F17.210 Nicotine dependence, cigarettes, uncomplicated; F20.0 Paranoid schizophrenia; F19.282 Other psychoactive substance dependence with psychoactive substance-induced sleep disorder; F19.24 Other psychoactive substance dependence with psychoactive substance-induced mood disorder; B18.2 Chronic viral hepatitis C; G47.00 Insomnia, unspecified; J45.909 Unspecified asthma, uncomplicated; L85.3 Xerosis cutis; Z21 Asymptomatic human immunodeficiency virus [HIV] infection status
CPT/HCPCS: 36415; 80053; 81003; 85027; 86593; 93005; 93010; J0475

== ENCOUNTER 2019-01-11 12:50 | Inpatient (IN) | payer OTHER ==
[2019-01-11 15:21] VITALS: BMI 21.1
--- NOTE | 2019-01-11 15:47 | HP ---
COWS - Scale Resting Pulse: 0= [place] 80 or Below Sweatin= Chills/Flushing Restless Observation: 3= Extraneous Movement Pupil Size: 0= Normal to Room Light Bone or Joint Aches: 1= Mild Discomfort Runny Nose/ Eye Tearin= Nasal Congestion GI Upset > 30mins: 2= Nausea/Diarrhea Tremor Observation: 2= Slight Tremor Visible Yawning Observation: 1= 1-2x During Session Anxiety or Irritability: 1=Feels Anxious/Irritable Goose Flesh Skin: 0=Smooth Skin COWS Score: 12 CIWA Score Nausea/Vomitin Muscle Tremors: 2 Anxiety: 2 Agitation: 2 Paroxysmal Sweats: No Perspiration Orientation: 1-Uncertain about Date Tacttile Disturbances: 0-None Auditory Disturbances: 0-None Visual Disturbances: 0-None Headache: 2-Mild CIWA-Ar Total Score: 12 - Admission Criteria OASAS Guidelines: Admission for Medically Managed Detox: Requires at least one of the followin. CIWA greater than 12 2. Seizures within the past 24 hours 3. Delirium tremens within the past 24 hours 4. Hallucinations within the past 24 hours 5. Acute intervention needed for co occurring medical disorder 6. Acute intervention needed for co occurring psychiatric disorder 7. Severe withdrawal that cannot be handled at a lower level of care (continued vomiting, continued diarrhea, abnormal vital signs) requiring intravenous medication and/or fluids 8. Admission ROS [facility] Chief Complaint: heroin/alcohol rehab Allergies/Adverse Reactions: Allergies Allergy/AdvReac Type Severity Reaction Status Date / Time chicken derived Allergy Severe Itching Verified 01/11/19 15:07 Fish Containing Products Allergy Severe Itching Verified 01/11/19 15:07 No Known Drug Allergies Allergy Verified 01/11/19 15:07 History of Present Illness: Patient is a 58 yo M with HIV, Hep C, asthma, presenting here for alcohol/ heroin detox. Patient uses 15 bags a day via inhalation and sometimes IV. 5 bags this morning. denies overdose. does not carry a narcan. Was on methadone program in [facility] on 170mg. Says she is tired and wants to quit. 4 pints of vodka every day. Smokes crack/cocaine every day. 100-1000 dollars a day. unemployed. lives in an [place]. Exam Limitations: No Limitations - Ebola screening Have you traveled outside of the country in the last 21 days: No Have you had contact with anyone from an Ebola affected area: No Do you have a fever: No - Review of Systems Constitutional: Loss of Appetite, Unintentional Wgt. Loss Respiratory: reports: Cough Cardiac: denies: Chest Pain Patient History - Patient Medical History Hx Anemia: No Hx Asthma: Yes (uses albuterol. No exacerbation for months) Hx Chronic Obstructive Pulmonary Disease (COPD): No Hx Cancer: No Hx Cardiac Disorders: No Hx Congestive Heart Failure: No Hx Hypertension: No Hx Hypercholesterolemia: No Hx Pacemaker: No HX Cerebrovascular Accident: No Hx Seizures: No Hx Dementia: No Hx Diabetes: No Hx Gastrointestinal Disorders: No Hx Liver Disease: Yes (Hep C, No Treatment Yet.) Hx Genitourinary Disorders: No Hx Sexually Transmitted Disorders: No Hx Renal Disease (ESRD): No Hx Thyroid Disease: No Hx Human Immunodeficiency Virus (HIV): Yes (on atripla ) Hx Hepatitis C: Yes (Diagnosed approx. 6 years ago. No treatment yet.) Hx Depression: No (Denies depression, suicide or violent ideation) Hx Suicide Attempt: No Hx Bipolar Disorder: No Hx Schizophrenia: Yes (Denies tx) - Patient Surgical History Past Surgical History: Yes Hx Neurologic Surgery: No Hx Cataract Extraction: No Hx Cardiac Surgery: No Hx Lung Surgery: No Hx Breast Surgery: No Hx Breast Biopsy: No Hx Abdominal Surgery: No Hx Appendectomy: No Hx Cholecystectomy: No Hx Genitourinary Surgery: No Hx Section: No Hx Orthopedic Surgery: No Hx Hysterectomy: No Other Surgical History: Tubal ligation, approx. 20 years ago. Anesthesia Reaction: No - PPD History Results: CXR (-)12/2016 - Reproductive History Last Menstrual Period: 05/27/94 - Smoking Cessation Smoking history: Current every day smoker Have you smoked in the past 12 months: Yes Aproximately how many cigarettes per day: 20 Cigars Per Day: 0 Hx Chewing Tobacco Use: No Initiated information on smoking cessation: Yes 'Breaking Loose' booklet given: 01/11/19 - Substances abused Alcohol Substance route: Oral Frequency: Daily Amount used: 3-4 pints Age of first use: 9 Date of last use: 01/11/19 Alprazolam (Xanax) Substance route: Oral Frequency: Daily Amount used: 2-3 sticks Age of first use: 57 Date of last use: 01/11/19 Benzodiazepine (Klonopin) Substance route: Oral Frequency: Daily Amount used: 4 tabs Age of first use: 53 Date of last use: 01/10/19 Heroin Substance route: Inhalation Frequency: Daily Amount used: 1 bundle Age of first use: 13 Date of last use: 01/11/19 Cocaine Substance route: Inhalation Frequency: Daily Amount used: $80 Age of first use: 13 Date of last use: 01/10/19 Crack Substance route: Smoking Frequency: Daily Amount used: $60-80 Age of first use: 12 Date of last use: 01/11/19 Family Disease History - Family Disease History Family Disease History: Heart Disease: Mother (.), Respiratory: Sister ( Asthma; .), Other: Father (, AIDS.) Admission Physical Exam S - Vital Signs Vital Signs: Vital Signs - 24 hr 01/11/19 15:08 Temperature 97.4 F L Pulse Rate 56 L Respiratory 16 Rate Blood Pressure 108/61 - Physical General Appearance: Yes: No Apparent Distress HEENTM: Yes: Other (poor dentition) Respiratory: Yes: No Respiratory Distress, No Accessory Muscle Use Cardiology: Yes: Regular Rhythm, Regular Rate Abdominal: Yes: Non Tender, Soft - Diagnostic (1) Heroin addiction Current Visit: Yes Status: Acute (2) Alcohol dependence with uncomplicated withdrawal Current Visit: No Status: Acute (3) Nicotine dependence Current Visit: No Status: Acute Qualifiers: Nicotine product type: cigarettes Substance use status: in withdrawal Qualified Code(s): F17.213 - Nicotine dependence, cigarettes, with withdrawal (4) Asthma Current Visit: No Status: Chronic Qualifiers: Asthma severity: mild Asthma persistence: unspecified Asthma complication type: uncomplicated Qualified Code(s): J45.909 - Unspecified asthma, uncomplicated (5) Cocaine dependence, uncomplicated Current Visit: No Status: Chronic (6) HIV (human immunodeficiency virus infection) Current Visit: No Status: Chronic Comment: Takes Atripla. (7) Hepatitis C Current Visit: No Status: Resolved Qualifiers: Viral hepatitis chronicity: chronic Hepatic coma status: without hepatic coma Qualified Code(s): B18.2 - Chronic viral hepatitis C Breathalyzer - Breathalyzer Breathalyzer: 0 Urine Drug Screen - Test Device Lot number: [id number] Expiration date: 09/23/20 - Control Is test valid?: Yes - Results Drug screen NEGATIVE: Yes Urine drug screen results: ARANZA-Cocaine, FEN-Fentanyl, MOP-Opiates, OXY-Oxycodone , MTD-Methadone Inpatient Rehab Admission - Rehab Decision to Admit Inpatient rehab admission?: No
[2019-01-11] MEDS ORDERED: ACETAMINOPHEN 325 MG TABLET (FP) PO PRN ×2 (15:58)
[2019-01-11] MEDS ORDERED: MAGNESIUM CITRATE 300 ML BOTTLE PO PRN (15:58)
[2019-01-11] MEDS ORDERED: chlordiazePOXIDE HCL 25 MG CAPSULE PO PRN ×2 (15:58→16:03)
[2019-01-11] MEDS ORDERED: cloNIDine HCL 0.1 MG TABLET PO PRN (15:58)
[2019-01-11] MEDS ORDERED: MAG HYDROX/AL HYDROX/SIMETH 30 ML UNIT-DOSE CUP PO PRN (15:58)
[2019-01-11] MEDS ORDERED: METHOCARBAMOL 500 MG TABLET PO PRN (15:58)
[2019-01-11] MEDS ORDERED: MAGNESIUM HYDROX 2400MG/30ML ORAL SUSPENSION 30 ML CUP PO PRN (15:58)
[2019-01-11] MEDS ORDERED: MELATONIN 5 MG TABLETS PO PRN (15:58)
[2019-01-11] MEDS ORDERED: MENTHOL/PHENOL 1 EACH UD MM PRN (15:58)
[2019-01-11] MEDS ORDERED: IBUPROFEN 400 MG TABLET (FP) PO PRN (15:58)
[2019-01-11] MEDS ORDERED: hydrOXYzine PAMOATE 25 MG CAPSULE (FP) PO PRN (15:58)
[2019-01-11] MEDS ORDERED: BISMUTH SUBSALICYLATE 524 MG/30 ML UD PO PRN (15:58)
[2019-01-11] MEDS ORDERED: chlordiazePOXIDE HCL 25 MG CAPSULE PO ONE (16:03)
[2019-01-11] MEDS ORDERED: ALBUTEROL SO4 8 GM HFA INHALER IH PRN (16:04)
--- NOTE | 2019-01-11 16:12 | PN ---
Teaching Attending Note Name of Resident: Ethan Kraft ATTENDING PHYSICIAN STATEMENT I saw and evaluated the patient. I reviewed the resident's note and discussed the case with the resident. I agree with the resident's findings and plan as documented. SUBJECTIVE: 58 yo with h/o HCV pos, HIV pos, asthma, here for alcohol- 5 pints/day of alcohol and heroin detox- IH, 5 bags/day. Uses crack cocaine. OBJECTIVE: Vital Signs - 24 hr 01/11/19 15:08 Temperature 97.4 F L Pulse Rate 56 L Respiratory 16 Rate Blood Pressure 108/61 tremulous ASSESSMENT AND PLAN: Alcohol and opioid use disorders- start detox protocols
[2019-01-11] MEDS ORDERED: chlordiazePOXIDE HCL 25 MG CAPSULE PO SCH (17:00)
[2019-01-11] MEDS ORDERED: METHADONE HCL 10 MG TABLET (FOR DETOX USE ONLY) PO ONE (18:00)
[2019-01-11] MEDS: chlordiazePOXIDE HCL 25 MG CAPSULE PO SCH ×2 (18:33→22:22)
[2019-01-11] MEDS: NICOTINE 14 MG/24 HOURS TOPICAL PATCH TD SCH (18:37)
[2019-01-11] MEDS: THIAMINE HCL 100 MG TABLET (FP) PO SCH (22:22)
[2019-01-12] MEDS: chlordiazePOXIDE HCL 25 MG CAPSULE PO SCH ×4 (05:51→22:21)
[2019-01-12] MEDS ORDERED: METHADONE HCL 10 MG TABLET (FOR DETOX USE ONLY) ONE (09:39)
[2019-01-12] MEDS ORDERED: METHADONE HCL 5 MG TABLET (FOR DETOX USE ONLY) ONE (09:40)
[2019-01-12] MEDS ORDERED: METHADONE (DETOX) 20 MG, METHADONE (DETOX) 5 MG PO ONE (10:00)
--- NOTE | 2019-01-12 10:18 | PN ---
[facility] CIWA - CIWA Score Nausea/Vomitin-Mild Nausea/No Vomiting Muscle Tremors: 3 Anxiety: 4-Mod. Anxious/Guarded Agitation: 3 Paroxysmal Sweats: 2 Orientation: 0-Oriented Tacttile Disturbances: 0-None Auditory Disturbances: 0-None Visual Disturbances: 0-None Headache: 0-None Present CIWA-Ar Total Score: 13 [facility] COWS - Scale Resting Pulse: 0= [place] 80 or Below Sweatin= Chills/Flushing Restless Observation: 0= Sits Still Pupil Size: 0= Normal to Room Light Bone or Joint Aches: 2= Severe Diffuse Aches Runny Nose/ Eye Tearin= Nasal Congestion GI Upset > 30mins: 2= Nausea/Diarrhea Tremor Observation of Outstretched Hands: 2= Slight Tremor Visible Yawning Observation: 1= 1-2x During Session Anxiety or Irritability: 2=Irritable/Anxious Goose Flesh Skin: 0=Smooth Skin COWS Score: 11 [facility] Progress Note (SOAP) Subjective: doing well with librium and methadone detox regimen mild nausea no vomiting no diarrhea lying on bed comfortably feeling tired prefers stay in bed limited conversation with staff Objective: 01/12/19 10:18 Vital Signs Temperature 98.3 F 01/12/19 09:23 Pulse Rate 63 01/12/19 09:23 Respiratory Rate 18 01/12/19 09:23 Blood Pressure 103/64 01/12/19 09:23 O2 Sat by Pulse Oximetry (%) 01/12/19 10:18 lab pending Assessment: 01/12/19 10:18 alcohol benzo opiate withdrawal sx Plan: continue librium and methadone detox regimen
[2019-01-12] MEDS: PRENATAL VITAMINS W/ FOLIC ACID TABLET (FP) PO SCH (10:21)
[2019-01-12] MEDS: ELVITEG/COB/EMTRI/TENOF (GENVOYA) TABLET (NF) PO SCH (10:22)
[2019-01-12] MEDS: NICOTINE 14 MG/24 HOURS TOPICAL PATCH TD SCH (10:23)
[2019-01-12 11:37] LABS: HEMOGLOBIN 12.3 GM/dL (10.7-15.3); MCH 33.4 pg (25.7-33.7); MCHC 34.1 g/dl (32.0-36.0); MEAN CELL VOLUME 97.8 fl (80-96); MEAN PLT VOLUME 8.9 fl (7.5-11.1); PLATELET COUNT 200 K/MM3 (134-434); RBC 3.68 M/mm3 (3.60-5.2); WHITE BLOOD COUNT 3.5 K/mm3 (4.0-10.0)
[2019-01-12 11:40] LABS: ALBUMIN 3.4 g/dl (3.4-5.0); BILIRUBIN,TOTAL 0.4 mg/dL (0.2-1); BLOOD UREA NITROGEN 20.5 mg/dL (7-18); CREATININE 0.8 mg/dL (0.55-1.3); TOT PROT 7.8 g/dl (6.4-8.2)
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
[2019-01-12] MEDS: THIAMINE HCL 100 MG TABLET (FP) PO SCH (21:40)
[2019-01-12] MEDS: QUEtiapine FUMARATE 50 MG TABLET PO SCH (21:40)
[2019-01-13] MEDS ORDERED: chlordiazePOXIDE HCL 25 MG CAPSULE PO SCH (05:00)
[2019-01-13] MEDS: chlordiazePOXIDE 5 MG CAPSULE PO SCH ×4 (05:19→22:17)
[2019-01-13] MEDS ORDERED: METHADONE HCL 10 MG TABLET (FOR DETOX USE ONLY) PO ONE (10:00)
[2019-01-13] MEDS: PRENATAL VITAMINS W/ FOLIC ACID TABLET (FP) PO SCH (10:09)
[2019-01-13] MEDS: ELVITEG/COB/EMTRI/TENOF (GENVOYA) TABLET (NF) PO SCH (10:10)
[2019-01-13] MEDS: NICOTINE 14 MG/24 HOURS TOPICAL PATCH TD SCH (10:10)
--- NOTE | 2019-01-13 13:48 | PN ---
S CIWA - CIWA Score Nausea/Vomitin Muscle Tremors: 2 Anxiety: 2 Agitation: 2 Paroxysmal Sweats: 1-Minimal Palms Moist Orientation: 0-Oriented Tacttile Disturbances: 1-Very Mild Itch/Numbness Auditory Disturbances: 0-None Visual Disturbances: 0-None Headache: 2-Mild CIWA-Ar Total Score: 12 [facility] COWS - Scale Resting Pulse: 1= [place] 81-100 Sweatin= No chills or Flushing Restless Observation: 1= Difficult to Sit Still Pupil Size: 1= Pupils >than Normal Bone or Joint Aches: 2= Severe Diffuse Aches Runny Nose/ Eye Tearin= Nasal Congestion GI Upset > 30mins: 2= Nausea/Diarrhea Tremor Observation of Outstretched Hands: 2= Slight Tremor Visible Yawning Observation: 1= 1-2x During Session Anxiety or Irritability: 2=Irritable/Anxious Goose Flesh Skin: 0=Smooth Skin COWS Score: 13 S Progress Note (SOAP) Subjective: alert,irritable,anxious,interrupted sleep,pain in the body and back Objective: 01/13/19 13:57 Vital Signs Temperature 97 F L 01/13/19 09:26 Pulse Rate 78 01/13/19 09:26 Respiratory Rate 18 01/13/19 09:26 Blood Pressure 102/65 01/13/19 09:26 O2 Sat by Pulse Oximetry (%) 01/13/19 13:57 Laboratory Last Values WBC 3.5 K/mm3 (4.0-10.0) L 01/12/19 07:50 RBC 3.68 M/mm3 (3.60-5.2) 01/12/19 07:50 Hgb 12.3 GM/dL (10.7-15.3) 01/12/19 07:50 Hct 36.0 % (32.4-45.2) 01/12/19 07:50 MCV 97.8 fl (80-96) H 01/12/19 07:50 MCH 33.4 pg (25.7-33.7) 01/12/19 07:50 MCHC 34.1 g/dl (32.0-36.0) 01/12/19 07:50 RDW 14.0 % (11.6-15.6) 01/12/19 07:50 Plt Count 200 K/MM3 (134-434) 01/12/19 07:50 MPV 8.9 fl (7.5-11.1) 01/12/19 07:50 Sodium 137 mmol/L (136-145) 01/12/19 07:50 Potassium 4.0 mmol/L (3.5-5.1) 01/12/19 07:50 Chloride 106 mmol/L (98-107) 01/12/19 07:50 Carbon Dioxide 25 mmol/L (21-32) 01/12/19 07:50 Anion Gap 7 MMOL/L (8-16) L 01/12/19 07:50 BUN 20.5 mg/dL (7-18) H 01/12/19 07:50 Creatinine 0.8 mg/dL (0.55-1.3) 01/12/19 07:50 Est GFR (CKD-EPI)AfAm 94.19 01/12/19 07:50 Est GFR (CKD-EPI)NonAf 81.27 01/12/19 07:50 Random Glucose 99 mg/dL (74-106) 01/12/19 07:50 Calcium 9.0 mg/dL (8.5-10.1) 01/12/19 07:50 Total Bilirubin 0.4 mg/dL (0.2-1) 01/12/19 07:50 AST 37 U/L (15-37) 01/12/19 07:50 ALT 29 U/L (13-61) 01/12/19 07:50 Alkaline Phosphatase 118 U/L (45-117) H 01/12/19 07:50 Total Protein 7.8 g/dl (6.4-8.2) 01/12/19 07:50 Albumin 3.4 g/dl (3.4-5.0) 01/12/19 07:50 RPR Titer Nonreactive (NONREACTIVE) 01/12/19 07:50 Assessment: 01/13/19 13:57 withdrawal symptom Plan: continue detox methadone and librium regimen,bun 20.5,dehydration,encourage oral fluid,repeat ump in am
[2019-01-13] MEDS: THIAMINE HCL 100 MG TABLET (FP) PO SCH (22:15)
[2019-01-13] MEDS: QUEtiapine FUMARATE 50 MG TABLET PO SCH (22:15)
[2019-01-14] MEDS ORDERED: chlordiazePOXIDE HCL 10 MG CAPSULE PO PRN ×2
[2019-01-14] MEDS ORDERED: chlordiazePOXIDE HCL 10 MG CAPSULE PO SCH (05:00)
[2019-01-14] MEDS: chlordiazePOXIDE HCL 10 MG CAPSULE PO SCH ×4 (05:16→22:16)
[2019-01-14] MEDS ORDERED: METHADONE HCL 5 MG TABLET (FOR DETOX USE ONLY) ONE (08:46)
[2019-01-14] MEDS ORDERED: METHADONE HCL 10 MG TABLET (FOR DETOX USE ONLY) ONE (08:46)
[2019-01-14] MEDS ORDERED: METHADONE (DETOX) 10 MG, METHADONE (DETOX) 5 MG PO ONE (10:00)
[2019-01-14] MEDS: PRENATAL VITAMINS W/ FOLIC ACID TABLET (FP) PO SCH (10:09)
[2019-01-14] MEDS: ELVITEG/COB/EMTRI/TENOF (GENVOYA) TABLET (NF) PO SCH (10:11)
[2019-01-14] MEDS: NICOTINE 14 MG/24 HOURS TOPICAL PATCH TD SCH (10:11)
[2019-01-14 11:18] LABS: BLOOD UREA NITROGEN 20.5 mg/dL (7-18); CALCIUM 8.6 mg/dL (8.5-10.1); CREATININE 0.8 mg/dL (0.55-1.3); POTASSIUM 4.2 mmol/L (3.5-5.1)
--- NOTE | 2019-01-14 15:16 | PN ---
S CIWA - CIWA Score Nausea/Vomitin-No Nausea/No Vomiting Muscle Tremors: 3 Anxiety: 3 Agitation: 2 Paroxysmal Sweats: No Perspiration Orientation: 0-Oriented Tacttile Disturbances: 1-Very Mild Itch/Numbness Auditory Disturbances: 0-None Visual Disturbances: 1-Very Mild Sensitivity Headache: 0-None Present CIWA-Ar Total Score: 10 S COWS - Scale Resting Pulse: 0= [place] 80 or Below Sweatin= Chills/Flushing Restless Observation: 1= Difficult to Sit Still Pupil Size: 0= Normal to Room Light Bone or Joint Aches: 0= None Runny Nose/ Eye Tearin= None GI Upset > 30mins: 0= None Tremor Observation of Outstretched Hands: 2= Slight Tremor Visible Yawning Observation: 1= 1-2x During Session Anxiety or Irritability: 2=Irritable/Anxious Goose Flesh Skin: 0=Smooth Skin COWS Score: 7 S Progress Note (SOAP) Subjective: Anxious, Tremors. Objective: PATIENT A & O X 3, OBSERVED AMBULATING ON DETOX UNIT UNASSISTED. IN NO ACUTE DISTRESS. 01/14/19 15:12 Vital Signs Temperature 99.3 F 01/14/19 13:23 Pulse Rate 70 01/14/19 13:23 Respiratory Rate 18 01/14/19 13:23 Blood Pressure 102/66 01/14/19 13:23 O2 Sat by Pulse Oximetry (%) Laboratory Tests 01/12/19 01/12/19 01/12/19 07:50 07:50 07:50 WBC 3.5 L RBC 3.68 Hgb 12.3 Hct 36.0 MCV 97.8 H MCH 33.4 MCHC 34.1 RDW 14.0 Plt Count 200 MPV 8.9 Sodium 137 Potassium 4.0 Chloride 106 Carbon Dioxide 25 Anion Gap 7 L BUN 20.5 H Creatinine 0.8 Est GFR (CKD-EPI)AfAm 94.19 Est GFR (CKD-EPI)NonAf 81.27 Random Glucose 99 Calcium 9.0 Total Bilirubin 0.4 AST 37 ALT 29 Alkaline Phosphatase 118 H Total Protein 7.8 Albumin 3.4 RPR Titer Nonreactive 01/14/19 08:00 WBC RBC Hgb Hct MCV MCH MCHC RDW Plt Count MPV Sodium 136 Potassium 4.2 Chloride 104 Carbon Dioxide 26 Anion Gap 7 L BUN 20.5 H Creatinine 0.8 Est GFR (CKD-EPI)AfAm 94.19 Est GFR (CKD-EPI)NonAf 81.27 Random Glucose 75 Calcium 8.6 Total Bilirubin AST ALT Alkaline Phosphatase Total Protein Albumin RPR Titer LABS NOTED. PATIENT HAS HAD LOW PLATELET LEVELS ON PREVIOUS ADMISSIONS. RESULTS OF BASIC METABOLIC PANEL NOTED - HYDRATION ENCOURAGED FOR PATIENT. 01/14/19 15:15 Assessment: 01/14/19 15:13 WITHDRAWAL SYMPTOMS. LEUKOPENIA. 01/14/19 15:15 Plan: CONTINUE DETOX. INCREASE DAILY PO WATER INTAKE.
[2019-01-14] MEDS: THIAMINE HCL 100 MG TABLET (FP) PO SCH (22:16)
[2019-01-14] MEDS: QUEtiapine FUMARATE 50 MG TABLET PO SCH (22:16)
[2019-01-15] MEDS ORDERED: chlordiazePOXIDE HCL 10 MG CAPSULE PO SCH (05:00)
[2019-01-15] MEDS: chlordiazePOXIDE 5 MG CAPSULE PO SCH ×2 (05:41→17:30)
[2019-01-15] MEDS ORDERED: METHADONE HCL 10 MG TABLET (FOR DETOX USE ONLY) PO ONE (10:00)
[2019-01-15] MEDS: ELVITEG/COB/EMTRI/TENOF (GENVOYA) TABLET (NF) PO SCH (10:32)
[2019-01-15] MEDS: NICOTINE 14 MG/24 HOURS TOPICAL PATCH TD SCH (10:32)
[2019-01-15] MEDS: PRENATAL VITAMINS W/ FOLIC ACID TABLET (FP) PO SCH (10:32)
--- NOTE | 2019-01-15 10:35 | PN ---
S CIWA - CIWA Score Nausea/Vomitin-No Nausea/No Vomiting Muscle Tremors: 2 Anxiety: 2 Agitation: 2 Paroxysmal Sweats: No Perspiration Orientation: 0-Oriented Tacttile Disturbances: 0-None Auditory Disturbances: 0-None Visual Disturbances: 0-None Headache: 0-None Present CIWA-Ar Total Score: 6 BHS COWS - Scale Resting Pulse: 0= [place] 80 or Below Sweatin= Chills/Flushing Restless Observation: 0= Sits Still Pupil Size: 0= Normal to Room Light Bone or Joint Aches: 1= Mild Discomfort Runny Nose/ Eye Tearin= None GI Upset > 30mins: 1= Stomach Cramp Tremor Observation of Outstretched Hands: 1= Tremor [place], Not Seen Yawning Observation: 1= 1-2x During Session Anxiety or Irritability: 1=Feels Anxious/Irritable Goose Flesh Skin: 0=Smooth Skin COWS Score: 6 S Progress Note (SOAP) Subjective: doing well with librium and methadone detox regimen discuss medication assisted treatment program 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 from pharmacy upon discharged patient prefers [facility] begin MAT Objective: 01/15/19 10:37 Vital Signs Temperature 98.4 F 01/15/19 09:21 Pulse Rate 69 01/15/19 09:21 Respiratory Rate 18 01/15/19 09:21 Blood Pressure 91/60 01/15/19 09:21 O2 Sat by Pulse Oximetry (%) Laboratory Last Values WBC 3.5 K/mm3 (4.0-10.0) L 01/12/19 07:50 RBC 3.68 M/mm3 (3.60-5.2) 01/12/19 07:50 Hgb 12.3 GM/dL (10.7-15.3) 01/12/19 07:50 Hct 36.0 % (32.4-45.2) 01/12/19 07:50 MCV 97.8 fl (80-96) H 01/12/19 07:50 MCH 33.4 pg (25.7-33.7) 01/12/19 07:50 MCHC 34.1 g/dl (32.0-36.0) 01/12/19 07:50 RDW 14.0 % (11.6-15.6) 01/12/19 07:50 Plt Count 200 K/MM3 (134-434) 01/12/19 07:50 MPV 8.9 fl (7.5-11.1) 01/12/19 07:50 Sodium 136 mmol/L (136-145) 01/14/19 08:00 Potassium 4.2 mmol/L (3.5-5.1) 01/14/19 08:00 Chloride 104 mmol/L (98-107) 01/14/19 08:00 Carbon Dioxide 26 mmol/L (21-32) 01/14/19 08:00 Anion Gap 7 MMOL/L (8-16) L 01/14/19 08:00 BUN 20.5 mg/dL (7-18) H 01/14/19 08:00 Creatinine 0.8 mg/dL (0.55-1.3) 01/14/19 08:00 Est GFR (CKD-EPI)AfAm 94.19 01/14/19 08:00 Est GFR (CKD-EPI)NonAf 81.27 01/14/19 08:00 Random Glucose 75 mg/dL (74-106) 01/14/19 08:00 Calcium 8.6 mg/dL (8.5-10.1) 01/14/19 08:00 Total Bilirubin 0.4 mg/dL (0.2-1) 01/12/19 07:50 AST 37 U/L (15-37) 01/12/19 07:50 ALT 29 U/L (13-61) 01/12/19 07:50 Alkaline Phosphatase 118 U/L (45-117) H 01/12/19 07:50 Total Protein 7.8 g/dl (6.4-8.2) 01/12/19 07:50 Albumin 3.4 g/dl (3.4-5.0) 01/12/19 07:50 RPR Titer Nonreactive (NONREACTIVE) 01/12/19 07:50 lab noted long history of hiv treated with benvoya tolerate well patient agrees to bring in lab report to infectious disease service for follow up Assessment: 01/15/19 10:38 alcohol benzo opiate withdrawal sx Plan: continue librium and methadone detox regimen
--- NOTE | 2019-01-15 20:34 | PN ---
[facility] Progress Note Note: Patient complained of oral thrush. White patches noted on her tongue. She denies pain or discomfort at this time Vital Signs Temperature 97.8 F 01/15/19 21:37 Pulse Rate 76 01/15/19 21:37 Respiratory Rate 18 01/16/19 00:30 Blood Pressure 94/60 01/15/19 21:37 O2 Sat by Pulse Oximetry (%) Action: Nystatin oral suspension 500,000 units 0ral Q6H ordered
[2019-01-15] MEDS: THIAMINE HCL 100 MG TABLET (FP) PO SCH (22:23)
[2019-01-15] MEDS: QUEtiapine FUMARATE 50 MG TABLET PO SCH (22:23)
[2019-01-15] MEDS: NYSTATIN 500,000 UNITS/5 ML SUSPENSION PO SCH (23:27)
[2019-01-16] MEDS ORDERED: chlordiazePOXIDE HCL 10 MG CAPSULE PO ONE (05:00)
[2019-01-16] MEDS: NYSTATIN 500,000 UNITS/5 ML SUSPENSION PO SCH ×3 (05:31→17:20)
[2019-01-16] MEDS ORDERED: METHADONE HCL 5 MG TABLET (FOR DETOX USE ONLY) PO ONE (06:00)
[2019-01-16] MEDS: PRENATAL VITAMINS W/ FOLIC ACID TABLET (FP) PO SCH (10:40)
[2019-01-16] MEDS: ELVITEG/COB/EMTRI/TENOF (GENVOYA) TABLET (NF) PO SCH (10:40)
[2019-01-16] MEDS: NICOTINE 14 MG/24 HOURS TOPICAL PATCH TD SCH (10:40)
--- NOTE | 2019-01-16 14:49 | PN ---
[facility] CIWA - CIWA Score Nausea/Vomitin-No Nausea/No Vomiting Muscle Tremors: 1-None Visible, but [place] Anxiety: 1-Mildly Anxious Agitation: 1-Slight > Activity Paroxysmal Sweats: No Perspiration Orientation: 0-Oriented Tacttile Disturbances: 0-None Auditory Disturbances: 0-None Visual Disturbances: 0-None Headache: 0-None Present CIWA-Ar Total Score: 3 S COWS - Scale Resting Pulse: 0= [place] 80 or Below Sweatin= Chills/Flushing Restless Observation: 0= Sits Still Pupil Size: 0= Normal to Room Light Bone or Joint Aches: 1= Mild Discomfort Runny Nose/ Eye Tearin= None GI Upset > 30mins: 0= None Tremor Observation of Outstretched Hands: 0= None Yawning Observation: 0= None Anxiety or Irritability: 1=Feels Anxious/Irritable Goose Flesh Skin: 0=Smooth Skin COWS Score: 3 S Progress Note (SOAP) Subjective: doing well with librium and methadone detox regimen 58 years old hiv female developed oral thrust pain with food contact oral mucosa hiv and underweight continue monitoring is necessary at this time Objective: 01/16/19 14:48 Vital Signs Temperature 97.0 F L 01/16/19 09:51 Pulse Rate 49 L 01/16/19 09:51 Respiratory Rate 18 01/16/19 09:51 Blood Pressure 96/67 01/16/19 09:51 O2 Sat by Pulse Oximetry (%) Laboratory Last Values WBC 3.5 K/mm3 (4.0-10.0) L 01/12/19 07:50 RBC 3.68 M/mm3 (3.60-5.2) 01/12/19 07:50 Hgb 12.3 GM/dL (10.7-15.3) 01/12/19 07:50 Hct 36.0 % (32.4-45.2) 01/12/19 07:50 MCV 97.8 fl (80-96) H 01/12/19 07:50 MCH 33.4 pg (25.7-33.7) 01/12/19 07:50 MCHC 34.1 g/dl (32.0-36.0) 01/12/19 07:50 RDW 14.0 % (11.6-15.6) 01/12/19 07:50 Plt Count 200 K/MM3 (134-434) 01/12/19 07:50 MPV 8.9 fl (7.5-11.1) 01/12/19 07:50 Sodium 136 mmol/L (136-145) 01/14/19 08:00 Potassium 4.2 mmol/L (3.5-5.1) 01/14/19 08:00 Chloride 104 mmol/L (98-107) 01/14/19 08:00 Carbon Dioxide 26 mmol/L (21-32) 01/14/19 08:00 Anion Gap 7 MMOL/L (8-16) L 01/14/19 08:00 BUN 20.5 mg/dL (7-18) H 01/14/19 08:00 Creatinine 0.8 mg/dL (0.55-1.3) 01/14/19 08:00 Est GFR (CKD-EPI)AfAm 94.19 01/14/19 08:00 Est GFR (CKD-EPI)NonAf 81.27 01/14/19 08:00 Random Glucose 75 mg/dL (74-106) 01/14/19 08:00 Calcium 8.6 mg/dL (8.5-10.1) 01/14/19 08:00 Total Bilirubin 0.4 mg/dL (0.2-1) 01/12/19 07:50 AST 37 U/L (15-37) 01/12/19 07:50 ALT 29 U/L (13-61) 01/12/19 07:50 Alkaline Phosphatase 118 U/L (45-117) H 01/12/19 07:50 Total Protein 7.8 g/dl (6.4-8.2) 01/12/19 07:50 Albumin 3.4 g/dl (3.4-5.0) 01/12/19 07:50 RPR Titer Nonreactive (NONREACTIVE) 01/12/19 07:50 lab noted Assessment: 01/16/19 14:48 alcohol benzo opiate withdrawal sx Plan: continue librium and methadone detox
--- NOTE | 2019-01-16 15:04 | DS ---
[facility] Detox Discharge Summary Admission Date: 01/11/19 Discharge Date: 01/16/19 - History Present History: Alcohol Dependence, Opioid Dependence, Sedative Dependence Additional Comments: patient will be continue monitored in [facility] - Physical Exam Results Vital Signs: Vital Signs Temperature 97.0 F L 01/16/19 09:51 Pulse Rate 49 L 01/16/19 09:51 Respiratory Rate 18 01/16/19 09:51 Blood Pressure 96/67 01/16/19 09:51 O2 Sat by Pulse Oximetry (%) - Treatment Hospital Course: Detox Protocol Followed, Detoxed Safely, Responded well, Discharged Condition Good, Rehab Referral Accepted - Medication Discharge Medications: Ambulatory Orders Elviteg/Cob/Emtri/Tenof Alafen [Genvoya Tablet] 1 each PO DAILY 01/11/19 Albuterol Sulfate Inhaler - [Ventolin HFA Inhaler -] 2 puff IH Q4H PRN #1 inhaler 01/15/19 Naloxone HCl [Narcan] 4 mg NS ASDIR PRN #1 spray 01/15/19 - Diagnosis (1) Alcohol dependence with uncomplicated withdrawal Current Visit: Yes Status: Acute (2) Opioid dependence with withdrawal Current Visit: Yes Status: Acute (3) Nicotine dependence Current Visit: No Status: Acute Qualifiers: Nicotine product type: cigarettes Substance use status: in withdrawal Qualified Code(s): F17.213 - Nicotine dependence, cigarettes, with withdrawal (4) Sedative, hypnotic or anxiolytic dependence with withdrawal, uncomplicated Current Visit: Yes Status: Acute (5) Substance induced mood disorder Current Visit: Yes Status: Suspected (6) Asthma Current Visit: Yes Status: Chronic Qualifiers: Asthma severity: mild Asthma persistence: intermittent Asthma complication type: with status asthmaticus Qualified Code(s): J45.22 - Mild intermittent asthma with status asthmaticus (7) HIV (human immunodeficiency virus infection) Current Visit: Yes Status: Chronic Qualifiers: HIV symptom status: asymptomatic Qualified Code(s): Z21 - Asymptomatic human immunodeficiency virus [HIV] infection status (8) Hepatitis C Current Visit: Yes Status: Suspected Qualifiers: Viral hepatitis chronicity: chronic Hepatic coma status: without hepatic coma Qualified Code(s): B18.2 - Chronic viral hepatitis C - AMA Did Patient Leave Against Medical Advice: No CIWA Score - CIWA Score Nausea/Vomitin-No Nausea/No Vomiting Muscle Tremors: 1-None Visible, but [place] Anxiety: 1-Mildly Anxious Agitation: 1-Slight > Activity Paroxysmal Sweats: No Perspiration Orientation: 0-Oriented Tacttile Disturbances: 0-None Auditory Disturbances: 0-None Visual Disturbances: 0-None Headache: 0-None Present CIWA-Ar Total Score: 3
[2019-01-16 17:09] VITALS: BP 93/61; PULSE 72; TEMP 96
== END 2019-01-16 17:28 | disposition home or self-care (01) | DRG 773 ==
LOC: YASAS 12:50 → Y3N 17:58
PROVIDERS: ADMIT Surgery; ATTEND Surgery
PROC: HZ2ZZZZ Detoxification Services for Substance Abuse Treatment (ICD-10-PCS; principal; 2019-01-11)
DX: F10.230 Alcohol dependence with withdrawal, uncomplicated (principal); F11.23 Opioid dependence with withdrawal; F13.230 Sedative, hypnotic or anxiolytic dependence with withdrawal, uncomplicated; F17.213 Nicotine dependence, cigarettes, with withdrawal; F19.282 Other psychoactive substance dependence with psychoactive substance-induced sleep disorder; F19.24 Other psychoactive substance dependence with psychoactive substance-induced mood disorder; Z21 Asymptomatic human immunodeficiency virus [HIV] infection status; D72.819 Decreased white blood cell count, unspecified; J45.22 Mild intermittent asthma with status asthmaticus; B18.2 Chronic viral hepatitis C; B37.0 Candidal stomatitis; R63.6 Underweight; Z68.21 Body mass index [BMI] 21.0-21.9, adult; Z86.59 Personal history of other mental and behavioral disorders
CPT/HCPCS: 36415; 80048; 80053; 85027; 86593

== ENCOUNTER 2019-01-16 18:46 | Inpatient (IN) | payer OTHER ==
--- NOTE | 2019-01-16 15:06 | HP ---
[facility] Rehab Assess/Revision - Admission History Admitted to Rehab from: [facility] Date of Admission to Rehab: - Findings Detox History & Physical reviewed: Yes Concur with findings: Yes Comments/Additional Findings: transferred from detox to rehab admission as perprotocol Inpatient Rehab Admission - Rehab Decision to Admit Inpatient rehab admission?: Yes - Initial Determination Are CD services needed?: Yes Free of communicable disease: Yes Not in need of hospitalization: Yes - Rehab Admission Criteria Previous failed treatment: Yes Poor recovery environment: Yes Comorbidities: Yes Lacks judgement: Yes Patient is meeting Inpatient Rehab admission criteria:: Yes
[~2019-01-16 18:46] MED LIST: ACETAMINOPHEN 325 MG TABLET (FP) PO PRN; ALBUTEROL SO4 8 GM HFA INHALER IH PRN; IBUPROFEN 400 MG TABLET (FP) PO PRN; LOPERAMIDE HCL 2 MG CAPSULE PO PRN; MAG HYDROX/AL HYDROX/SIMETH 30 ML UNIT-DOSE CUP PO PRN; MAGNESIUM CITRATE 300 ML BOTTLE PO PRN; MAGNESIUM HYDROX 2400MG/30ML ORAL SUSPENSION 30 ML CUP PO PRN; MENTHOL/PHENOL 1 EACH UD MM PRN; NICOTINE POLACRILEX 2 MG GUM BC PRN; P-EPHED 60MG/TRIPROLIDI 2.5MG TABLET PO PRN; guaiFENesin 200 MG/10 ML 10 ML UNIT-DOSE CUPS PO PRN
[2019-01-16] MEDS ORDERED: THIAMINE HCL 100 MG TABLET (FP) PO SCH (22:00)
[2019-01-16] MEDS ORDERED: QUEtiapine FUMARATE 50 MG TABLET PO SCH (22:00)
[2019-01-16] MEDS ORDERED: MELATONIN 5 MG TABLETS PO PRN (22:00)
[2019-01-17 07:15] VITALS: BP 95/66; PULSE 62; TEMP 97.4
[2019-01-17] MEDS ORDERED: PT OWN MED DRAWER 7, Y5N ONE ×3 (09:43→11:12)
[2019-01-17] MEDS ORDERED: NICOTINE 14 MG/24 HOURS TOPICAL PATCH TD SCH (10:00)
[2019-01-17] MEDS ORDERED: PRENATAL VITAMINS W/ FOLIC ACID TABLET (FP) PO SCH (10:00)
[2019-01-17] MEDS ORDERED: ELVITEG/COB/EMTRI/TENOF (GENVOYA) TABLET (NF) PO SCH ×2 (10:00→11:00)
[2019-01-17] MEDS ORDERED: AMMONIUM LACTATE 12% LOTION 225 GM BOTTLE TP PRN (10:37)
[2019-01-17] MEDS ORDERED: SELENIUM SULFIDE 2.5% LOTION 4 OZ. TP SCH (10:45)
[2019-01-17] MEDS ORDERED: NYSTATIN 500,000 UNITS/5 ML SUSPENSION PO SCH (12:00)
--- NOTE | 2019-01-17 14:12 | DS ---
[facility] Rehab Discharge Summary - [facility] Rehab Discharge Summary Admission Date: 01/16/19 Discharge Date: 01/17/19 - History Present History: Alcohol dependence, Cocaine dependence, Opioid dependence, Sedative dependence Additional Comments: Pt was admitted yesterday to rehab for NIKKI and states he wants to leave "right now". Pt declined to engage in communication with this policy writer sales stating " I'm getting ready to walk out of here. I don't want anything". Pt reports she is going back to her PCP Dr. Chaves(pt not sure of spelling) at [place], [place]. Pertinent Past History: Asthma HIV+ Hep C Schizophrenia - Discharge Physical Exam Vital Signs: Vital Signs Temperature 97.4 F L 01/17/19 07:14 Pulse Rate 62 01/17/19 07:14 Respiratory Rate 18 01/17/19 07:14 Blood Pressure 95/66 01/17/19 07:14 O2 Sat by Pulse Oximetry (%) Pertinent Admission Physical Exam Findings: Unremarkable/Unchanged. - Treatment Discharge Condition: Discharge condition good Hospital Course: safe short stay - Medication Discharge Medications: Ambulatory Orders Elviteg/Cob/Emtri/Tenof Alafen [Genvoya Tablet] 1 each PO DAILY 01/11/19 Albuterol Sulfate Inhaler - [Ventolin HFA Inhaler -] 2 puff IH Q4H PRN #1 inhaler 01/15/19 Naloxone HCl [Narcan] 4 mg NS ASDIR PRN #1 spray 01/15/19 - Medication-Assisted Treatment (MAT) Medication-Assisted Treatment (MAT): No - Discharge Instructions Diet, activity, other medical instructions: Diet:Regular Activity: oob, ad kavitha Other medical instructions:follow up with primary care provider at [facility] on [place], [place] for medical management. - Diagnosis (1) Nicotine dependence Current Visit: Yes Status: Chronic Qualifiers: Nicotine product type: cigarettes Substance use status: uncomplicated Qualified Code(s): F17.210 - Nicotine dependence, cigarettes, uncomplicated (2) Cocaine dependence, uncomplicated Current Visit: Yes Status: Chronic (3) HIV (human immunodeficiency virus infection) Current Visit: Yes Status: Chronic Qualifiers: HIV symptom status: unspecified Qualified Code(s): B20 - Human immunodeficiency virus [HIV] disease (4) Hepatitis C Current Visit: Yes Status: Suspected Qualifiers: Viral hepatitis chronicity: unspecified (5) Asthma Current Visit: Yes Status: Chronic Qualifiers: Asthma severity: unspecified severity Asthma persistence: unspecified Asthma complication type: unspecified Qualified Code(s): J45.909 - Unspecified asthma, uncomplicated (6) Opioid dependence Current Visit: Yes Status: Chronic Qualifiers: Substance use status: uncomplicated Qualified Code(s): F11.20 - Opioid dependence, uncomplicated (7) Sedative dependence Current Visit: Yes Status: Suspected (8) Alcohol dependence Current Visit: Yes Status: Chronic Qualifiers: Substance use status: uncomplicated Qualified Code(s): F10.20 - Alcohol dependence, uncomplicated - Follow-up Referral Minutes to complete discharge: 10 - AMA Did Patient Leave Against Medical Advice: Yes
== END 2019-01-17 13:55 | disposition left against medical advice (07) | DRG 770 ==
LOC: YASAS 18:46 → Y3E 18:56
PROVIDERS: ADMIT Neuromusculoskeletal Medicine & OMM; ATTEND Neuromusculoskeletal Medicine & OMM
PROC: HZ42ZZZ Group Counseling for Substance Abuse Treatment, Cognitive-Behavioral (ICD-10-PCS; principal; 2019-01-16)
DX: F11.20 Opioid dependence, uncomplicated (principal); F10.20 Alcohol dependence, uncomplicated; F13.20 Sedative, hypnotic or anxiolytic dependence, uncomplicated; F14.20 Cocaine dependence, uncomplicated; F17.210 Nicotine dependence, cigarettes, uncomplicated; Z21 Asymptomatic human immunodeficiency virus [HIV] infection status; J45.909 Unspecified asthma, uncomplicated